=== PATIENT | female | born 1970 | race Hispanic/Latino ===

== ENCOUNTER 2017-06-24 11:08 | Day surgery (SDC) | payer OTHER ==
[2017-06-23 08:01] VITALS: BMI 25.7
[2017-06-24 11:56] LABS: BASO # 0.02 K/mm3 (0.0-2.0); BASO % 0.5 % (0.0-3.0); EOS # 0.1 (0.0-0.7); EOS % 1.8 % (1.5-5.0); GRAN # 1.72 (1.4-6.5); GRAN % 43.1 % (50.0-68.0); HEMATOCRIT 39.7 % (36.0-48.0); LYMPH # 1.9 (1.2-3.4); LYMPH % 47.6 % (22.0-35.0); MEAN CELL VOLUME 86.7 fl (80.0-105.0); MEAN CORPUSCULAR HEMOGLOBIN 29.3 pg (25.0-35.0); MEAN CORPUSCULAR HGB CONC 33.8 g/dl (31.0-37.0); MONO # 0.3 (0.1-0.6); RED CELL DISTRIBUTION WIDTH 12.9 % (11.5-14.5)
[2017-06-24 11:58] LABS: BLOOD UREA NITROGEN 18 mg/dL (7-21); CALCIUM 9.6 mg/dL (8.4-10.5); CARBON DIOXIDE 30 mmol/L (21-33); CHLORIDE 102 mmol/L (98-107); GFR AFRICAN-AMERICAN > 60; GLUCOSE,RANDOM 87 mg/dL (70-110); POTASSIUM 3.9 mmol/L (3.6-5.0); SODIUM 142 mmol/L (132-148)
[2017-06-24 12:02] LABS: INR 1.12 (0.93-1.08); PARTIAL THROMBOPLASTIN TIME 32.8 Seconds (25.1-36.5)
[2017-06-24] MEDS ORDERED: Midazolam 2 MG/2 ML VIAL ONE (12:55)
[2017-06-24] MEDS ORDERED: Lidocaine 1% Inj (20ml) ONE (12:56)
[2017-06-24] MEDS ORDERED: Oxycodone/Acetaminophen 5/325 mg Tab PO PRN (13:42)
[2017-06-24] MEDS ORDERED: Sodium Chloride 0.45% 1,000 ML IV SCH (13:45)
[2017-06-24] MEDS ORDERED: Oxycodone/Acetaminophen 5/325 mg Tab ONE (14:36)
[2017-06-24 14:49] VITALS: TEMP 97.4; O2SAT 100
[2017-06-24 17:08] VITALS: BP 118/760; PULSE 56; RESP 18
--- NOTE | 2017-06-24 19:32 | US ---
PROCEDURE: Ultrasound-guided right thyroid fine needle aspiration biopsy. CLINICAL HISTORY: Solitary 3 cm right thyroid nodule. Evaluate for malignancy. PHYSICIAN(S): Ian Hooker M.D. TECHNIQUE: The relative risks and indications for the procedure were explained to the patient and consent obtained. The patient was placed supine on the stretcher with the neck extended and preliminary sonography of the thyroid performed. This reveal a well-defined 3 cm hypoechoic nodule with cystic areas. The remainder of the thyroid parenchyma is homogeneous in echotexture. The neck was prepped and draped in the usual sterile fashion. Conscious sedation and monitoring were provided throughout the procedure by a nurse. 1% Xylocaine was used to anesthetize the skin and soft tissues at the access site. Three passes with a 22-gauge needle were performed under ultrasound guidance for fine needle aspiration of the 3 cm hypoechoic nodule in the right thyroid. The slides were reviewed by pathology and deemed adequate. The patient tolerated the procedure well. IMPRESSION: 1. Ultrasound guided fine needle aspiration of a 3 cm hypoechoicnodule in the right thyroid.
== END 2017-06-24 17:30 | disposition home or self-care (01) ==
LOC: SDS 11:08
PROVIDERS: ATTEND Radiology Vascular & Interventional Radiology
DX: E04.1 Nontoxic single thyroid nodule (principal)
CPT/HCPCS: 10022; 36415; 80048; 85025; 85610; 85730; 88173; 88305; J2250; J2405; J3010; J7030

== ENCOUNTER 2018-01-20 13:59 | Emergency (ER) | payer OTHER ==
--- NOTE | 2018-01-20 14:38 | ED PDOC ---
Arrival/HPI - General Time Seen by Provider: 01/20/18 14:36 Historian: Patient, Family - History of Present Illness Narrative History of Present Illness (Text): 01/20/18 14:38 47 y/o female, pmh including varicose vein, post menopausal, c/o lt. leg rash without pain or swelling x 2 days. Pt. stated that she was scratching the varicose vein/rash couple days ago as it was itching her, resulted in tiny dot rashes, not on any blood thinner or anticoagulant, no pain or fever, no numbness or tingling, no palpitation, no other medical or psychological complaints. Past Medical History - Provider Review Nursing Documentation Reviewed: Yes - Cardiac Hx Pacemaker: No - Neurological Hx Paralysis: No - Hematological/Oncological Hx Blood Transfusions: No - Musculoskeletal/Rheumatological Hx Musculoskeletal Disorders: No - Psychiatric Hx Emotional Abuse: No Hx Physical Abuse: No Hx Substance Use: No - Anesthesia Hx Anesthesia Reactions: No Hx Malignant Hyperthermia: No - Suicidal Assessment Feels Threatened In Home Enviroment: No Family/Social History - Physician Review Nursing Documentation Reviewed: Yes Family/Social History: Unknown Family HX Hx Alcohol Use: No Hx Substance Use: No Allergies/Home Meds Allergies/Adverse Reactions: Allergies No Known Allergies Allergy (Verified 06/23/17 08:00) Review of Systems - Review of Systems Constitutional: absent: Fatigue, Fevers Eyes: absent: Vision Changes ENT: absent: Hearing Changes Respiratory: absent: SOB, Cough Cardiovascular: absent: Chest Pain Gastrointestinal: absent: Abdominal Pain, Nausea, Vomiting Musculoskeletal: absent: Arthralgias, Back Pain Skin: Rash, Pruritis. absent: Skin Lesions, Laceration, Abscess, Ulcer, Cellulitis Neurological: absent: Headache, Dizziness Psychiatric: absent: Anxiety, Depression, Suicidal Ideation Physical Exam Vital Signs Reviewed: Yes Vital Signs Temp Pulse Resp BP Pulse Ox 01/20/18 14:34 97.8 F 61 16 121/72 99 Temperature: Afebrile Blood Pressure: Normal Pulse: Regular Respiratory Rate: Normal Appearance: Positive for: Well-Appearing, Non-Toxic, Comfortable Pain Distress: None Mental Status: Positive for: Alert and Oriented X 3 - Systems Exam Head: Present: Atraumatic, Normocephalic Pupils: Present: PERRL Extroacular Muscles: Present: EOMI Conjunctiva: Present: Normal Mouth: Present: Moist Mucous Membranes Neck: Present: Normal Range of Motion Respiratory/Chest: Present: Clear to Auscultation, Good Air Exchange. No: Respiratory Distress, Accessory Muscle Use Cardiovascular: Present: Regular Rate and Rhythm, Normal S1, S2. No: Murmurs Abdomen: No: Tenderness, Distention, Peritoneal Signs Back: Present: Normal Inspection Upper Extremity: Present: Normal Inspection. No: Cyanosis, Edema Lower Extremity: Present: Normal Inspection. No: Edema Neurological: Present: GCS=15, CN II-XII Intact, Speech Normal Skin: Present: Warm, Dry, Rashes (lt. distal tibia/fibula regon noted to have patchy approx. [id number] petechiae rash with mild pauple rash noted, no streaking or cellulitis, no ulcers. ), Normal Color Psychiatric: Present: Alert, Oriented x 3, Normal Insight, Normal Concentration Medical Decision Making ED Course and Treatment: 01/20/18 15:17 Differential: dermatitis vs. thrombocytopenia vs. rash -cbc to check platete -observe and reassess 01/20/18 15:34 -Labs are non-significant. -Discharge home with hydrocortisone, avoid rubbing or scratching the skin or varicose vein, follow up with your own pmd and cook apprentice within 2 days, return to the ER for any new or worsening signs or symptoms. - Lab Interpretations Lab Results: 01/20/18 15:10 Lab Results 01/20/18 15:10: WBC 5.0 D, RBC 4.35, Hgb 12.3, Hct 36.1, MCV 83.0 D, MCH 28.3 , MCHC 34.1, RDW 12.9, Plt Count 226, MPV 9.8, Gran % 45.8 L, Lymph % (Auto) 45.0 H, [place] % (Auto) 6.2 H, Eos % (Auto) 2.6, Baso % (Auto) 0.4, Gran # 2.28, Lymph # (Auto) 2.2, [place] # (Auto) 0.3, Eos # (Auto) 0.1, Baso # (Auto) 0.02 I have reviewed the lab results: Yes - PA / COUPLER / Resident Statement MD/DO has reviewed & agrees with the documentation as recorded. Disposition/Present on Arrival - Present on Arrival Any Indicators Present on Arrival: No History of DVT/PE: No History of Uncontrolled Diabetes: No Urinary Catheter: No History of Decub. Ulcer: No - Disposition Have Diagnosis and Disposition been Completed?: Yes Diagnosis: Petechiae or ecchymoses, Dermatitis Disposition: HOME/ ROUTINE Disposition Time: 15:18 Patient Plan: Discharge Patient Problems: Current Active Problems Problem Status Onset Dermatitis Acute Petechiae or ecchymoses Acute Condition: GOOD Additional Instructions: -Discharge home with hydrocortisone, avoid rubbing or scratching the skin or varicose vein, follow up with your own pmd and cook apprentice within 2 days, return to the ER for any new or worsening signs or symptoms. Prescriptions: Hydrocortisone 1% Cream [Cortizone 1% Cream] 1 appl TP BID #30 g Referrals: PCP,NO [Primary Care Provider] - Follow up with primary Mady Solis MD [Staff Provider] - Follow up with primary [facility] [place] [facility] [place] - Follow up with primary Forms: WORK NOTE
[2018-01-20 14:39] VITALS: BP 121/72; PULSE 61; RESP 16; TEMP 97.8; O2SAT 99; BMI 23.1
[2018-01-20 15:26] LABS: BASO # 0.02 K/mm3 (0.0-2.0); BASO % 0.4 % (0.0-3.0); EOS # 0.1 (0.0-0.7); EOS % 2.6 % (1.5-5.0); GRAN # 2.28 (1.4-6.5); GRAN % 45.8 % (50.0-68.0); HEMOGLOBIN 12.3 g/dL (12.0-16.0); LYMPH # 2.2 (1.2-3.4); MEAN CORPUSCULAR HEMOGLOBIN 28.3 pg (25.0-35.0); MEAN CORPUSCULAR HGB CONC 34.1 g/dl (31.0-37.0); MEAN PLATELET VOLUME 9.8 fl (7.0-11.0); MONO # 0.3 (0.1-0.6); MONO % 6.2 % (1.0-6.0); RBC 4.35 10^6/uL (3.5-6.1); RED CELL DISTRIBUTION WIDTH 12.9 % (11.5-14.5)
== END 2018-01-20 15:38 | disposition home or self-care (01) ==
LOC: ED 13:59
DX: R23.3 Spontaneous ecchymoses (principal); L30.9 Dermatitis, unspecified

== ENCOUNTER 2018-02-12 09:49 | Emergency (ER) | payer OTHER ==
[2018-02-12 09:50] VITALS: BMI 23.1
--- NOTE | 2018-02-12 10:50 | ED PDOC ---
Arrival/HPI - General Chief Complaint: Abdominal Pain Time Seen by Provider: 02/12/18 10:36 Historian: Patient - History of Present Illness Narrative History of Present Illness (Text): 02/12/18 10:37 47 y/o female, pmh including varicose vein, nkda, post menopausal, c/o generalized abdominal pain x 3 days with no fall or trauma. Pt. stated that she has upper and lower abdominal pain, non-radiating, associated with distension, feels nausea but no vomiting, no diarrhea, no recent traveling, no urinary symptoms, no night sweat, no palpitation or chest pain, no vaginal discharge or bleeding, no numbness or tingling, no vaginal bleeding or discharge , no other medical or psychological complaints. Past Medical History - Provider Review Nursing Documentation Reviewed: Yes - Infectious Disease Hx of Infectious Diseases: None - Cardiac Hx Cardiac Disorders: No - Pulmonary Hx Respiratory Disorders: No - Neurological Hx Neurological Disorder: No - HEENT Hx HEENT Disorder: No - Renal Hx Renal Disorder: No - Endocrine/Metabolic Hx Endocrine Disorders: Yes Other/Comment: THYROID MASS - Hematological/Oncological Hx Blood Disorders: No - Integumentary Hx Dermatological Disorder: No - Musculoskeletal/Rheumatological Hx Musculoskeletal Disorders: No - Gastrointestinal Hx Gastrointestinal Disorders: No - Genitourinary/Gynecological Hx Genitourinary Disorders: No - Psychiatric Hx Psychophysiologic Disorder: No Hx Substance Use: No - Anesthesia Hx Anesthesia Reactions: No Hx Malignant Hyperthermia: No - Suicidal Assessment Feels Threatened In Home Enviroment: No Family/Social History - Physician Review Nursing Documentation Reviewed: Yes Family/Social History: Unknown Family HX Smoking Status: Never Smoked Hx Alcohol Use: Yes Frequency of alcohol use: Socially Hx Substance Use: No Allergies/Home Meds Allergies/Adverse Reactions: Allergies No Known Allergies Allergy (Verified 02/12/18 10:25) Review of Systems - Review of Systems Constitutional: absent: Fatigue, Fevers Eyes: absent: Vision Changes ENT: absent: Hearing Changes Respiratory: absent: SOB, Cough Cardiovascular: absent: Chest Pain Gastrointestinal: Abdominal Pain, Nausea. absent: Diarrhea, Vomiting Musculoskeletal: absent: Arthralgias, Back Pain Skin: absent: Rash, Pruritis, Skin Lesions Neurological: absent: Headache, Dizziness Psychiatric: absent: Anxiety, Depression, Suicidal Ideation Physical Exam Vital Signs Reviewed: Yes Vital Signs Temp Pulse Resp BP Pulse Ox 02/12/18 11:32 85 19 132/56 L 98 02/12/18 10:26 98.4 F 62 16 102/62 99 Temperature: Afebrile Blood Pressure: Normal Pulse: Regular Respiratory Rate: Normal Appearance: Positive for: Well-Appearing, Non-Toxic, Comfortable Pain Distress: Moderate Mental Status: Positive for: Alert and Oriented X 3 - Systems Exam Head: Present: Atraumatic, Normocephalic Pupils: Present: PERRL Extroacular Muscles: Present: EOMI Conjunctiva: Present: Normal Mouth: Present: Moist Mucous Membranes Neck: Present: Normal Range of Motion Respiratory/Chest: Present: Clear to Auscultation, Good Air Exchange. No: Respiratory Distress, Accessory Muscle Use Cardiovascular: Present: Regular Rate and Rhythm, Normal S1, S2. No: Murmurs Abdomen: Present: Tenderness (+ttp on the epigastric and periumbilical region, negative russell signs. ). No: Distention, Peritoneal Signs, Rebound, Guarding Back: Present: Normal Inspection. No: CVA Tenderness, Midline Tenderness Upper Extremity: Present: Normal Inspection. No: Cyanosis, Edema Lower Extremity: Present: Normal Inspection. No: Edema Neurological: Present: GCS=15, CN II-XII Intact, Speech Normal, Motor Func Grossly Intact, Gait Normal, Memory Normal Skin: Present: Warm, Dry, Normal Color. No: Rashes Psychiatric: Present: Alert, Oriented x 3, Normal Insight, Normal Concentration Medical Decision Making ED Course and Treatment: 02/12/18 10:56 Differential: Gastritis vs. Pancreatitis vs. Appendicitis vs. UTI -Labs/UA -CT abdomen and pelvis -IVF/pepcid/zofran -Observe and reassess 02/12/18 13:57 -Urine hcg is negative -UA show no UTI -Labs show no acute findings -Lipase is negative -CT abdomen and pelvis: No acute intra-abdominal findings except incidental disc bulging finding noted but the patient has no lower back pain or radiating extremity pain. -Pt.'s pain is decreased and resolved, gave juice and food, passed the po challange, no pain, vitally stable, stable for outpatient GI follow up. -Discharge home with pepcid, BRAT diet, follow up with your own pmd and GI within 2 days, return to the ER for any new or worsening signs or symptoms. - Lab Interpretations Lab Results: 02/12/18 11:30 02/12/18 11:30 Lab Results 02/12/18 11:30: WBC 4.9, RBC 4.38, Hgb 12.5, Hct 36.9, MCV 84.2, MCH 28.5, MCHC 33.9, RDW 13.0, Plt Count 210, MPV 9.7, Gran % 46.1 L, Lymph % (Auto) 42.2 H, [place] % (Auto) 8.1 H, Eos % (Auto) 3.0, Baso % (Auto) 0.6, Gran # 2.27, Lymph # ( Auto) 2.1, [place] # (Auto) 0.4, Eos # (Auto) 0.2, Baso # (Auto) 0.03 02/12/18 11:30: Sodium 143, Potassium 4.1, Chloride 105, Carbon Dioxide 29, Anion Gap 13, BUN 16, Creatinine 0.8, Est GFR ( Amer) > 60, Est GFR (Non- Af Amer) > 60, Random Glucose 93, Calcium 9.2, Magnesium 2.2, Total Bilirubin 0.5, AST 27, ALT 17, Alkaline Phosphatase 64, Total Protein 7.6, Albumin 4.2, Globulin 3.4, Albumin/Globulin Ratio 1.3, Lipase 55 02/12/18 11:29: Urine Color Yellow, Urine Appearance Clear, Urine pH 7.0, Ur Specific [place] 1.015, Urine Protein Negative, Urine Glucose (UA) Negative, Urine Ketones Negative, Urine Blood Negative, Urine Nitrate Negative, Urine Bilirubin Negative, Urine Urobilinogen 0.2, Ur Leukocyte Esterase Negative I have reviewed the lab results: Yes - RAD Interpretation Radiology Orders: 02/12/18 10:52 ABDOMEN & PELVIS [ABD & PELVIS IV CONTRAST ONLY] [CT] Stat PROCEDURE: CT Abdomen and Pelvis with contrast HISTORY: upper and lower abdominal pain x 3 days COMPARISON: None. TECHNIQUE: Contrast dose: 100 cc of Omni 300 Radiation dose: Total exam DLP = 418 mGy-cm. This CT exam was performed using one or more of the following dose reduction techniques: Automated exposure control, adjustment of the mA and/or kV according to patient size, and/or use of iterative reconstruction technique. FINDINGS: LOWER THORAX: Unremarkable. LIVER: Unremarkable. No gross lesion or ductal dilatation. GALLBLADDER AND BILE DUCTS: Unremarkable. PANCREAS: Unremarkable. No gross lesion or ductal dilatation. SPLEEN: Unremarkable. ADRENALS: Unremarkable. No mass. KIDNEYS AND URETERS: Unremarkable. No hydronephrosis. No solid mass. VASCULATURE: Unremarkable. No aortic aneurysm. BOWEL: Unremarkable. No obstruction. No gross mural thickening. APPENDIX: Normal appendix. PERITONEUM: Unremarkable. No free fluid. No free air. LYMPH NODES: Unremarkable. No enlarged lymph nodes. BLADDER: Unremarkable. REPRODUCTIVE: Unremarkable. BONES: Mild disc bulge at L1-2 and L2-3 OTHER FINDINGS: None. IMPRESSION: No acute intra-abdominal findings Geodetic Surveyor Technologist: Radiologist - Medication Orders Current Medication Orders: Sodium Chloride (Sodium Chloride 0.9%) 1,000 mls @ 100 mls/hr IV .Q10H ZEFERINO Last Admin: 02/12/18 11:36 Dose: 100 mls/hr eMAR Start Stop Document 02/12/18 11:36 GMI (Rec: 02/12/18 11:37 GMI [id number]) Intravenous Solution Start Date 02/12/18 Start Time 11:37 End Date 02/12/18 Discontinued Medications Famotidine (Pepcid) 20 mg IVP STAT STA Stop: 02/12/18 10:53 Last Admin: 02/12/18 11:38 Dose: 20 mg IVP Administration Document 02/12/18 11:38 GMI (Rec: 02/12/18 11:38 GMI [id number]) Charges for Administration # of IVP Administrations 1 Ondansetron HCl (Zofran Inj) 4 mg IVP STAT STA Stop: 02/12/18 10:53 Last Admin: 02/12/18 11:37 Dose: 4 mg IVP Administration Document 02/12/18 11:37 GMI (Rec: 02/12/18 11:38 GMI [id number]) Charges for Administration # of IVP Administrations 1 - PA / ANTISQUEAK FILLER / Resident Statement /DO has reviewed & agrees with the documentation as recorded. Disposition/Present on Arrival - Present on Arrival Any Indicators Present on Arrival: No History of DVT/PE: No History of Uncontrolled Diabetes: No Urinary Catheter: No History of Decub. Ulcer: No History Surgical Site Infection Following: None - Disposition Have Diagnosis and Disposition been Completed?: Yes Diagnosis: Abdominal pain Disposition: HOME/ ROUTINE Disposition Time: 12:47 Patient Plan: Discharge Patient Problems: Current Active Problems Problem Status Onset Abdominal pain Acute Condition: IMPROVED Additional Instructions: -Discharge home with pepcid, tylenol, BRAT diet, follow up with your own pmd and GI within 2 days, return to the ER for any new or worsening signs or symptoms. Prescriptions: Acetaminophen 2 tab PO QID PRN #30 tab PRN Reason: Other Famotidine [Pepcid] 20 mg PO BID #20 tab Referrals: Jake Pardo MD [Medical Doctor] - Follow up with primary [facility] [place]Outside] - Follow up with primary Forms: [employer] ([place]), WORK NOTE
[2018-02-12] MEDS ORDERED: Sodium Chloride 0.9% 1,000 ML IV SCH (11:00)
[2018-02-12 11:46] LABS: URINE BILIRUBIN NEGATIVE (NEGATIVE); URINE BLOOD NEGATIVE (NEGATIVE); URINE GLUCOSE (UA) NEGATIVE (NEGATIVE); URINE LEUKOCYTE ESTERASE NEGATIVE Leu/uL (NEGATIVE); URINE PROTEIN NEGATIVE mg/dL (<30 mg/dL); URINE UROBILINOGEN 0.2 E.U./dL (<1 E.U./dL)
[2018-02-12 11:46] LABS: BASO # 0.03 K/mm3 (0.0-2.0); BASO % 0.6 % (0.0-3.0); EOS # 0.2 (0.0-0.7); GRAN # 2.27 (1.4-6.5); GRAN % 46.1 % (50.0-68.0); HEMOGLOBIN 12.5 g/dL (12.0-16.0); LYMPH # 2.1 (1.2-3.4); LYMPH % 42.2 % (22.0-35.0); MEAN CELL VOLUME 84.2 fl (80.0-105.0); MEAN CORPUSCULAR HEMOGLOBIN 28.5 pg (25.0-35.0); MEAN CORPUSCULAR HGB CONC 33.9 g/dl (31.0-37.0); MEAN PLATELET VOLUME 9.7 fl (7.0-11.0); MONO # 0.4 (0.1-0.6); MONO % 8.1 % (1.0-6.0); RBC 4.38 10^6/uL (3.5-6.1); WHITE BLOOD COUNT 4.9 10^3/ul (4.5-11.0)
[2018-02-12 11:47] LABS: URINE APPEARANCE CLEAR (CLEAR); URINE COLOR YELLOW (YELLOW)
[2018-02-12 11:55] LABS: ALB/GLOB RATIO 1.3 (1.1-1.8); ALBUMIN 4.2 g/dL (3.0-4.8); ALT/SGPT 17 U/L (7-56); AST/SGOT 27 U/L (14-36); BLOOD UREA NITROGEN 16 mg/dL (7-21); CALCIUM 9.2 mg/dL (8.4-10.5); GFR AFRICAN-AMERICAN > 60; GFR NON-AFRICAN AMERICAN > 60; LIPASE 55 U/L (23-300)
[2018-02-12] MEDS ORDERED: Iohexol 350 MG/100 ML VIAL ONE (12:03)
--- NOTE | 2018-02-12 12:53 | CT ---
Date of service: 02/12/2018 PROCEDURE: CT Abdomen and Pelvis with contrast HISTORY: upper and lower abdominal pain x 3 days COMPARISON: None. TECHNIQUE: Contrast dose: 100 cc of Omni 300 Radiation dose: Total exam DLP = 418 mGy-cm. This CT exam was performed using one or more of the following dose reduction techniques: Automated exposure control, adjustment of the mA and/or kV according to patient size, and/or use of iterative reconstruction technique. FINDINGS: LOWER THORAX: Unremarkable. LIVER: Unremarkable. No gross lesion or ductal dilatation. GALLBLADDER AND BILE DUCTS: Unremarkable. PANCREAS: Unremarkable. No gross lesion or ductal dilatation. SPLEEN: Unremarkable. ADRENALS: Unremarkable. No mass. KIDNEYS AND URETERS: Unremarkable. No hydronephrosis. No solid mass. VASCULATURE: Unremarkable. No aortic aneurysm. BOWEL: Unremarkable. No obstruction. No gross mural thickening. APPENDIX: Normal appendix. PERITONEUM: Unremarkable. No free fluid. No free air. LYMPH NODES: Unremarkable. No enlarged lymph nodes. BLADDER: Unremarkable. REPRODUCTIVE: Unremarkable. BONES: Mild disc bulge at L1-2 and L2-3 OTHER FINDINGS: None. IMPRESSION: No acute intra-abdominal findings
[2018-02-12 14:39] VITALS: BP 128/63; PULSE 73; RESP 18; TEMP 98.3; O2SAT 99
== END 2018-02-12 14:40 | disposition home or self-care (01) ==
LOC: ED 09:49
DX: R10.30 Lower abdominal pain, unspecified (principal)
CPT/HCPCS: 74177; 80053; 81003; 83690; 83735; 85025; 96361; 96374; 96375; 99284; J2405; J7030; Q9967

== ENCOUNTER 2018-09-19 21:35 | Emergency (ER) | payer SELFPAY ==
[2018-09-19 21:35] VITALS: BMI 23.1
[2018-09-19 21:55] VITALS: RESP 18; TEMP 98
--- NOTE | 2018-09-20 00:16 | ED PDOC ---
Arrival/HPI - General Chief Complaint: Lower Extremity Problem/Injury Time Seen by Provider: 09/19/18 21:56 Historian: Patient, Family, Electrical Automation Engineer (Conference Hound audio experience expert ID: [id number]) - History of Present Illness Narrative History of Present Illness (Text): 09/20/18 00:13 48-year-old female presents today with right foot pain since 2 PM today. Patient states she is having a sharp pain in the right foot and ankle. Patient states the pain started suddenly at 2 PM when she went to get up from her desk. Patient is complaining of pain that extends from the foot and ankle up to the right knee. Patient states she took unknown medication at home which seem to have helped with the pain in the leg but she still has pain along the dorsal aspect of the foot worse with movement. She denies numbness weakness or tingling in the extremity no trauma or injury. No other complaints Past Medical History - Provider Review Nursing Documentation Reviewed: Yes - Travel History Have you recently traveled outside [place] w/in the past 3 mons?: No - Infectious Disease Hx of Infectious Diseases: None - Tetanus Immunization Tetanus Immunization: Unknown - Reproductive Menopause: Yes - Cardiac Hx Cardiac Disorders: No - Pulmonary Hx Respiratory Disorders: No - Neurological Hx Neurological Disorder: No - HEENT Hx HEENT Disorder: No - Renal Hx Renal Disorder: No - Endocrine/Metabolic Hx Endocrine Disorders: Yes Other/Comment: THYROID MASS - Hematological/Oncological Hx Blood Disorders: No - Integumentary Hx Dermatological Disorder: No - Musculoskeletal/Rheumatological Hx Musculoskeletal Disorders: No - Gastrointestinal Hx Gastrointestinal Disorders: No - Genitourinary/Gynecological Hx Genitourinary Disorders: No - Psychiatric Hx Psychophysiologic Disorder: No Hx Substance Use: No - Anesthesia Hx Anesthesia Reactions: No Hx Malignant Hyperthermia: No - Suicidal Assessment Feels Threatened In Home Enviroment: No Family/Social History - Physician Review Nursing Documentation Reviewed: Yes Family/Social History: Unknown Family HX Smoking Status: Never Smoked Hx Alcohol Use: Yes Hx Substance Use: No Allergies/Home Meds Allergies/Adverse Reactions: Allergies No Known Allergies Allergy (Verified 09/19/18 21:52) Review of Systems - Review of Systems Constitutional: absent: Fatigue, Fevers Respiratory: absent: SOB, Cough Cardiovascular: absent: Chest Pain, Palpitations Gastrointestinal: absent: Abdominal Pain, Nausea, Vomiting Genitourinary Female: absent: Dysuria Musculoskeletal: Arthralgias. absent: Back Pain, Neck Pain Skin: absent: Rash, Pruritis Neurological: absent: Headache, Dizziness Psychiatric: absent: Anxiety, Depression Physical Exam Vital Signs Reviewed: Yes Vital Signs Temp Pulse Resp BP Pulse Ox 09/19/18 21:54 98.0 F 57 L 18 112/73 98 Temperature: Afebrile Blood Pressure: Normal Pulse: Regular Respiratory Rate: Normal Appearance: Positive for: Well-Appearing, Non-Toxic, Comfortable Pain Distress: None Mental Status: Positive for: Alert and Oriented X 3 - Systems Exam Head: Present: Atraumatic Mouth: Present: Moist Mucous Membranes Neck: Present: Normal Range of Motion Respiratory/Chest: Present: Clear to Auscultation, Good Air Exchange. No: Respiratory Distress, Accessory Muscle Use Cardiovascular: Present: Regular Rate and Rhythm, Normal S1, S2. No: Murmurs Upper Extremity: Present: Normal Inspection Lower Extremity: Present: Normal Inspection, NORMAL PULSES, Normal ROM, Tenderness (right foot; + ttp over dorsal lateral aspect of foot; no ttp over lateral malleolus; no calf tenderness. no edema, no erythema; no ecchymosis; sensation and distal pulses intact. cap refill <2. ), Neurovascularly Intact, Capillary Refill < 2 s. No: Edema, CALF TENDERNESS, Swelling, Erythema, Deformity Neurological: Present: GCS=15, Speech Normal Skin: Present: Warm, Dry, Normal Color Psychiatric: Present: Alert, Oriented x 3 Medical Decision Making ED Course and Treatment: 09/20/18 00:16 Patient is nontoxic well-appearing in no distress with stable vital signs lungs are clear to auscultation bilaterally. xray right foot; no fracture xray right ankle; no fracture Venous duplex of the right lower extremity; no dvt verbal report by crown and bridge dental lab technician toradol given for pain. Patient reassessment; patient is nontoxic well-appearing in no distress with stable vital signs. pt states pain has fully resolved. vicky wrap and crutches given for ambulation. All results discussed with the patient in depth and all discharge instructions discussed with patient using costume design teacher Conference Hound audio costume design teacher multiple knife edge trimmer operator ID; [id number] I discussed the results with patient about followup with a primary care physician within the next 2 days as well as the orthopedist. I've advised return if symptoms worsen persist or if there's concerning symptoms develop. Patient verbalizes understanding of discharge instructions and need for immediate followup. All aspects of this case were discussed the attending of record. Impression: Leg pain, foot pain Motrin every 6 hours as needed for pain Followup primary care physician within the next 2 days Follow up with the orthopedist within the next 2 days rest, ice, compression, elevation Use crutches for ambulation Return if symptoms worsen persist or if new symptoms develop Reassessment Condition: Re-examined, Improved - RAD Interpretation Radiology Orders: 09/19/18 22:44 ANKLE RIGHT 3 VIEWS ROUTINE [RAD] Stat FOOT RIGHT 3 VIEWS ROUTINE [RAD] Stat 09/19/18 23:47 DUPLEX LOWER EXTRM VEIN RIGHT [US] Stat - Medication Orders Current Medication Orders: Discontinued Medications Ketorolac Tromethamine (Toradol) 60 mg IM STAT STA Stop: 09/19/18 23:48 Disposition/Present on Arrival - Present on Arrival Any Indicators Present on Arrival: No History of DVT/PE: No History of Uncontrolled Diabetes: No Urinary Catheter: No History of Decub. Ulcer: No History Surgical Site Infection Following: None - Disposition Have Diagnosis and Disposition been Completed?: Yes Diagnosis: Leg pain, Foot pain Disposition Time: 00:18 Patient Plan: Discharge Patient Problems: Current Active Problems Problem Status Onset Leg pain Acute Condition: GOOD Discharge Instructions (ExitCare): Muscle and Bone Pain (DC) Additional Instructions: Motrin every 6 hours as needed for pain Followup primary care physician within the next 2 days Follow up with the orthopedist within the next 2 days rest, ice, compression, elevation Use crutches for ambulation Return if symptoms worsen persist or if new symptoms develop Prescriptions: Ibuprofen [Motrin] 600 mg PO Q6H PRN #20 tab PRN Reason: pain/fever reduction Referrals: PCP,NO [Primary Care Provider] - Follow up with primary Brandon Tobin MD [Staff Provider] - Follow up with primary Jolie Oropeza MD [Medical Doctor] - Follow up with primary [facility] [Outside] - Follow up with primary [facility] [Outside] - Follow up with primary Forms: [employer] ([place]), WORK NOTE
[2018-09-20 03:10] VITALS: BP 117/82; PULSE 61; O2SAT 100
--- NOTE | 2018-09-20 10:59 | RAD ---
Date of service: 09/19/2018 PROCEDURE: Right Ankle Radiographs. HISTORY: Lower extremity/ankle pain COMPARISON: September 19, 2018. Right foot reported separately FINDINGS: BONES: Normal. No fracture. JOINTS: Normal. No osteoarthritis. Ankle mortise maintained. Talar dome intact SOFT TISSUES: Normal. OTHER FINDINGS: None. IMPRESSION: Normal right ankle radiographs.
--- NOTE | 2018-09-20 10:59 | RAD ---
Date of service: 09/19/2018 PROCEDURE: Right Foot Radiographs. HISTORY: foot pain, lateral aspect COMPARISON: None. FINDINGS: BONES: Hallux valgus deformity. Moderate JOINTS: Normal. SOFT TISSUES: Normal. OTHER FINDINGS: None. IMPRESSION: No significant or acute findings to account for/ related to the clinical presentation. Additional benign and/or incidental findings described above.
--- NOTE | 2018-09-20 18:57 | US ---
PROCEDURE: Right lower extremity venous US HISTORY: Leg pain and swelling. Evaluate for DVT. PHYSICIAN(S): Ian Hooker M.D. TECHNIQUE: Duplex sonography and color-flow Doppler with graded compression were used to evaluate the deep venous system of the right lower extremity. FINDINGS: The visualized deep venous system of the right lower extremity is sonographically normal and compressible. Normal waveforms and augmentation are seen. There is no sonographic evidence for deep venous thrombosis in the visualized segments of the right lower extremity. IMPRESSION: 1. No sonographic evidence for deep venous thrombosis in the visualized segments of the right lower extremity.
== END 2018-09-20 02:20 | disposition home or self-care (01) ==
LOC: ED 21:35
DX: M79.604 Pain in right leg (principal); M79.671 Pain in right foot
CPT/HCPCS: 73610; 73630; 81025; 93971; 96372; 99284; J1885

== ENCOUNTER 2018-11-21 17:47 | Emergency (ER) | payer OTHER ==
[2018-11-21 17:56] VITALS: BMI 22.8
[2018-11-21 17:57] VITALS: TEMP 97.9; O2SAT 100
--- NOTE | 2018-11-21 18:45 | ED PDOC ---
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 pt states she woke up 2 days ago with pain to the right side of the neck. pt denies any trauma or injury. no fever/chill. pt took 1 tablet of motrin for pain and applied icyhot patch without relief. pt denies headache. pt states pain is worse with attempted rom of neck to the left so she holds her head to the right. Past Medical History - Provider Review Nursing Documentation Reviewed: Yes - Travel History Have you recently traveled outside [place] w/in the past 3 mons?: No - Infectious Disease Hx of Infectious Diseases: None - Tetanus Immunization Tetanus Immunization: Unknown - Cardiac Hx Cardiac Disorders: No - Pulmonary Hx Respiratory Disorders: No - Neurological Hx Neurological Disorder: No - HEENT Hx HEENT Disorder: No - Renal Hx Renal Disorder: No - Endocrine/Metabolic Hx Endocrine Disorders: Yes Other/Comment: THYROID MASS - Hematological/Oncological Hx Blood Disorders: No - Integumentary Hx Dermatological Disorder: No - Musculoskeletal/Rheumatological Hx Musculoskeletal Disorders: No - Gastrointestinal Hx Gastrointestinal Disorders: No - Genitourinary/Gynecological Hx Genitourinary Disorders: No - Psychiatric Hx Psychophysiologic Disorder: No Hx Substance Use: No - Anesthesia Hx Anesthesia Reactions: No Hx Malignant Hyperthermia: No - Suicidal Assessment Feels Threatened In Home Enviroment: No Family/Social History - Physician Review Nursing Documentation Reviewed: Yes Family/Social History: Unknown Family HX Smoking Status: Never Smoked Hx Alcohol Use: Yes Hx Substance Use: No Allergies/Home Meds Allergies/Adverse Reactions: Allergies No Known Allergies Allergy (Verified 11/21/18 17:56) Review of Systems - Review of Systems Constitutional: absent: Fatigue, Fevers Respiratory: absent: SOB, Cough Cardiovascular: absent: Chest Pain, Palpitations Gastrointestinal: absent: Abdominal Pain, Nausea, Vomiting Genitourinary Female: absent: Dysuria, Frequency, Hematuria Musculoskeletal: Neck Pain Skin: absent: Rash, Pruritis Neurological: absent: Headache, Dizziness Psychiatric: absent: Anxiety, Depression Physical Exam Vital Signs Reviewed: Yes Vital Signs Temp Pulse Resp BP Pulse Ox 11/21/18 17:57 97.9 F 85 18 115/76 100 Temperature: Afebrile Blood Pressure: Normal Pulse: Regular Respiratory Rate: Normal Appearance: Positive for: Well-Appearing, Non-Toxic, Comfortable Pain Distress: None Mental Status: Positive for: Alert and Oriented X 3 - Systems Exam Head: Present: Atraumatic Mouth: Present: Moist Mucous Membranes Neck: Present: Normal Range of Motion, MIDLINE TENDERNESS, Paraspinal Tenderness (+ right sided trapezius tenderness), Trachea Midline Respiratory/Chest: Present: Clear to Auscultation, Good Air Exchange. No: Respiratory Distress, Accessory Muscle Use Cardiovascular: Present: Regular Rate and Rhythm, Normal S1, S2. No: Murmurs Upper Extremity: Present: Normal ROM Lower Extremity: Present: Normal ROM Neurological: Present: GCS=15, Speech Normal Skin: Present: Warm, Dry, Normal Color. No: Rashes Psychiatric: Present: Alert, Oriented x 3 Medical Decision Making ED Course and Treatment: 11/21/18 18:43 Patient nontoxic well-appearing in no distress with stable vital signs. pt with right sided neck pain. woke up in the morning 2 days ago with pain. no trauma or injury. holding head to the right. Toradol, valium Patient reassessment: Feeling better with medications, Muscle strength 5 out of 5 bilaterally. I advised to followup with the orthopedist within the next 2 days. Return if symptoms worsen persist or new symptoms develop all information was translated to the patient using Lao Grocery Clerk Selling ID #: [id number] (Dr Berna Herman) Patient verbalizes understanding of discharge instructions and need for immediate followup. All aspects of this case were discussed the attending of record. Impression: Neck pain Motrin every 6 hours as needed for pain Flexeril one tablet every 8 hours as needed for muscle spasms: May cause drowsiness Followup with the orthopedist within the next 2 days Followup with primary care physician within the next 2 days Return if symptoms worsen persist or if new symptoms develop Reassessment Condition: Re-examined, Improved Disposition/Present on Arrival - Present on Arrival Any Indicators Present on Arrival: No History of DVT/PE: No History of Uncontrolled Diabetes: No Urinary Catheter: No History of Decub. Ulcer: No History Surgical Site Infection Following: None - Disposition Have Diagnosis and Disposition been Completed?: Yes Diagnosis: Neck pain Disposition: HOME/ ROUTINE Disposition Time: 18:45 Patient Plan: Discharge Patient Problems: Current Active Problems Problem Status Onset Neck pain Acute Condition: GOOD Discharge Instructions (ExitCare): Neck Pain Additional Instructions: Motrin every 6 hours as needed for pain Flexeril one tablet every 8 hours as needed for muscle spasms: May cause drowsiness Followup with the orthopedist within the next 2 days Followup with primary care physician within the next 2 days Return if symptoms worsen persist or if new symptoms develop Prescriptions: Cyclobenzaprine [Cyclobenzaprine HCl] 10 mg PO Q8 #10 tab Ibuprofen [Motrin] 600 mg PO Q6H PRN #20 tab PRN Reason: pain/fever reduction Referrals: Jolie Oropeza MD [Medical Doctor] - Follow up with primary Mariangel Rasheed MD [Staff Provider] - Follow up with primary [employer] [Outside] - Follow up with primary Forms: [employer] (Belgian), WORK NOTE
[2018-11-21 20:10] VITALS: BP 112/82; PULSE 74; RESP 17
== END 2018-11-21 20:29 | disposition home or self-care (01) ==
LOC: ED 17:47
DX: M54.2 Cervicalgia (principal); E07.9 Disorder of thyroid, unspecified
CPT/HCPCS: 81025; 96372; 99283; J1885

== ENCOUNTER 2018-11-30 23:52 | Inpatient (IN) | payer MEDICAID, OTHER ==
[2018-12-01] MEDS ORDERED: Famotidine 20mg/50ml 20 MG in Premixed IV 50 EA IVPB STA (00:14)
[2018-12-01] MEDS ORDERED: Sodium Chloride 0.9% 1,000 ML IV SCH (00:15)
--- NOTE | 2018-12-01 00:22 | ED PDOC ---
Arrival/HPI - General Chief Complaint: Abdominal Pain Time Seen by Provider: 11/30/18 23:53 Historian: Patient - History of Present Illness Narrative History of Present Illness (Text): 12/01/18 00:18 48 year old female, whose past medical history includes thyroid mass, presents to the emergency department with abdominal pain, for 1 day. Patient informs pain started early in the morning. Patient informs pain became progressively worse until arrival today. Patient states pain comes in intense waves and then subsides. Patient informs she had some constipation yesterday. Patient states she does not feel much pain currently. Patient denies any fevers, chills, headache, dizziness, chest pain, shortness of breath, dyspnea on exertion, cough, diaphoresis, nausea, vomiting, diarrhea, back pain, neck pain, or any other complaint. Time/Duration: 24 hours Symptom Onset: Gradual Symptom Course: Unchanged, Intermittent Activities at Onset: Light Context: Home Past Medical History - Provider Review Nursing Documentation Reviewed: Yes - Infectious Disease Hx of Infectious Diseases: None - Tetanus Immunization Tetanus Immunization: Unknown - Reproductive Menopause: Yes - Cardiac Hx Cardiac Disorders: No - Pulmonary Hx Respiratory Disorders: No - Neurological Hx Neurological Disorder: No - HEENT Hx HEENT Disorder: No - Renal Hx Renal Disorder: No - Endocrine/Metabolic Hx Endocrine Disorders: Yes Other/Comment: THYROID MASS - Hematological/Oncological Hx Blood Disorders: No - Integumentary Hx Dermatological Disorder: No - Musculoskeletal/Rheumatological Hx Musculoskeletal Disorders: No - Gastrointestinal Hx Gastrointestinal Disorders: No - Genitourinary/Gynecological Hx Genitourinary Disorders: No - Psychiatric Hx Psychophysiologic Disorder: No Hx Substance Use: No - Anesthesia Hx Anesthesia Reactions: No Hx Malignant Hyperthermia: No - Suicidal Assessment Feels Threatened In Home Enviroment: No Family/Social History - Physician Review Nursing Documentation Reviewed: Yes Family/Social History: No Known Family HX Smoking Status: Never Smoked Hx Alcohol Use: Yes Hx Substance Use: No Allergies/Home Meds Allergies/Adverse Reactions: Allergies No Known Allergies Allergy (Verified 12/01/18 00:02) Home Medications: Home Meds Medication Instructions Recorded Confirmed No Known Home Med 12/01/18 12/01/18 Review of Systems - Physician Review All systems were reviewed & negative as marked: Yes - Review of Systems Constitutional: absent: Fevers, Night Sweats Respiratory: absent: SOB, Cough Cardiovascular: absent: Chest Pain, LOPEZ Gastrointestinal: Abdominal Pain, Constipation. absent: Diarrhea, Nausea, Vomiting Musculoskeletal: absent: Back Pain, Neck Pain Neurological: absent: Headache, Dizziness Endocrine: absent: Diaphoresis Physical Exam - Physical Exam Narrative Physical Exam (Text): 12/01/18 00:22 Gen: VS reviewed, alert, well developed, well nourished, nontoxic, mild distress Eye: EOMI, PERRL ENT: normal pharynx. Neck: no JVD, supple, no adenopathy CV: regular rate, regular rhythm, no rubs,no murmur, S1, S2 Pulm: no distress, clear to auscultation, no wheeze, no rhonchi, breath sounds equal, no rales Abd: questionable mid abdominal tenderness, no guarding, no rebound, no rigidity Ext: no edema Skin: good color, no rash, no cyanosis Psych: responds appropriately to questions, normal affect Neuro: oriented x3, CN2-12 intact grossly, motor intact, sensation intact Vital Signs Reviewed: Yes Vital Signs Temp Pulse Resp BP Pulse Ox 12/01/18 00:05 97.8 F 52 L 18 127/77 98 Temperature: Afebrile Blood Pressure: Normal Pulse: Bradycardic Respiratory Rate: Normal Appearance: Positive for: Well-Appearing, Non-Toxic, Comfortable Pain Distress: None Mental Status: Positive for: Alert and Oriented X 3 Medical Decision Making ED Course and Treatment: 12/01/18 00:25 Impression: 48 year old female presents with lower abdominal pain. Plan: -- CT ABD & Pelvis -- CMP, Lipase -- CBC -- Famotidine -- POC -- Urinalysis -- Reassess and disposition Prior Visits: Notes and results from previous visits were reviewed. 12/01/18 04:22 patient with continued severe abdominal pain after fleet enema. patient only to pass minimal amount of stool. patient was able to urinate/empty bladder on own without catheterization. admit accepted by dr. mcmillan to the hospitalist service. - RAD Interpretation Narrative RAD Interpretations (Text): 12/01/18 04:16 CT SCAN OF THE ABDOMEN AND PELVIS WITH CONTRAST. CLINICAL HISTORY: Mid abdominal pain. TECHNIQUE: Multiple axial and coronal CT images were obtained through the abdomen and pelvis after administration of intravenous and oral contrast material. COMPARISON: 02/12/2018. COMMENTS: Mild diffuse thickening of the sigmoid and descending colon. Probably uncomplicated infectious/inflammatory pathology. Followup exam is recommended to exclude underlying neoplastic pathology. Moderate gaseous distention of the cecum and ascending colon with moderate amount of retained fecal material. 1.1 cm simple cyst in the right hepatic lobe. 1.3 cm simple splenic cyst. The liver is of uniform attenuation without mass or defect. There is no intra or extrahepatic biliary ductal dilatation. The spleen is normal. The gallbladder is within normal limits. The pancreas is of normal contour and attenuation characteristics. There is no evidence of adrenal mass. Both kidneys demonstrate prompt and equal nephrograms. The kidneys are normal in size, shape and configuration. There is no evidence of renal or ureteral mass. N o renal or ureteral calculi are identified. There is no hydroureter or hydronephrosis. No evidence for appendicitis. No evidence for small or large bowel obstruction. There is no evidence of abdominal ascites or lymphadenopathy. There is no evidence of intrinsic or extrinsic bladder mass. There is no pelvic ascites or lymphadenopathy. Images of the lung bases show no evidence of pleural or parenchymal mass. There are no pleural effusions. The bony structures are free of lytic or blastic lesions. Mild spondylosis. IMPRESSION: Mild diffuse thickening of the sigmoid and descending colon. Probably uncomplicated infectious/inflammatory pathology. Followup exam is recommended to exclude underlying neoplastic pathology. NO associated perforation or pneumatosis coli. Moderate gaseous distention of the cecum and ascending colon with moderate amount of retained fecal material. Radiology Orders: 12/01/18 00:14 ABDOMEN & PELVIS [ABD PELVIS PO & IV CONTRAST] [CT] Stat Rework Machine Operator: Radiologist - Medication Orders Current Medication Orders: Famotidine 20 mg/ (Miscellaneous) 50 mls @ 100 mls/hr IVPB STAT STA Stop: 12/01/18 00:43 Sodium Chloride (Sodium Chloride 0.9%) 1,000 mls @ 150 mls/hr IV .[id number] ZEFERINO - Scribe Statement The provider has reviewed the documentation as recorded by the Scribyissel Kim All medical record entries made by the Pepitoibyissel were at my direction and personally dictated by me. I have reviewed the chart and agree that the record accurately reflects my personal performance of the history, physical exam, medical decision making, and the department course for this patient. I have also personally directed, reviewed, and agree with the discharge instructions and disposition. Disposition/Present on Arrival - Present on Arrival Any Indicators Present on Arrival: No History of DVT/PE: No History of Uncontrolled Diabetes: No Urinary Catheter: No History of Decub. Ulcer: No History Surgical Site Infection Following: None - Disposition Have Diagnosis and Disposition been Completed?: Yes Diagnosis: Abdominal pain, Constipation Disposition: HOSPITALIZED Disposition Time: 02:21 Patient Plan: Observation Patient Problems: Current Active Problems Problem Status Onset Abdominal pain Acute Constipation Acute Condition: STABLE Forms: [employer] ([place]ir[place])
[2018-12-01] MEDS ORDERED: Iohexol 240 (50 ml) ONE (00:25)
[2018-12-01 00:44] LABS: BASO # 0.01 K/mm3 (0.0-2.0); BASO % 0.2 % (0.0-3.0); EOS # 0.2 (0.0-0.7); EOS % 3.9 % (1.5-5.0); LYMPH # 2.3 (1.2-3.4); LYMPH % 49.6 % (22.0-35.0); MEAN CELL VOLUME 81.9 fl (80.0-105.0); MEAN CORPUSCULAR HEMOGLOBIN 27.1 pg (25.0-35.0); MEAN CORPUSCULAR HGB CONC 33.1 g/dl (31.0-37.0); MEAN PLATELET VOLUME 9.2 fl (7.0-11.0); MONO # 0.3 (0.1-0.6); MONO % 7.2 % (1.0-6.0); RBC 4.42 10^6/uL (3.5-6.1); RED CELL DISTRIBUTION WIDTH 12.9 % (11.5-14.5); WHITE BLOOD COUNT 4.6 10^3/uL (4.5-11.0)
[2018-12-01 00:46] LABS: BLOOD UREA NITROGEN 14 mg/dL (7-21); GFR NON-AFRICAN AMERICAN > 60
[2018-12-01 00:48] LABS: ALB/GLOB RATIO 1.2 (1.1-1.8); ALBUMIN 4.4 g/dL (3.0-4.8); ALT/SGPT 18 U/L (7-56); AST/SGOT 22 U/L (14-36); CALCIUM 9.5 mg/dL (8.4-10.5); LIPASE 70 U/L (23-300)
[2018-12-01 00:51] LABS: PH,URINE 7.5 (4.7-8.0); URINE APPEARANCE CLEAR (CLEAR); URINE BILIRUBIN NEGATIVE (NEGATIVE); URINE BLOOD NEGATIVE (NEGATIVE); URINE COLOR STRAW (YELLOW); URINE GLUCOSE (UA) NEGATIVE (NEGATIVE); URINE LEUKOCYTE ESTERASE TRACE Leu/uL (NEGATIVE); URINE PROTEIN NEGATIVE mg/dL (<30 mg/dL); URINE UROBILINOGEN 0.2 E.U./dL (<1 E.U./dL)
[2018-12-01] MEDS ORDERED: Iohexol 350 MG/100 ML VIAL ONE (00:57)
[2018-12-01 01:14] LABS: URINE EPITHELIAL CELLS 0 - 2 /hpf (0-5); URINE RBC 0 - 2 /hpf (0-2)
[2018-12-01] MEDS ORDERED: Potassium Chloride 20 mEq ER Tab PO STA (04:36)
[2018-12-01] MEDS ORDERED: POLYETHYLENE GLYCOL 3350 17 GM/Dose PACKET PO STA (05:10)
[2018-12-01 05:22] VITALS: BMI 23.3
--- NOTE | 2018-12-01 05:25 | CP.PCM.HP ---
<TresSylvester - Last Filed: 12/01/18 05:29> History of Present Illness - History of Present Illness History of Present Illness: Sylvester Joshua, PGY1 H&P for Dr. Boyce cc: "abdominal pain x2 days" Patient is a 48 year old Grenadian Speaking female with PMHx thyroid mass who presents to the emergency department complaining of abdominal pain for 2 day duration. She says pain has been worsening for the past 2 days which prompted her arrival to the ED. Abdominal pain is dull and diffuse. She says she last had a bowel movement 2 days ago and her stool has been hard. Upon arrival to ED, she had a fleet enema and had some relief. She denies headache, fever, chills, shortness of breath, cp, unintentional weight loss, night sweats, nausea, vomiting, diarrhea. No urinary frequency/urgency/dysuria. She regularly has a bowel movement every day. No sick contacts or recent travel. She denies cancer history in the family. She does not follow up with a PMD and has never had a colonoscopy before. In regards to thryoid mass, she is aware and claims to be worked up 1 year ago. Patient's was present at bedside for translation. In regards to past visits to hospital, she regularly comes to ED but never gets admitted; she was previously here for andrade to wrist, foot pain, and neck pain. A full 12 point ROS was conducted and unremarkable except as stated above. PMD: None PMHx: thyroid mass PSHx: denies Meds: none Allergies: NKDA SocialHx: denies EtOH, smoking, illicit drug use. Lives with . FamHx: mother has diabetes. Otherwise, non-contributory. Present on Admission - Present on Admission Any Indicators Present on Admission: No Review of Systems - Review of Systems All systems: reviewed and no additional remarkable complaints except (as per HPI) Past Patient History - Infectious Disease Hx of Infectious Diseases: None - Tetanus Immunizations Tetanus Immunization: Unknown - Past Social History Smoking Status: Never Smoked - CARDIAC Hx Cardiac Disorders: No - PULMONARY Hx Respiratory Disorders: No - NEUROLOGICAL Hx Neurological Disorder: No - HEENT Hx HEENT Problems: No - RENAL Hx Chronic Kidney Disease: No - ENDOCRINE/METABOLIC Hx Endocrine Disorders: Yes Other/Comment: THYROID MASS - HEMATOLOGICAL/ONCOLOGICAL Hx Blood Disorders: No - INTEGUMENTARY Hx Dermatological Problems: No - MUSCULOSKELETAL/RHEUMATOLOGICAL Hx Musculoskeletal Disorders: No - GASTROINTESTINAL Hx Gastrointestinal Disorders: No - GENITOURINARY/GYNECOLOGICAL Hx Genitourinary Disorders: No - PSYCHIATRIC Hx Psychophysiologic Disorder: No - SURGICAL HISTORY Hx Surgeries: No - ANESTHESIA Hx Anesthesia Reactions: No Hx Malignant Hyperthermia: No Meds Allergies/Adverse Reactions: Allergies Allergy/AdvReac Type Severity Reaction Status Date / Time No Known Allergies Allergy Verified 12/01/18 00:02 Physical Exam - Constitutional Appears: No Acute Distress - Head Exam Head Exam: ATRAUMATIC, NORMAL INSPECTION, NORMOCEPHALIC - Eye Exam Eye Exam: EOMI, Normal appearance - ENT Exam ENT Exam: Mucous Membranes Moist - Neck Exam Additional comments: R-sided thyroid mass. Not painful to palpation. - Respiratory Exam Respiratory Exam: Clear to Auscultation Bilateral, NORMAL BREATHING PATTERN. absent: Accessory Muscle Use, Chest Wall Tenderness, Rales, Rhonchi, Wheezes - Cardiovascular Exam Cardiovascular Exam: RRR, +S1, +S2 - GI/Abdominal Exam GI & Abdominal Exam: Hypoactive Bowel Sounds, Soft, Tenderness (Diffuse mild abdominal tenderness. ). absent: Guarding, Rebound, Rigid - Extremities Exam Extremities exam: Positive for: normal capillary refill, normal inspection, pedal pulses present - Back Exam Back exam: NORMAL INSPECTION - Neurological Exam Neurological exam: Alert, CN II-XII Intact, Oriented x3 - Psychiatric Exam Psychiatric exam: Normal Affect, Normal Mood - Skin Skin Exam: Dry, Intact, Normal Color, Warm Results - Vital Signs Recent Vital Signs: Last Vital Signs Temp 97.3 F L 12/01/18 04:24 Pulse 60 12/01/18 04:24 Resp 18 12/01/18 04:24 BP 137/92 H 12/01/18 04:24 Pulse Ox 100 12/01/18 04:24 - Labs Result Diagrams: 12/01/18 00:24 12/01/18 00:24 Labs: Laboratory Results - last 24 hr 12/01/18 12/01/18 12/01/18 00:24 00:24 00:34 WBC 4.6 RBC 4.42 Hgb 12.0 Hct 36.2 MCV 81.9 MCH 27.1 MCHC 33.1 RDW 12.9 Plt Count 265 MPV 9.2 Neut % (Auto) 39.1 L Lymph % (Auto) 49.6 H Nicholas % (Auto) 7.2 H Eos % (Auto) 3.9 Baso % (Auto) 0.2 Lymph # (Auto) 2.3 Nicholas # (Auto) 0.3 Eos # (Auto) 0.2 Baso # (Auto) 0.01 Absolute Neuts (auto) 1.79 Sodium 142 Potassium 3.5 L Chloride 108 H Carbon Dioxide 23 Anion Gap 15 BUN 14 Creatinine 0.7 Est GFR ( Amer) > 60 Est GFR (Non-Af Amer) > 60 Random Glucose 96 Calcium 9.5 Total Bilirubin 0.4 AST 22 ALT 18 Alkaline Phosphatase 75 Total Protein 7.9 Albumin 4.4 Globulin 3.6 Albumin/Globulin Ratio 1.2 Lipase 70 Urine Color Straw Urine Appearance Clear Urine pH 7.5 Ur Specific [place] 1.015 Urine Protein Negative Urine Glucose (UA) Negative Urine Ketones Negative Urine Blood Negative Urine Nitrate Negative Urine Bilirubin Negative Urine Urobilinogen 0.2 Ur Leukocyte Esterase Trace H Urine RBC 0 - 2 Urine WBC 1 - 3 Ur Epithelial Cells 0 - 2 Urine Bacteria None Assessment & Plan - Assessment and Plan (Free Text) Assessment: Patient is a 48 year old Gren[place] Speaking female with PMHx thyroid mass who presents to the emergency department complaining of abdominal pain for 2 day duration. Plan: Diffuse Abdominal Pain 2/2 Severe Constipation - Toradol 15mg IVP q6 prn for pain control - Liquid diet; advance as tolerated - Fleet enema x2 - Colace - Miralax - Consider manual disimpaction if the above do not resolve symptoms - Encourage high fiber diet and increased water intake - UA negative for UTI - CT A/P w/ IV and PO Contrast: (Unofficial) Mild diffuse thickening of the sigmoid and descending colon. Probably uncomplicated infectious/inflammatory pathology. Followup exam is recommended to exclude underlying neoplastic pathology. NO associated perforation or pneumatosis coli. Moderate gaseous distention of the cecum and ascending colon with moderate amount of retained fecal material. - No previous colonoscopy, patient may benefit as outpatient procedure/screening Hypokalemia - K-dur 40meq ordered - K 3.5 in ED R-Sided Thyroid Mass - TSH ordered - Patient explained she would benefit from outpatient workup with PMD/Level Vial Marker for mass ppx: - scd Diet: clear liquid Dispo: Admit patient for observation. Anticipate discharge in the morning once constipation resolves. She will need outpatient workup with PMD. Case was discussed and reviewed with Attending Physician, Dr. Byoce <[email or web address] - Last Filed: 12/01/18 06:47> Results - Vital Signs Recent Vital Signs: Last Vital Signs Temp 98.5 F 12/01/18 05:11 Pulse 52 L 12/01/18 05:11 Resp 20 12/01/18 05:11 BP 154/88 H 12/01/18 05:11 Pulse Ox 100 12/01/18 05:11 - Labs Result Diagrams: 12/01/18 00:24 12/01/18 00:24 Labs: Laboratory Results - last 24 hr 12/01/18 12/01/18 12/01/18 00:24 00:24 00:34 WBC 4.6 RBC 4.42 Hgb 12.0 Hct 36.2 MCV 81.9 MCH 27.1 MCHC 33.1 RDW 12.9 Plt Count 265 MPV 9.2 Neut % (Auto) 39.1 L Lymph % (Auto) 49.6 H Nicholas % (Auto) 7.2 H Eos % (Auto) 3.9 Baso % (Auto) 0.2 Lymph # (Auto) 2.3 Nicholas # (Auto) 0.3 Eos # (Auto) 0.2 Baso # (Auto) 0.01 Absolute Neuts (auto) 1.79 Sodium 142 Potassium 3.5 L Chloride 108 H Carbon Dioxide 23 Anion Gap 15 BUN 14 Creatinine 0.7 Est GFR ( Amer) > 60 Est GFR (Non-Af Amer) > 60 Random Glucose 96 Calcium 9.5 Total Bilirubin 0.4 AST 22 ALT 18 Alkaline Phosphatase 75 Total Protein 7.9 Albumin 4.4 Globulin 3.6 Albumin/Globulin Ratio 1.2 Lipase 70 Urine Color Straw Urine Appearance Clear Urine pH 7.5 Ur Specific [place] 1.015 Urine Protein Negative Urine Glucose (UA) Negative Urine Ketones Negative Urine Blood Negative Urine Nitrate Negative Urine Bilirubin Negative Urine Urobilinogen 0.2 Ur Leukocyte Esterase Trace H Urine RBC 0 - 2 Urine WBC 1 - 3 Ur Epithelial Cells 0 - 2 Urine Bacteria None Attending/Attestation - Attestation I have personally seen and examined this patient.: Yes I have fully participated in the care of the patient.: Yes I have reviewed all pertinent clinical information: Yes
[2018-12-01] MEDS ORDERED: POLYETHYLENE GLYCOL 3350 17 GM/Dose PACKET PO SCH (10:00)
--- NOTE | 2018-12-01 10:35 | CT ---
Date of service: 12/01/2018 PROCEDURE: CT Abdomen and Pelvis with contrast HISTORY: mid abdominal pain COMPARISON: 02/12/2018 CT TECHNIQUE: Contrast dose: 100 cc of Omni 350 Radiation dose: Total exam DLP = 410.63 mGy-cm. This CT exam was performed using one or more of the following dose reduction techniques: Automated exposure control, adjustment of the mA and/or kV according to patient size, and/or use of iterative reconstruction technique. FINDINGS: LOWER THORAX: Unremarkable. LIVER: There is an 11 mm hypodense lesion in the right lobe of the liver which measures 50 Hounsfield units in density. This was not present on the previous study. This could represent a metastatic lesion. Clinical correlation is suggested. GALLBLADDER AND BILE DUCTS: Unremarkable. PANCREAS: Unremarkable. No gross lesion or ductal dilatation. SPLEEN: There is a 17 mm simple cyst in the spleen. This is unchanged ADRENALS: Unremarkable. No mass. KIDNEYS AND URETERS: Unremarkable. No hydronephrosis. No solid mass. VASCULATURE: Unremarkable. No aortic aneurysm. No aortic atherosclerotic calcification or mural plaque present. BOWEL: There is moderate to severe constipation especially in the right side of the colon. There is a focal area of mural thickening at the junction of the descending and sigmoid colon. This could represent colitis. A neoplastic lesion cannot be excluded. APPENDIX: Normal appendix. PERITONEUM: Unremarkable. No free fluid. No free air. LYMPH NODES: Unremarkable. No enlarged lymph nodes. BLADDER: Unremarkable. REPRODUCTIVE: Unremarkable. BONES: No acute fracture. OTHER FINDINGS: The report concurs with the preliminary [facility] report IMPRESSION: There is an 11 mm hypodense lesion in the right lobe of the liver which measures 50 Hounsfield units in density. This was not present on the previous study. This could represent a metastatic lesion. Clinical correlation is suggested. There is moderate to severe constipation especially in the right side of the colon. There is a focal area of mural thickening at the junction of the descending and sigmoid colon. This could represent colitis. A neoplastic lesion cannot be excluded.
[2018-12-01] MEDS: POLYETHYLENE GLYCOL 3350 17 GM/Dose PACKET PO SCH ×2 (10:50→18:24)
--- NOTE | 2018-12-01 12:33 | ED PDOC ---
ED Additional Note - Physician Additional Note Physician Additional Note: CT abd/pelvis placed into PA review folder; FINDINGS: LOWER THORAX: Unremarkable. LIVER: There is an 11 mm hypodense lesion in the right lobe of the liver which measures 50 Hounsfield units in density. This was not present on the previous study. This could represent a metastatic lesion. Clinical correlation is suggested. GALLBLADDER AND BILE DUCTS: Unremarkable. PANCREAS: Unremarkable. No gross lesion or ductal dilatation. SPLEEN: There is a 17 mm simple cyst in the spleen. This is unchanged ADRENALS: Unremarkable. No mass. KIDNEYS AND URETERS: Unremarkable. No hydronephrosis. No solid mass. VASCULATURE: Unremarkable. No aortic aneurysm. No aortic atherosclerotic calcification or mural plaque present. BOWEL: There is moderate to severe constipation especially in the right side of the colon. There is a focal area of mural thickening at the junction of the descending and sigmoid colon. This could represent colitis. A neoplastic lesion cannot be excluded. APPENDIX: Normal appendix. PERITONEUM: Unremarkable. No free fluid. No free air. LYMPH NODES: Unremarkable. No enlarged lymph nodes. BLADDER: Unremarkable. REPRODUCTIVE: Unremarkable. BONES: No acute fracture. OTHER FINDINGS: The report concurs with the preliminary [facility] report IMPRESSION: There is an 11 mm hypodense lesion in the right lobe of the liver which measures 50 Hounsfield units in density. This was not present on the previous study. This could represent a metastatic lesion. Clinical correlation is suggested. There is moderate to severe constipation especially in the right side of the colon. There is a focal area of mural thickening at the junction of the descending and sigmoid colon. This could represent colitis. A neoplastic lesion cannot be excluded. spoke with dr. Dorita ambrose; she is aware of the CT results of liver lesions can not exclude malignancy with constipation/ neoplastic lesion not excluded. she has GI on consult.
[2018-12-01] MEDS ORDERED: Mineral Oil Enema 135 ml RC ONE ×2 (16:16→17:00)
[2018-12-01] MEDS: Lactated Ringer's 1,000 ML IV SCH (20:45)
[2018-12-02] MEDS: Lactated Ringer's 1,000 ML IV SCH ×2 (04:33→12:16)
[2018-12-02 08:02] LABS: ALB/GLOB RATIO 1.2 (1.1-1.8); ALBUMIN 4.4 g/dL (3.0-4.8); ALT/SGPT 18 U/L (7-56); AST/SGOT 24 U/L (14-36); BLOOD UREA NITROGEN 9 mg/dL (7-21); CALCIUM 9.4 mg/dL (8.4-10.5); GFR NON-AFRICAN AMERICAN > 60
[2018-12-02 08:03] LABS: HEMOGLOBIN 13.9 g/dL (12.0-16.0); MEAN CELL VOLUME 81.9 fl (80.0-105.0); MEAN PLATELET VOLUME 9.5 fl (7.0-11.0); RBC 5.14 10^6/uL (3.5-6.1); RED CELL DISTRIBUTION WIDTH 13.1 % (11.5-14.5); WHITE BLOOD COUNT 7.3 10^3/uL (4.5-11.0)
--- NOTE | 2018-12-02 09:28 | RAD ---
Date of service: 12/01/2018 HISTORY: r/o obstruction/ perf; worsening abd pain COMPARISON: CT scan of the abdomen pelvis performed earlier the same day TECHNIQUE: 1 view obtained. FINDINGS: BOWEL: Enteric contrast in the ascending colon. Distension of colon presumably up to the level of the previously described focal area of mural thickening at the junction of the descending and sigmoid colon. BONES: Normal. OTHER FINDINGS: None. IMPRESSION: No evidence of free air. Distension of colon presumably up to the level of the previously described focal area of mural thickening at the junction of the descending and sigmoid colon.
[2018-12-02] MEDS ORDERED: NuLYTELY (NACL/NAHCO3/KCL/PEG) 4L PO ONE (10:18)
[2018-12-02] MEDS: POLYETHYLENE GLYCOL 3350 17 GM/Dose PACKET PO SCH (10:26)
[2018-12-02] MEDS: Mineral Oil Enema 135 ml RC SCH (11:05)
--- NOTE | 2018-12-02 11:29 | CP.PCM.CON ---
<CornelioarlinCarlosdilan - Last Filed: 12/02/18 11:35> History of Present Illness - History of Present Illness History of Present Illness: PGY-4 GI Fellow Consult 48-year-old Citizen Of [place] speaking female with a past medical history of thyroid mass (status post biopsy and 2017 with benign results) presenting with abdominal pain. She states over the last few days she has worsening, constant, diffuse abd pain. No clear precipitating or alleviating factors associated with the pain. Of note she states her last bowel movement was at least two days ago and that she has been struggling with constipation of the last few months which is new for her. She also reports about a 5 pound unintentional weight loss over that time. She denied any dysphagia, melena, nor hematochezia. No family history of colon rectal cancer. No prior endoscopic evaluations. 12 point ROS negative other than stated above Medical history: see above Surgical history: thyroid biopsy Medications: reviewed and chart Family history: denied G.I. problems Social history: denied x3 Allergies: no known drug allergies Past Patient History - Infectious Disease Hx of Infectious Diseases: None - Tetanus Immunizations Tetanus Immunization: Unknown - Past Social History Smoking Status: Never Smoked - CARDIAC Hx Cardiac Disorders: No - PULMONARY Hx Respiratory Disorders: No - NEUROLOGICAL Hx Neurological Disorder: No - HEENT Hx HEENT Problems: No - RENAL Hx Chronic Kidney Disease: No - ENDOCRINE/METABOLIC Hx Endocrine Disorders: Yes Other/Comment: THYROID MASS - HEMATOLOGICAL/ONCOLOGICAL Hx Blood Disorders: No - INTEGUMENTARY Hx Dermatological Problems: No - MUSCULOSKELETAL/RHEUMATOLOGICAL Hx Musculoskeletal Disorders: No - GASTROINTESTINAL Hx Gastrointestinal Disorders: No - GENITOURINARY/GYNECOLOGICAL Hx Genitourinary Disorders: No - PSYCHIATRIC Hx Psychophysiologic Disorder: No - SURGICAL HISTORY Hx Surgeries: No - ANESTHESIA Hx Anesthesia Reactions: No Hx Malignant Hyperthermia: No Meds Allergies/Adverse Reactions: Allergies Allergy/AdvReac Type Severity Reaction Status Date / Time No Known Allergies Allergy Verified 12/01/18 00:02 - Medications Medications: Current Medications Lactated Ringer's (Lactated Ringer's) 1,000 mls @ 125 mls/hr IV .Q8H [facility] Last Admin: 12/02/18 04:33 Dose: 125 mls/hr Ketorolac Tromethamine (Toradol) 15 mg IVP Q6 PRN PRN Reason: Pain, moderate (4-7) Last Admin: 12/02/18 06:46 Dose: 15 mg Mineral Oil (Fleet Mineral Oil Enema) 135 ml RC DAILY [facility] Last Admin: 12/02/18 11:05 Dose: 135 ml Ondansetron HCl (Zofran Inj) 4 mg IVP Q6H PRN PRN Reason: Nausea/Vomiting Last Admin: 12/02/18 06:47 Dose: 4 mg Physical Exam - Constitutional Appears: No Acute Distress, Other (uncomfortable) - Head Exam Head Exam: ATRAUMATIC, NORMAL INSPECTION - Eye Exam Eye Exam: EOMI. absent: Scleral icterus - ENT Exam ENT Exam: Mucous Membranes Moist. absent: Mucous Membranes Dry - Respiratory Exam Respiratory Exam: NORMAL BREATHING PATTERN. absent: Accessory Muscle Use - Cardiovascular Exam Cardiovascular Exam: REGULAR RHYTHM, RRR - GI/Abdominal Exam GI & Abdominal Exam: Diminished Bowel Sounds, Distended, Soft, Tenderness (w/o guarding). absent: Bruit, Firm, Guarding, Hernia, Organomegaly, Pulsatile Mass, Rebound - Extremities Exam Extremities exam: Positive for: normal inspection. Negative for: pedal edema - Neurological Exam Neurological exam: Alert, CN II-XII Intact - Psychiatric Exam Psychiatric exam: Normal Affect, Normal Mood - Skin Skin Exam: Normal Color, Warm Results - Vital Signs Recent Vital Signs: Last Vital Signs Temp 98.6 F 12/02/18 07:00 Pulse 87 12/02/18 07:00 Resp 18 12/02/18 07:00 BP 127/80 12/02/18 07:00 Pulse Ox 98 12/02/18 07:00 - Labs Result Diagrams: 12/02/18 07:00 12/02/18 07:00 Labs: Laboratory Results - last 24 hr 12/02/18 12/02/18 07:00 07:00 WBC 7.3 D RBC 5.14 Hgb 13.9 Hct 42.1 MCV 81.9 MCH 27.0 MCHC 33.0 RDW 13.1 Plt Count 330 MPV 9.5 Sodium 141 Potassium 3.8 Chloride 105 Carbon Dioxide 24 Anion Gap 15 BUN 9 Creatinine 0.7 Est GFR ( Amer) > 60 Est GFR (Non-Af Amer) > 60 Random Glucose 114 H Calcium 9.4 Total Bilirubin 0.6 AST 24 ALT 18 Alkaline Phosphatase 87 Total Protein 8.1 Albumin 4.4 Globulin 3.7 Albumin/Globulin Ratio 1.2 Assessment & Plan - Assessment and Plan (Free Text) Assessment: 48 yo Citizen Of [place] female presenting with abd pain found to have severe constipation, p ossible colitis vs underlying mass and liver lesion (possible met) # Abd Pain: Due to severe constipation with large stool burden on CT. Passing gas, but no significant BM post enemas and miralax. # Possible neoplastic lesion: Seen on CT in descending colon/sigmoid junction. No prior CSPY. # Liver lesion: Met vs other Plan: - Nulytely prep, can slowly ingested over next 24-48 hrs - Alternating Mineral Oil and Tap Water Enemas - Supportive care - Will likely need Colonoscopic evaluation pending course Pt seen and examined with Dr. Prado. Please see attestation for further recs/changes. <Susi Prado - Last Filed: 12/02/18 14:00> Meds - Medications Medications: Current Medications Lactated Ringer's (Lactated Ringer's) 1,000 mls @ 125 mls/hr IV .Q8H [facility] Last Admin: 12/02/18 12:16 Dose: 125 mls/hr Ketorolac Tromethamine (Toradol) 15 mg IVP Q6 PRN PRN Reason: Pain, moderate (4-7) Last Admin: 12/02/18 06:46 Dose: 15 mg Mineral Oil (Fleet Mineral Oil Enema) 135 ml RC DAILY [facility] Last Admin: 12/02/18 11:05 Dose: 135 ml Ondansetron HCl (Zofran Inj) 4 mg IVP Q6H PRN PRN Reason: Nausea/Vomiting Last Admin: 12/02/18 06:47 Dose: 4 mg Results - Vital Signs Recent Vital Signs: Last Vital Signs Temp 98.6 F 12/02/18 07:00 Pulse 87 12/02/18 07:00 Resp 18 12/02/18 07:00 BP 127/80 12/02/18 07:00 Pulse Ox 98 12/02/18 07:00 - Labs Result Diagrams: 12/02/18 07:00 12/02/18 07:00 Labs: Laboratory Results - last 24 hr 12/02/18 12/02/18 07:00 07:00 WBC 7.3 D RBC 5.14 Hgb 13.9 Hct 42.1 MCV 81.9 MCH 27.0 MCHC 33.0 RDW 13.1 Plt Count 330 MPV 9.5 Sodium 141 Potassium 3.8 Chloride 105 Carbon Dioxide 24 Anion Gap 15 BUN 9 Creatinine 0.7 Est GFR ( Amer) > 60 Est GFR (Non-Af Amer) > 60 Random Glucose 114 H Calcium 9.4 Total Bilirubin 0.6 AST 24 ALT 18 Alkaline Phosphatase 87 Total Protein 8.1 Albumin 4.4 Globulin 3.7 Albumin/Globulin Ratio 1.2 Attending/Attestation - Attestation I have personally seen and examined this patient.: Yes I have fully participated in the care of the patient.: Yes I have reviewed all pertinent clinical information: Yes Notes (Text): 12/02/18 13:49 I have seen and examined the pt with thet GI fellow. 48 yo Citizen Of [place] speaking F with h/o benign thyroid mass and intermittent constipation who p/w generalized abdominal pain x 1 wk found to have significant amount of stool throughout the e ntire colon, with an area of mural thickening at the sigmoid/descending colon (r/o underlying neoplasm) and 11 mm hypodense liver lesion, suspicious for mets. Pt has received Miralax and multiple enemas thus far with very minimal stool. Had some in the ER, but none over the past 24 hrs. Denies any flatulence or belching. No family h/o CRC or colon polyps. Has never had endoscopy. Hypoactive bowel sounds. Mildly distended and tender. Ideally, pt should have colonoscopy during this hospitalization to assess the area of question. Will have her take Golytely prep as tolerated as she has a significant amount of stool throughout the R colon (goal is to relieve constipation rather than a true colonoscopy prep). Alternating tap water and Fleet's enema bid. Can decrease to once daily if no significant output (not much stool present distally). This may also stimulate GI motility. Encourage ambu lation. If with no continued output or worsening abdominal distention, would consider surgical consult as she may have a large bowel obstruction 2/2 underlying neoplasm. Ok for clear liquid diet.
--- NOTE | 2018-12-02 15:10 | CP.PCM.PN ---
<Nicholas Rubio - Last Filed: 12/02/18 15:11> Subjective - Date & Time of Evaluation Date of Evaluation: 12/02/18 Time of Evaluation: 09:00 - Subjective Subjective: Nicholas Rubio DO PGY1 - Medicine Progress Note Pt. seen and examined at bedside this AM; Spanish video spanish interpreter used. Overnight patient continued to have constipation and worsening abdominal pain. Patient also had episodes of N/V last night as well; all of these symptoms were post dinner yesterday. Upon evaluation today she continues to admit to constipation and abd pain. No complaints of chest pain, sob, urinary discomfort endorsed. Findings of CTAP and plan moving forward discussed at length w/ patient. Of note patient denies any family history of malignancy. Objective - Vital Signs/Intake and Output Vital Signs (last 24 hours): Temp Pulse Resp BP Pulse Ox 98.6 F 87 18 127/80 98 12/02/18 07:00 12/02/18 07:00 12/02/18 07:00 12/02/18 07:00 12/02/18 07:00 Intake and Output: 12/02/18 12/02/18 06:59 18:59 Intake Total 800 0 Balance 800 0 - Medications Medications: Current Medications Lactated Ringer's (Lactated Ringer's) 1,000 mls @ 125 mls/hr IV .Q8H [facility] Last Admin: 12/02/18 12:16 Dose: 125 mls/hr Mineral Oil (Fleet Mineral Oil Enema) 135 ml RC DAILY [facility] Last Admin: 12/02/18 11:05 Dose: 135 ml Ondansetron HCl (Zofran Inj) 4 mg IVP Q6H PRN PRN Reason: Nausea/Vomiting Last Admin: 12/02/18 15:00 Dose: 4 mg Tramadol HCl (Ultram) 50 mg PO TID PRN PRN Reason: Pain, severe (8-10) - Labs Labs: 12/02/18 07:00 12/02/18 07:00 - Constitutional Appears: No Acute Distress, Other (In moderate discomfort however in less discomfort than day prior. ) - Head Exam Head Exam: ATRAUMATIC, NORMOCEPHALIC - Eye Exam Eye Exam: EOMI, Normal appearance, PERRL - Respiratory Exam Respiratory Exam: Clear to Ausculation Bilateral, NORMAL BREATHING PATTERN - Cardiovascular Exam Cardiovascular Exam: RRR - GI/Abdominal Exam GI & Abdominal Exam: Soft, Tenderness Additional comments: Distended, tympanic, normoactive bowel sounds - Extremities Exam Extremities Exam: Normal Capillary Refill. absent: Pedal Edema - Neurological Exam Neurological Exam: Alert, Oriented x3 - Psychiatric Exam Psychiatric exam: Normal Affect, Normal Mood - Skin Skin Exam: Dry, Intact, Warm Assessment and Plan - Assessment and Plan (Free Text) Assessment: 48F w/ PMH thyroid mass presented to [facility] ED on 12/01 w/ CC of diffuse abdominal pain and constipation x2 days. Plan: Severe Constipation - Etiolgoies include Chronic constipation vs Colitis vs Neoplastic Lesion 12/01 0016 - CTAP w/ IV/PO Contrast - 11mm liver hypodensity not seen in 2018 study; Moderate constipation in the right side of the colon, focal area of mural thickening in descending and sigmoid colon- colitis vs neoplastic lesion Patient has been tried on miralax, colace, lactulose, tap water enema, mineral oil enema, and fleet enemas She has not had a significant bowel movement to date Pain not well controlled w/ toradol 12/01 1621 - Abd XR - No evidence of free air. Distension of colon presumably up to the level of the previously described focal area of mural thickening at the junction of the descending and sigmoid colon. Overnight Patient had worsening of abd pain after meals ; Patient was made NPO and Started on LR 125cc/hr As per GI will allow patient to have golytely (to relieve constipation) over next 24/48 hours; Alternating Fleet + Tap Water enemas Can start on CLD if patient is able tolerate PI DC Toradol; Start Tramadol 50mg TID PRN Severe pain Zofran Q6H PRN Nausea As per GI she will likely need a colonoscopy GI Following, Appreciate reccs Liver Lesion Will need further workup once stable from a GI standpoint GI Following, Appreciate reccs Patient was seen, examined, discussed w/ attending Dr. Comfort Rubio DO PGy1 - Internal Medicine Superintendent General <Comfort Rubio R - Last Filed: 12/02/18 17:22> Objective - Vital Signs/Intake and Output Vital Signs (last 24 hours): Temp Pulse Resp BP Pulse Ox 98.6 F 87 18 127/80 98 12/02/18 07:00 12/02/18 07:00 12/02/18 07:00 12/02/18 07:00 12/02/18 07:00 Intake and Output: 12/02/18 12/02/18 06:59 18:59 Intake Total 800 0 Balance 800 0 - Medications Medications: Current Medications Lactated Ringer's (Lactated Ringer's) 1,000 mls @ 125 mls/hr IV .Q8H [facility] Last Admin: 12/02/18 12:16 Dose: 125 mls/hr Mineral Oil (Fleet Mineral Oil Enema) 135 ml RC DAILY [facility] Last Admin: 12/02/18 11:05 Dose: 135 ml Ondansetron HCl (Zofran Inj) 4 mg IVP Q6H PRN PRN Reason: Nausea/Vomiting Last Admin: 12/02/18 15:00 Dose: 4 mg Tramadol HCl (Ultram) 50 mg PO TID PRN PRN Reason: Pain, severe (8-10) - Labs Labs: 12/02/18 07:00 12/02/18 07:00 Attending/Attestation - Attestation I have personally seen and examined this patient.: Yes I have fully participated in the care of the patient.: Yes I have reviewed all pertinent clinical information, including history, physical exam and plan: Yes Notes (Text): Patient seen and examined by me with resident at approximately 10AM on 12/02/18. Case including HPI, physical exam, and assessment and plan discussed with resident. Agree with above with following additions/corrections. Patient is a 48 year old Spanish Speaking female with past medical history sign ificant for benign thyroid mass s/p biopsy that presented to the emergency room with abdominal pain and constipation. Spanish sports team marketing intern Emanuel ID #[email or web address] used for translation. Patient states she feels a little better with pain medication but has abdominal pain when pain medication wears off. Abdominal pain is bandlike across abdomen. Patient has associated nausea. No chest pain or shortness of breath. No dysuria. No fevers or chills. No headaches or dizziness. Physical exam: General: Awake and alert sitting up in chair in no acute distress HEENT: Normocephalic, atraumatic. Extraocular muscles intact. Pupils equal and reactive, no scleral icterus. Oropharynx is pink and moist. No pharyngeal er ythema or exudate appreciated. Neck is supple. Cardiovascular: Normal rhythm. Normal S1 and S2. No murmurs, rubs, or gallops appreciated Pulmonary: Normal respiratory effort. No rhonchi, rales, or wheezing appreciated. Gastrointestinal: Soft. Mild distention. Generalized tenderness. Hypoactive kraig l sounds all 4 quadrants. No guarding. Musculoskeletal: Moves all extremities. No calf tenderness. No edema appreciated Central nervous system: AAO X 3. CN 2-12 grossly intact. Dermatologic: Skin warm and dry. Assessment and plan: Patient is a 48 year old Spanish Speaking female with past medical history significant for benign thyroid mass s/p biopsy that presented to the emergency room with abdominal pain and constipation. 1. Abdominal pain secondary to constipation. CT abd/pelvis per radiologist showed 11mm hypodense lesion in the right lobe of the liver which measures 50 Hounsfield units in density; this was not present on the previous study; this could represent a metastatic lesion; there is moderate to severe constipation especially in the right side of the colon; there is a focal area of mural thickening at the junction of the descending colon and sigmoid colon. Rule out neoplastic lesion. Abdominal xray per radiologist showed no evidence of free air, distention of colon presumably up to the level of the previously described focal area of mural thickening at the junction of the descending and sigmoid colon. GI recommendations appreciated. Still with constipation after enemas and miralax. Patient getting go-lytely. Can give alternating tap and fleet enemas. Surgery consult tomorrow if constipation does not resolve. Patient will likely need colonscopy this hospital stay. 2. Nausea. Zofran prn 3. Hypokalemia. Resolved. Continue to monitor 4. History of thyroid mass. S/p biopsy previously which was benign. Case was discussed in detail with the patient regarding current diagnosis, study results, and treatment plan. All questions answered.
[2018-12-03] MEDS: Lactated Ringer's 1,000 ML IV SCH ×3 (03:08→21:01)
[2018-12-03 08:09] LABS: HEMOGLOBIN 13.4 g/dL (12.0-16.0); MEAN CELL VOLUME 81.7 fl (80.0-105.0); MEAN CORPUSCULAR HEMOGLOBIN 26.6 pg (25.0-35.0); MEAN CORPUSCULAR HGB CONC 32.5 g/dl (31.0-37.0); MEAN PLATELET VOLUME 9.5 fl (7.0-11.0); RBC 5.04 10^6/uL (3.5-6.1); RED CELL DISTRIBUTION WIDTH 13.1 % (11.5-14.5); WHITE BLOOD COUNT 7.2 10^3/uL (4.5-11.0)
[2018-12-03 08:24] LABS: ALB/GLOB RATIO 1.2 (1.1-1.8); ALT/SGPT 16 U/L (7-56); AST/SGOT 24 U/L (14-36); BLOOD UREA NITROGEN 12 mg/dL (7-21); GFR NON-AFRICAN AMERICAN > 60
[2018-12-03] MEDS ORDERED: Potassium Chloride 40 mEq/30 ml LIQ UD PO ONE (08:58)
[2018-12-03] MEDS ORDERED: Multivitamin (MVI) 10 ML in Dextrose 5% In Water 1,000 ML IV ONE (09:12)
--- NOTE | 2018-12-03 10:26 | CP.PCM.CON ---
<Jony Vallejo - Last Filed: 12/03/18 10:22> History of Present Illness - History of Present Illness History of Present Illness: General Surgery Re: Constipation vs obstruction 48F presented to ED with progressive abdominal pain x 2 days. Pt has worsening, diffuse abd pain. No precipitating or alleviating factors associated with the pain. Her last bowel movement was small yesterday after the enemas, otherwise her last normal BM was Tuesday. States she has had issues with constipation the last few months and has had ~5 lbs unintentional weight loss over that time. Denies fever, chills, chest pain, SOB, dysphagia, melena, hematochezia, dysuria, hematuria. Reports she had nausea and small clear emesis yesterday after drinking golytely. No prior colonoscopy. PMH: Denies PSH: thyroid biopsy (benign) FH: No family history of cancer SH: No tobacco, EtOH, or drug use All: NKDA Medications: See MAR Review of Systems - Review of Systems All systems: reviewed and no additional remarkable complaints except (as per HPI) Past Patient History - Infectious Disease Hx of Infectious Diseases: None - Tetanus Immunizations Tetanus Immunization: Unknown - Past Social History Smoking Status: Never Smoked - CARDIAC Hx Cardiac Disorders: No - PULMONARY Hx Respiratory Disorders: No - NEUROLOGICAL Hx Neurological Disorder: No - HEENT Hx HEENT Problems: No - RENAL Hx Chronic Kidney Disease: No - ENDOCRINE/METABOLIC Hx Endocrine Disorders: Yes Other/Comment: THYROID MASS - HEMATOLOGICAL/ONCOLOGICAL Hx Blood Disorders: No - INTEGUMENTARY Hx Dermatological Problems: No - MUSCULOSKELETAL/RHEUMATOLOGICAL Hx Musculoskeletal Disorders: No - GASTROINTESTINAL Hx Gastrointestinal Disorders: No - GENITOURINARY/GYNECOLOGICAL Hx Genitourinary Disorders: No - PSYCHIATRIC Hx Psychophysiologic Disorder: No - SURGICAL HISTORY Hx Surgeries: No - ANESTHESIA Hx Anesthesia Reactions: No Hx Malignant Hyperthermia: No Meds Allergies/Adverse Reactions: Allergies Allergy/AdvReac Type Severity Reaction Status Date / Time No Known Allergies Allergy Verified 12/01/18 00:02 - Medications Medications: Current Medications Lactated Ringer's (Lactated Ringer's) 1,000 mls @ 125 mls/hr IV .Q8H [facility] Last Admin: 12/03/18 03:08 Dose: 125 mls/hr Potassium Chloride (Potassium Chloride 10 Meq/100 Ml) 10 meq in 100 mls @ 100 mls/hr IVPB Q2H [facility] Stop: 12/03/18 14:14 Last Admin: 12/03/18 10:10 Dose: 100 mls/hr Multivitamins/Vitamin C 10 ml/ (Dextrose) 1,010 mls @ 100 mls/hr IV ONCE ONE Stop: 12/03/18 19:17 Last Admin: 12/03/18 10:11 Dose: 100 mls/hr Ketorolac Tromethamine (Toradol) 15 mg IVP Q6H PRN PRN Reason: Pain, moderate (4-7) Stop: 12/06/18 22:16 Mineral Oil (Fleet Mineral Oil Enema) 135 ml RC DAILY [facility] Last Admin: 12/02/18 11:05 Dose: 135 ml Ondansetron HCl (Zofran Inj) 4 mg IVP Q6H PRN PRN Reason: Nausea/Vomiting Last Admin: 12/03/18 08:50 Dose: 4 mg Tramadol HCl (Ultram) 50 mg PO TID PRN PRN Reason: Pain, severe (8-10) Physical Exam - Constitutional Appears: Non-toxic, No Acute Distress - Head Exam Head Exam: ATRAUMATIC, NORMOCEPHALIC - Eye Exam Eye Exam: EOMI. absent: Scleral icterus - ENT Exam ENT Exam: Mucous Membranes Dry Additional comments: trachea midline - Neck Exam Neck exam: Positive for: Full Rom. Negative for: Lymphadenopathy - Respiratory Exam Respiratory Exam: NORMAL BREATHING PATTERN. absent: Respiratory Distress - Cardiovascular Exam Cardiovascular Exam: RRR. absent: Bradycardia, Tachycardia - GI/Abdominal Exam GI & Abdominal Exam: Distended (mild), Hernia (umbilical), Soft, Tenderness (mostly in periumbilical/suprapubic region). absent: Firm, Guarding, Rebound, Rigid - Rectal Exam Rectal Exam: Deferred (pt declined) - Extremities Exam Extremities exam: Positive for: normal capillary refill, pedal pulses present. Negative for: calf tenderness - Back Exam Back exam: absent: CVA tenderness (L), CVA tenderness (R) - Neurological Exam Neurological exam: Alert, Oriented x3 - Skin Skin Exam: Dry, Warm Results - Vital Signs Recent Vital Signs: Last Vital Signs Temp 98.6 F 12/03/18 04:00 Pulse 87 12/03/18 04:00 Resp 20 12/03/18 04:00 BP 148/90 12/03/18 04:00 Pulse Ox 98 12/03/18 04:00 - Labs Result Diagrams: 12/03/18 07:00 12/03/18 07:00 Labs: Laboratory Results - last 24 hr 12/03/18 12/03/18 07:00 07:00 WBC 7.2 RBC 5.04 Hgb 13.4 Hct 41.2 MCV 81.7 MCH 26.6 MCHC 32.5 RDW 13.1 Plt Count 307 MPV 9.5 Sodium 137 Potassium 3.3 L Chloride 102 Carbon Dioxide 25 Anion Gap 13 BUN 12 Creatinine 0.7 Est GFR ( Amer) > 60 Est GFR (Non-Af Amer) > 60 Random Glucose 97 Calcium 9.0 Total Bilirubin 0.6 AST 24 ALT 16 Alkaline Phosphatase 73 Total Protein 7.3 Albumin 4.0 Globulin 3.3 Albumin/Globulin Ratio 1.2 - Imaging and Cardiology CT scan - abdomen Status: Image reviewed by me, Report reviewed by me Abdominal x-ray Status: Image reviewed by me (x2) Assessment & Plan - Assessment and Plan (Free Text) Assessment: 48F with constipation vs descending/sigmoid mass Plan: Most recent Abd XR shows stool in descending colon near area of thickening. NPO except meds IVF Pain control PRN Monitor for BM/flatus Can continue enemas per GI F/U GI plan, possible colonoscopy. Ambulate as able AM labs and Abd XR Will D/W Dr. Adam Vallejo PGY4 <Kiran Medina - Last Filed: 12/06/18 19:08> Meds - Medications Medications: Current Medications Benzocaine/Menthol (Cepacol Sore Throat) 1 amy MT Q2H PRN PRN Reason: Sore Throat Last Admin: 12/05/18 15:21 Dose: 1 amy Heparin Sodium (Porcine) (Heparin) 5,000 units SC Q8 [facility]; Protocol Last Admin: 12/06/18 15:05 Dose: 5,000 units Ketorolac Tromethamine (Toradol) 15 mg IVP Q6H [facility] Last Admin: 12/06/18 16:20 Dose: 15 mg Morphine Sulfate (Morphine) 4 mg IVP Q4H PRN PRN Reason: Pain, moderate (4-7) Last Admin: 12/06/18 04:53 Dose: 4 mg Ondansetron HCl (Zofran Inj) 4 mg IVP Q6H PRN PRN Reason: Nausea/Vomiting Last Admin: 12/04/18 13:34 Dose: 4 mg Pantoprazole Sodium (Protonix Ec Tab) 40 mg PO 0600 [facility] Last Admin: 12/06/18 04:59 Dose: 40 mg Results - Vital Signs Recent Vital Signs: Last Vital Signs Temp 99.9 F H 12/06/18 08:08 Pulse 82 12/06/18 16:08 Resp 18 12/06/18 16:08 BP 103/67 12/06/18 16:08 Pulse Ox 96 12/06/18 16:08 - Labs Result Diagrams: 12/06/18 06:00 12/06/18 06:00 Labs: Laboratory Results - last 24 hr 12/06/18 12/06/18 12/06/18 06:00 06:00 08:34 WBC 6.1 D RBC 3.56 Hgb 9.4 L D Hct 29.6 L MCV 83.1 MCH 26.4 MCHC 31.8 RDW 13.2 Plt Count 202 MPV 9.5 Neut % (Auto) 67.5 Lymph % (Auto) 24.0 [place] % (Auto) 6.9 H Eos % (Auto) 1.3 L Baso % (Auto) 0.3 Lymph # (Auto) 1.5 [place] # (Auto) 0.4 Eos # (Auto) 0.1 Baso # (Auto) 0.02 Absolute Neuts (auto) 4.14 Sodium 136 Potassium 3.1 L Chloride 107 Carbon Dioxide 27 Anion Gap 6 L BUN 18 Creatinine 0.7 Est GFR ( Amer) > 60 Est GFR (Non-Af Amer) > 60 Random Glucose 102 Calcium 7.8 L Total Bilirubin 0.2 AST 30 ALT 20 Alkaline Phosphatase 44 Total Protein 4.9 L Albumin 2.5 L Globulin 2.4 Albumin/Globulin Ratio 1.0 L Carcinoembryonic Ag 2.7 Assessment & Plan - Assessment and Plan (Free Text) Plan: Patient was seen, evaluated and examined by me at the bedside. I agree with assessment and plan as stated in the resident's note.
[2018-12-03] MEDS: Mineral Oil Enema 135 ml RC SCH (11:16)
--- NOTE | 2018-12-03 11:29 | RAD ---
Date of service: 12/03/2018 HISTORY: abdominal pain COMPARISON: No prior. TECHNIQUE: 1 view obtained. FINDINGS: LUNGS: No active pulmonary disease. PLEURA: No significant pleural effusion identified, no pneumothorax apparent. CARDIOVASCULAR: No aortic atherosclerotic calcification present. Normal cardiac size. No pulmonary vascular congestion. OSSEOUS STRUCTURES: No significant abnormalities. VISUALIZED UPPER ABDOMEN: Normal. OTHER FINDINGS: None. IMPRESSION: No active disease.
--- NOTE | 2018-12-03 11:30 | RAD ---
Date of service: 12/03/2018 HISTORY: R/o obstruction COMPARISON: Abdominal radiographs dated 12/01/2018. TECHNIQUE: 1 view obtained. FINDINGS: BOWEL: Enteric contrast in the colon. Distension of colon presumably up to the level of the previously described focal area of mural thickening at the junction of the descending and sigmoid colon. BONES: Normal. OTHER FINDINGS: None. IMPRESSION: No evidence of free air. Distension of colon presumably up to the level of the previously described focal area of mural thickening at the junction of the descending and sigmoid colon.
--- NOTE | 2018-12-03 12:24 | CP.PCM.PN ---
<Karen Adams - Last Filed: 12/03/18 12:19> Subjective - Date & Time of Evaluation Date of Evaluation: 12/03/18 Time of Evaluation: 09:15 - Subjective Subjective: Karen Adams Y1 Hospital Progress Note Patient seen and examined at bedside this morning. No acute events reported overnight. 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 Patient denies flatus and BM today. She admits to fatigua, nausea and constipation and denies CP, SOB, vomiting, fevers, headaches, urinary complaints and chills. Patient encouraged to drink golytely and uses enemas. Plan for inpatient colonoscopy this week. Surgery consult ordered today. Objective - Vital Signs/Intake and Output Vital Signs (last 24 hours): Temp Pulse Resp BP Pulse Ox 98.6 F 87 20 148/90 98 12/03/18 04:00 12/03/18 04:00 12/03/18 04:00 12/03/18 04:00 12/03/18 04:00 Intake and Output: 12/03/18 12/03/18 06:59 18:59 Intake Total 2620 Balance 2620 - Medications Medications: Current Medications Lactated Ringer's (Lactated Ringer's) 1,000 mls @ 125 mls/hr IV .Q8H [facility] Last Admin: 12/03/18 03:08 Dose: 125 mls/hr Potassium Chloride (Potassium Chloride 10 Meq/100 Ml) 10 meq in 100 mls @ 100 mls/hr IVPB Q2H [facility] Stop: 12/03/18 14:14 Last Admin: 12/03/18 12:17 Dose: 100 mls/hr Multivitamins/Vitamin C 10 ml/ (Dextrose) 1,010 mls @ 100 mls/hr IV ONCE ONE Stop: 12/03/18 19:17 Last Admin: 12/03/18 10:11 Dose: 100 mls/hr Ketorolac Tromethamine (Toradol) 15 mg IVP Q6H PRN PRN Reason: Pain, moderate (4-7) Stop: 12/06/18 22:16 Mineral Oil (Fleet Mineral Oil Enema) 135 ml RC DAILY [facility] Last Admin: 12/03/18 11:16 Dose: 135 ml Ondansetron HCl (Zofran Inj) 4 mg IVP Q6H PRN PRN Reason: Nausea/Vomiting Last Admin: 12/03/18 08:50 Dose: 4 mg Tramadol HCl (Ultram) 50 mg PO TID PRN PRN Reason: Pain, severe (8-10) - Labs Labs: 12/03/18 07:00 12/03/18 07:00 - Constitutional Appears: No Acute Distress - Head Exam Head Exam: ATRAUMATIC, NORMOCEPHALIC - Eye Exam Eye Exam: EOMI, Normal appearance, PERRL - Respiratory Exam Respiratory Exam: Clear to Ausculation Bilateral, NORMAL BREATHING PATTERN - Cardiovascular Exam Cardiovascular Exam: RRR absent: tachycardia - GI/Abdominal Exam GI & Abdominal Exam: Soft, Tenderness present absent: rigidity, rebound Additional comments: distended abdomen, bowel sounds appreciated in all 4 quadrants - Extremities Exam Extremities Exam: Normal Capillary Refill. DP +2 B/L absent: Pedal Edema, calf tenderness - Neurological Exam Neurological Exam: Alert, Oriented x3 - Psychiatric Exam Psychiatric exam: Normal Affect, Normal Mood - Skin Skin Exam: Dry, Intact, Warm Assessment and Plan - Assessment and Plan (Free Text) Assessment: 48F w/ PMH thyroid mass presented to [facility] ED on 12/01 with complaints of diffuse abdominal pain and constipation x2 days. Plan for inpatient colonoscopy this week due to lack of insurance. Patient encouraged to use golyely and enemas. Surgery on consult. Plan: Abdominal pain 2/2 consitpation in the setting of colon mass -12/01 CTAP revealed moderate constipation in the right side of the colon, focal area of mural thickening in descending and sigmoid colon- colitis vs neoplastic lesion. -12/01 abd xray revealed no evidence of free air. Distension of colon presumably up to the level of the previously described focal area of mural thickening at the junction of the descending and sigmoid colon. -patient encouraged to try golytely, enemas -zofran prn ordered for nausea -toradol prn, tramadol for pain - patient currently refusing pain medications -continue IVF -Surgery on consult, NPO for now -GI on consult Liver Hypodensity -12/01 CTAP revealed 11mm liver hypodensity not seen in 2018 study -patient to follow up outpatient once medically clear -GI on consult Hypokalemia -repleted, monitor PPX -SCD -NPO for now as per surgery recommendations Patient seen and case discussed with attending, Dr. De Los Santos <Crys De Los Santos - Last Filed: 12/03/18 15:25> Objective - Vital Signs/Intake and Output Vital Signs (last 24 hours): Temp Pulse Resp BP Pulse Ox 98.6 F 87 20 148/90 98 12/03/18 04:00 12/03/18 04:00 12/03/18 04:00 12/03/18 04:00 12/03/18 04:00 Intake and Output: 12/03/18 12/03/18 06:59 18:59 Intake Total 2620 Balance 2620 - Medications Medications: Current Medications Lactated Ringer's (Lactated Ringer's) 1,000 mls @ 125 mls/hr IV .Q8H [facility] Last Admin: 12/03/18 13:08 Dose: Not Given Multivitamins/Vitamin C 10 ml/ (Dextrose) 1,010 mls @ 100 mls/hr IV ONCE ONE Stop: 12/03/18 19:17 Last Admin: 12/03/18 10:11 Dose: 100 mls/hr Ketorolac Tromethamine (Toradol) 15 mg IVP Q6H PRN PRN Reason: Pain, moderate (4-7) Stop: 12/06/18 22:16 Mineral Oil (Fleet Mineral Oil Enema) 135 ml RC DAILY [facility] Last Admin: 12/03/18 11:16 Dose: 135 ml Ondansetron HCl (Zofran Inj) 4 mg IVP Q6H PRN PRN Reason: Nausea/Vomiting Last Admin: 12/03/18 14:50 Dose: 4 mg Tramadol HCl (Ultram) 50 mg PO TID PRN PRN Reason: Pain, severe (8-10) - Labs Labs: 12/03/18 07:00 12/03/18 07:00 Attending/Attestation - Attestation I have personally seen and examined this patient.: Yes I have fully participated in the care of the patient.: Yes I have reviewed all pertinent clinical information, including history, physical exam and plan: Yes Notes (Text): 12/03/18 15:21 Attending note; Patient seen and examined with resident. Translation used. Patient has been by the bedside. Patient is complaining of nausea with p.o. GoLYTELY ingestion. Patient had enema yesterday. No significant bowel movement. Patient passed gas. Patient is a 48 year old Mauritian Speaking female with past medical history significant for benign thyroid mass s/p biopsy that presented to the emergency room with abdominal pain and constipation. 1. Abdominal pain secondary to constipation. CT abd/pelvis showed 11mm hypodense lesion in the right lobe of the liver which measures 50 Hounsfield units in density could represent a metastatic lesion; there is moderate to severe constipation especially in the right side of the colon; there is a focal area of mural thickening at the junction of the descending colon and sigmoid colon. Patient had enema yesterday with no significant bowel movement. Currently advised to drink GoLYTELY. Ambulating in the hallway. Advised to take Zofran before taking GoLYTELY. Repeat abdominal xray showed no evidence of free air, distention of colon presumably up to the level of the previously described focal area of mural thickening at the junction of the descending and sigmoid colon. Patient was evaluated by GI today. Continue mineral water edema and GoLYTELY. Possible colonoscopy in few days. 2. Abdominal pain; currently no bowel obstruction noted due to significant constipation. No free air. surgery evaluation appreciated. Monitor closely. 3. Nausea; continue Zofran prn 4. History of thyroid mass. S/p biopsy previously which was benign. Monitor closely for bowel movement. 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
[2018-12-03] MEDS ORDERED: Potassium Chloride 20 mEq/15 ml LIQ UD PO ONE (13:00)
--- NOTE | 2018-12-03 13:01 | CP.PCM.PN ---
<Germán De Jesus - Last Filed: 12/03/18 12:58> Subjective - Date & Time of Evaluation Date of Evaluation: 12/03/18 Time of Evaluation: 12:15 - Subjective Subjective: PGY-4 GI Fellow Prog Note Pt lying in bed when seen. Abd pain and distension slightly less. States small bowel movement. Some nausea with nulytely. 5 point ROS negative other than states above Objective - Vital Signs/Intake and Output Vital Signs (last 24 hours): Temp Pulse Resp BP Pulse Ox 98.6 F 87 20 148/90 98 12/03/18 04:00 12/03/18 04:00 12/03/18 04:00 12/03/18 04:00 12/03/18 04:00 Intake and Output: 12/03/18 12/03/18 06:59 18:59 Intake Total 2620 Balance 2620 - Medications Medications: Current Medications Lactated Ringer's (Lactated Ringer's) 1,000 mls @ 125 mls/hr IV .Q8H [facility] Last Admin: 12/03/18 03:08 Dose: 125 mls/hr Potassium Chloride (Potassium Chloride 10 Meq/100 Ml) 10 meq in 100 mls @ 100 mls/hr IVPB Q2H [facility] Stop: 12/03/18 14:14 Last Admin: 12/03/18 12:17 Dose: 100 mls/hr Multivitamins/Vitamin C 10 ml/ (Dextrose) 1,010 mls @ 100 mls/hr IV ONCE ONE Stop: 12/03/18 19:17 Last Admin: 12/03/18 10:11 Dose: 100 mls/hr Ketorolac Tromethamine (Toradol) 15 mg IVP Q6H PRN PRN Reason: Pain, moderate (4-7) Stop: 12/06/18 22:16 Mineral Oil (Fleet Mineral Oil Enema) 135 ml RC DAILY [facility] Last Admin: 12/03/18 11:16 Dose: 135 ml Ondansetron HCl (Zofran Inj) 4 mg IVP Q6H PRN PRN Reason: Nausea/Vomiting Last Admin: 12/03/18 08:50 Dose: 4 mg Tramadol HCl (Ultram) 50 mg PO TID PRN PRN Reason: Pain, severe (8-10) - Labs Labs: 12/03/18 07:00 12/03/18 07:00 - Constitutional Appears: Well, No Acute Distress - Head Exam Head Exam: ATRAUMATIC, NORMAL INSPECTION - Eye Exam Eye Exam: EOMI. absent: Scleral icterus - ENT Exam ENT Exam: Mucous Membranes Moist. absent: Mucous Membranes Dry - Respiratory Exam Respiratory Exam: NORMAL BREATHING PATTERN. absent: Accessory Muscle Use - GI/Abdominal Exam GI & Abdominal Exam: Distended (mildly, but less than prior), Soft, Tenderness (mildly diffusely ttp w/o guarding), Normal Bowel Sounds (some high pitch). absent: Bruit, Firm, Guarding, Rigid Assessment and Plan - Assessment and Plan (Free Text) Assessment: 48 yo Turkish female presenting with abd pain found to have severe constipation, possible colitis vs underlying mass and liver lesion (possible met) # Abd Pain: Due to severe constipation with large stool burden on CT. Passing gas, but no significant BM post enemas and miralax. # Possible neoplastic lesion: Seen on CT in descending colon/sigmoid junction. No prior CSPY. # Liver lesion: Met vs other Plan: - Nulytely prep, counseled pt to complete today - Mineral oil enema daily - DC tap water enema - Supportive care - Will likely plan for CSPY if able to clean out - Gen surg on consult Pt seen and examined with Dr. Prado. Please see attestation for further recs/changes. <Susi Prado - Last Filed: 12/03/18 15:19> Objective - Vital Signs/Intake and Output Vital Signs (last 24 hours): Temp Pulse Resp BP Pulse Ox 98.6 F 87 20 148/90 98 12/03/18 04:00 12/03/18 04:00 12/03/18 04:00 12/03/18 04:00 12/03/18 04:00 Intake and Output: 12/03/18 12/03/18 06:59 18:59 Intake Total 2620 Balance 2620 - Medications Medications: Current Medications Lactated Ringer's (Lactated Ringer's) 1,000 mls @ 125 mls/hr IV .Q8H [facility] Last Admin: 12/03/18 13:08 Dose: Not Given Multivitamins/Vitamin C 10 ml/ (Dextrose) 1,010 mls @ 100 mls/hr IV ONCE ONE Stop: 12/03/18 19:17 Last Admin: 12/03/18 10:11 Dose: 100 mls/hr Ketorolac Tromethamine (Toradol) 15 mg IVP Q6H PRN PRN Reason: Pain, moderate (4-7) Stop: 12/06/18 22:16 Mineral Oil (Fleet Mineral Oil Enema) 135 ml RC DAILY [facility] Last Admin: 12/03/18 11:16 Dose: 135 ml Ondansetron HCl (Zofran Inj) 4 mg IVP Q6H PRN PRN Reason: Nausea/Vomiting Last Admin: 12/03/18 14:50 Dose: 4 mg Tramadol HCl (Ultram) 50 mg PO TID PRN PRN Reason: Pain, severe (8-10) - Labs Labs: 12/03/18 07:00 12/03/18 07:00 Attending/Attestation - Attestation I have personally seen and examined this patient.: Yes I have fully participated in the care of the patient.: Yes I have reviewed all pertinent clinical information, including history, physical exam and plan: Yes Notes (Text): 12/03/18 15:14 Pt seen and examined with the GI fellow. Drank 1/3 of Golytely with some BMs. Significant language barrier as nurse states pt has been passing gas without BMs and pt denies this, but states she did have some stool (used gear grinder). Abdomen seems softer today. Will have her continue Golytely to try to finish the bottle to see if she can empty out some more and have her record her stool output. Decrease to one tap water enema daily. Ok with clear liquids for now. Hopefully, will be able to do colonoscopy sometime next wk.
[2018-12-04] MEDS: Lactated Ringer's 1,000 ML IV SCH (05:26)
[2018-12-04 06:50] LABS: INR 1.13; PARTIAL THROMBOPLASTIN TIME 31.8 Seconds (26.9-38.3); PROTHROMBIN TIME 12.8 SECONDS (9.4-12.5)
[2018-12-04 07:48] LABS: ALB/GLOB RATIO 1.2 (1.1-1.8); ALT/SGPT 14 U/L (7-56); AST/SGOT 30 U/L (14-36); BLOOD UREA NITROGEN 15 mg/dL (7-21); CALCIUM 8.9 mg/dL (8.4-10.5); GFR NON-AFRICAN AMERICAN > 60
--- NOTE | 2018-12-04 07:49 | CP.PCM.PN ---
<Lm Nolan - Last Filed: 12/04/18 07:50> Subjective - Date & Time of Evaluation Date of Evaluation: 12/04/18 Time of Evaluation: 07:46 - Subjective Subjective: SURGERY NOTE FOR DR. MEDINA 48F seen and examined at bedside. Patient states pain is the same, states she had small amount of BMs earlier yesterday but stopped. Abdomen still distended. She has drank 3/4 of Go-lytely. Objective - Vital Signs/Intake and Output Vital Signs (last 24 hours): Temp Pulse Resp BP Pulse Ox 98.6 F 86 20 152/94 H 98 12/04/18 06:00 12/04/18 06:00 12/04/18 06:00 12/04/18 06:00 12/04/18 06:00 Intake and Output: 12/04/18 12/04/18 06:59 18:59 Intake Total 300 Balance 300 - Medications Medications: Current Medications Lactated Ringer's (Lactated Ringer's) 1,000 mls @ 125 mls/hr IV .Q8H [facility] Last Admin: 12/04/18 05:26 Dose: 125 mls/hr Ketorolac Tromethamine (Toradol) 15 mg IVP Q6H PRN PRN Reason: Pain, moderate (4-7) Stop: 12/06/18 22:16 Last Admin: 12/04/18 05:28 Dose: 15 mg Mineral Oil (Fleet Mineral Oil Enema) 135 ml RC DAILY [facility] Last Admin: 12/03/18 11:16 Dose: 135 ml Ondansetron HCl (Zofran Inj) 4 mg IVP Q6H PRN PRN Reason: Nausea/Vomiting Last Admin: 12/04/18 05:26 Dose: 4 mg Tramadol HCl (Ultram) 50 mg PO TID PRN PRN Reason: Pain, severe (8-10) - Labs Labs: 12/03/18 07:00 12/03/18 07:00 PT 12.8 SECONDS (9.4-12.5) H 12/04/18 06:00 INR 1.13 12/04/18 06:00 APTT 31.8 Seconds (26.9-38.3) 12/04/18 06:00 - Constitutional Appears: Non-toxic, No Acute Distress - Respiratory Exam Respiratory Exam: Clear to Ausculation Bilateral, NORMAL BREATHING PATTERN - Cardiovascular Exam Cardiovascular Exam: REGULAR RHYTHM, +S1, +S2 - GI/Abdominal Exam GI & Abdominal Exam: Distended, Soft, Tenderness. absent: Firm, Guarding, Rigid, Rebound - Extremities Exam Extremities Exam: absent: Pedal Edema, Tenderness - Neurological Exam Neurological Exam: Alert, Awake - Skin Skin Exam: Dry, Intact, Normal Color, Warm Assessment and Plan - Assessment and Plan (Free Text) Assessment: 48F presents with constipation and thickening of descending colon, colitis, vs mass Plan: - continue pain control - anti emetics - enemas/ go-lytely - recommend GI intervention, possible colonoscopy - serial abdominal exams Further recs discuss with Dr. Adam Nolan, PGY3 <Kiran Medina - Last Filed: 12/06/18 19:06> Objective - Vital Signs/Intake and Output Vital Signs (last 24 hours): Temp Pulse Resp BP Pulse Ox 99.9 F H 82 18 103/67 96 12/06/18 08:08 12/06/18 16:08 12/06/18 16:08 12/06/18 16:08 12/06/18 16:08 - Medications Medications: Current Medications Benzocaine/Menthol (Cepacol Sore Throat) 1 amy MT Q2H PRN PRN Reason: Sore Throat Last Admin: 12/05/18 15:21 Dose: 1 amy Heparin Sodium (Porcine) (Heparin) 5,000 units SC Q8 [facility]; Protocol Last Admin: 12/06/18 15:05 Dose: 5,000 units Ketorolac Tromethamine (Toradol) 15 mg IVP Q6H [facility] Last Admin: 12/06/18 16:20 Dose: 15 mg Morphine Sulfate (Morphine) 4 mg IVP Q4H PRN PRN Reason: Pain, moderate (4-7) Last Admin: 12/06/18 04:53 Dose: 4 mg Ondansetron HCl (Zofran Inj) 4 mg IVP Q6H PRN PRN Reason: Nausea/Vomiting Last Admin: 12/04/18 13:34 Dose: 4 mg Pantoprazole Sodium (Protonix Ec Tab) 40 mg PO 0600 [facility] Last Admin: 12/06/18 04:59 Dose: 40 mg - Labs Labs: 12/06/18 06:00 12/06/18 06:00 PT 12.8 SECONDS (9.4-12.5) H 12/04/18 06:00 INR 1.13 12/04/18 06:00 APTT 31.8 Seconds (26.9-38.3) 12/04/18 06:00 Assessment and Plan - Assessment and Plan (Free Text) Plan: Patient was seen, evaluated and examined by me at the bedside. I agree with assessment and plan as stated in the resident's note.We will proceed to the operating room if there is no bowel movement later on today.
--- NOTE | 2018-12-04 07:53 | CP.PCM.PN ---
<Nicholas Rubio - Last Filed: 12/04/18 14:22> Subjective - Date & Time of Evaluation Date of Evaluation: 12/04/18 Time of Evaluation: 07:52 - Subjective Subjective: Nicholas Rubio DO PGY1 - Internal Medicine Transportation Attendant - Medicine Progress Note Seen and examined this am; no acute events reported overnight tolerated golytely without N/V however still has complaints of diffuse abd pain. No BM reported Patient was advanced to CLD this AM however shortly after she complained of significant abdominal pain. Patient was evaluated by medicine team and GI this morning using Polish Lute Packer Or Applier service ([id number]) Patient's condition and plan moving forward were relayed to patient; Please note patient also expressed that she wished to only be spoken to via animation artist service. This was documented and communicated to all members of care team. Objective - Vital Signs/Intake and Output Vital Signs (last 24 hours): Temp Pulse Resp BP Pulse Ox 98.6 F 86 20 152/94 H 98 12/04/18 06:00 12/04/18 06:00 12/04/18 06:00 12/04/18 06:00 12/04/18 06:00 Intake and Output: 12/04/18 12/04/18 06:59 18:59 Intake Total 300 Balance 300 - Medications Medications: Current Medications Lactated Ringer's (Lactated Ringer's) 1,000 mls @ 125 mls/hr IV .Q8H [facility] Last Admin: 12/04/18 05:26 Dose: 125 mls/hr Ketorolac Tromethamine (Toradol) 15 mg IVP Q6H PRN PRN Reason: Pain, moderate (4-7) Stop: 12/06/18 22:16 Last Admin: 12/04/18 05:28 Dose: 15 mg Mineral Oil (Fleet Mineral Oil Enema) 135 ml RC DAILY [facility] Last Admin: 12/03/18 11:16 Dose: 135 ml Ondansetron HCl (Zofran Inj) 4 mg IVP Q6H PRN PRN Reason: Nausea/Vomiting Last Admin: 12/04/18 05:26 Dose: 4 mg Tramadol HCl (Ultram) 50 mg PO TID PRN PRN Reason: Pain, severe (8-10) - Labs Labs: 12/03/18 07:00 12/04/18 06:00 PT 12.8 SECONDS (9.4-12.5) H 12/04/18 06:00 INR 1.13 12/04/18 06:00 APTT 31.8 Seconds (26.9-38.3) 12/04/18 06:00 - Constitutional Appears: No Acute Distress - Head Exam Head Exam: ATRAUMATIC, NORMOCEPHALIC - Eye Exam Eye Exam: EOMI, PERRL. absent: Scleral icterus - Respiratory Exam Respiratory Exam: Clear to Ausculation Bilateral, NORMAL BREATHING PATTERN - Cardiovascular Exam Cardiovascular Exam: RRR. absent: Murmur - GI/Abdominal Exam GI & Abdominal Exam: Distended, Soft, Tenderness, Hyperactive Bowel Sounds. absent: Rigid - Neurological Exam Neurological Exam: Alert, Awake, Oriented x3 - Psychiatric Exam Psychiatric exam: Normal Affect, Normal Mood - Skin Skin Exam: Dry, Intact, Warm Assessment and Plan - Assessment and Plan (Free Text) Assessment: 48F w/ PMH thyroid mass presented to [facility] ED on 12/01 w/ CC of diffuse abdominal pain and constipation x2 days prior to arrival Plan: Severe Constipation - Mechanical Obstruction 2/2 Neoplastic Lesion however will need to confirm w/ colonoscopy - WORSENING 12/01 0016 - CTAP w/ IV/PO Contrast - 11mm liver hypodensity not seen in 2018 study; Moderate constipation in the right side of the colon, focal area of mural thickening in descending and sigmoid colon- colitis vs neoplastic lesion 12/01 1621 - Abd XR - No evidence of free air. Distension of colon presumably up to the level of the previously described focal area of mural thickening at the junction of the descending and sigmoid colon. 12/04 - CTAP w/o PO CON - Large bowel obstruction secondary to abrupt transition at the descending/sigmoid colon junction where there is an area of irregular thickening, neoplasm suspected. There is increasing concern for perforation at this time given that her symptoms are not improving on PO bowel regimen and enemas. We will continue to provide analgesic control w/ Zofran, Toradol, and Morphine Discontinue tramadol Patient will now be strict NPO Surgery is following, appreciate reccs - does not appear to be a OR candidate at this time ; Patient does not exhibit peritoneal findings GI Following, Appreciate reccs- she will need a colonoscopy to further evaluate questionable neoplasm; Hypokalemia - 2.9 Will continue to aggresively replete Recheck once K-Rideres are completed Mag wnl Liver Lesion Will need further workup once stable from a GI standpoint; GI Following, Appreciate reccs Patient was seen, examined, and discussed w/ attending Dr. Magali Rubio DO PGY1 - Internal Medicine Transportation Attendant - Medicine Progress Note <Crys De Los Santos - Last Filed: 12/05/18 14:01> Objective - Vital Signs/Intake and Output Vital Signs (last 24 hours): Temp Pulse Resp BP Pulse Ox 97.1 F L 74 18 93/58 L 97 12/05/18 08:12 12/05/18 08:12 12/05/18 08:12 12/05/18 08:12 12/05/18 08:12 Intake and Output: 12/05/18 12/05/18 06:59 18:59 Intake Total 900 Output Total 345 Balance 555 - Medications Medications: Current Medications Benzocaine/Menthol (Cepacol Sore Throat) 1 amy MT Q2H PRN PRN Reason: Sore Throat Heparin Sodium (Porcine) (Heparin) 5,000 units SC Q8 [facility]; Protocol Last Admin: 12/05/18 13:50 Dose: 5,000 units Lactated Ringer's (Lactated Ringer's) 1,000 mls @ 125 mls/hr IV .Q8H [facility] Last Admin: 12/05/18 08:07 Dose: 125 mls/hr Ketorolac Tromethamine (Toradol) 15 mg IVP Q6H [facility] Last Admin: 12/05/18 09:33 Dose: 15 mg Morphine Sulfate (Morphine) 4 mg IVP Q4H PRN PRN Reason: Pain, moderate (4-7) Last Admin: 12/05/18 04:03 Dose: 4 mg Ondansetron HCl (Zofran Inj) 4 mg IVP Q6H PRN PRN Reason: Nausea/Vomiting Last Admin: 12/04/18 13:34 Dose: 4 mg Pantoprazole Sodium (Protonix Ec Tab) 40 mg PO 0600 [facility] - Labs Labs: 12/05/18 05:30 12/05/18 05:30 PT 12.8 SECONDS (9.4-12.5) H 12/04/18 06:00 INR 1.13 12/04/18 06:00 APTT 31.8 Seconds (26.9-38.3) 05/27/19 06:00 Attending/Attestation - Attestation I have personally seen and examined this patient.: Yes I have fully participated in the care of the patient.: Yes I have reviewed all pertinent clinical information, including history, physical exam and plan: Yes Notes (Text): 12/05/18 13:57 Attending note; Patient seen and examined with resident. Translation used. Patient's by the bedside. Patient is complaining of increasing abdominal pain. Able to complete three fourth of GoLYTELY. Currently not able to tolerate any liquids. Patient was also examined with GI. Patient is a 48 year old Polish Speaking female with past medical history significant for benign thyroid mass s/p biopsy that presented to the emergency room with abdominal pain and constipation. 1. Abdominal pain secondary to constipation. CT abd/pelvis showed 11mm hypodense lesion in the right lobe of the liver which measures 50 Hounsfield units in density could represent a metastatic lesion; there is moderate to se masood constipation especially in the right side of the colon; there is a focal area of mural thickening at the junction of the descending colon and sigmoid colon. Currently with increasing abdominal pain. Not tolerating p.o. liquids. N.p.o.. Continue IV fluids. Stat CT abdomen and pelvis ordered. CT abdomen and pelvis showed large bowel obstruction and a transition point at the descending and sigmoid colon with sigmoid neoplasm suspected, also hepatic metastasis suspected. Case discussed with patient and patient's in detail. Case discussed with surgery in detail. Plan for OR today. 2. Abdominal pain; currently no bowel obstruction. Started on IV morphine. 3. Nausea; continue Zofran prn Diagnosis, treatment plan discussed with patient in detail via animation artist.
[2018-12-04] MEDS ORDERED: Potassium Chloride 40 mEq/30 ml LIQ UD PO ONE (08:02)
--- NOTE | 2018-12-04 09:11 | CP.PCM.PN ---
<Germán De Jesus - Last Filed: 12/04/18 10:01> Subjective - Date & Time of Evaluation Date of Evaluation: 12/04/18 Time of Evaluation: 08:00 - Subjective Subjective: PGY-4 GI Fellow Prog Note Pt lying in bed when seen this AM. Reports no BMs nor flatus ovenight. Drank about 80% of prep. Abd pain worse today. Balance Wheel Screw Hole Driller service and family friend at bedside helped communicate. 5 point ROS negative other than stated above Objective - Vital Signs/Intake and Output Vital Signs (last 24 hours): Temp Pulse Resp BP Pulse Ox 98.6 F 86 20 152/94 H 98 12/04/18 06:00 12/04/18 06:00 12/04/18 06:00 12/04/18 06:00 12/04/18 06:00 Intake and Output: 12/04/18 12/04/18 06:59 18:59 Intake Total 300 Balance 300 - Medications Medications: Current Medications Lactated Ringer's (Lactated Ringer's) 1,000 mls @ 125 mls/hr IV .Q8H [facility] Last Admin: 12/04/18 05:26 Dose: 125 mls/hr Potassium Chloride (Potassium Chloride 10 Meq/100 Ml) 10 meq in 100 mls @ 100 mls/hr IVPB Q2H [facility] Stop: 12/04/18 15:14 Ketorolac Tromethamine (Toradol) 15 mg IVP Q6H PRN PRN Reason: Pain, moderate (4-7) Stop: 12/06/18 22:16 Last Admin: 12/04/18 05:28 Dose: 15 mg Mineral Oil (Fleet Mineral Oil Enema) 135 ml RC DAILY [facility] Last Admin: 12/03/18 11:16 Dose: 135 ml Ondansetron HCl (Zofran Inj) 4 mg IVP Q6H PRN PRN Reason: Nausea/Vomiting Last Admin: 12/04/18 05:26 Dose: 4 mg Tramadol HCl (Ultram) 50 mg PO TID PRN PRN Reason: Pain, severe (8-10) - Labs Labs: 12/03/18 07:00 12/04/18 06:00 PT 12.8 SECONDS (9.4-12.5) H 12/04/18 06:00 INR 1.13 12/04/18 06:00 APTT 31.8 Seconds (26.9-38.3) 12/04/18 06:00 - Constitutional Appears: In Acute Distress, Other (uncomfortable) - Head Exam Head Exam: ATRAUMATIC, NORMAL INSPECTION - Eye Exam Eye Exam: EOMI. absent: Scleral icterus - ENT Exam ENT Exam: Mucous Membranes Dry. absent: Mucous Membranes Moist - Respiratory Exam Respiratory Exam: NORMAL BREATHING PATTERN. absent: Accessory Muscle Use - GI/Abdominal Exam GI & Abdominal Exam: Distended, Soft, Tenderness (mildly ttp diffusely w/o guarding), Normal Bowel Sounds. absent: Firm, Guarding, Rigid Assessment and Plan - Assessment and Plan (Free Text) Assessment: 48 yo Israeli female presenting with abd pain found to have severe constipation, possible colitis vs underlying mass and liver lesion (possible met) # Abd Pain: Due to severe constipation with large stool burden on CT. Passing gas, but no significant BM post enemas and miralax. # Possible neoplastic lesion: Seen on CT in descending colon/sigmoid junction. No prior CSPY. # Liver lesion: Met vs other Plan: - STAT CT Abd Pelvis - NPO - Supportive care - May ultimately need surgical intervention - Gen surg on consult Pt seen and examined with Dr. Prado. Please see attestation for further recs/changes. <Susi Prado - Last Filed: 12/04/18 10:19> Objective - Vital Signs/Intake and Output Vital Signs (last 24 hours): Temp Pulse Resp BP Pulse Ox 98.6 F 86 20 152/94 H 98 12/04/18 06:00 12/04/18 06:00 12/04/18 06:00 12/04/18 06:00 12/04/18 06:00 Intake and Output: 12/04/18 12/04/18 06:59 18:59 Intake Total 300 Balance 300 - Medications Medications: Current Medications Potassium Chloride (Potassium Chloride 10 Meq/100 Ml) 10 meq in 100 mls @ 100 mls/hr IVPB Q2H [facility] Stop: 12/04/18 15:14 Last Admin: 12/04/18 09:41 Dose: 100 mls/hr Potassium Chloride 40 meq/ (Lactated Ringer's) 1,020 mls @ 75 mls/hr IV .Q 13H36M [facility] Ketorolac Tromethamine (Toradol) 15 mg IVP Q6H PRN PRN Reason: Pain, moderate (4-7) Stop: 12/06/18 22:16 Last Admin: 12/04/18 05:28 Dose: 15 mg Morphine Sulfate (Morphine) 2 mg IVP Q4H PRN PRN Reason: Pain, moderate (4-7) Ondansetron HCl (Zofran Inj) 4 mg IVP Q6H PRN PRN Reason: Nausea/Vomiting Last Admin: 12/04/18 05:26 Dose: 4 mg - Labs Labs: 12/03/18 07:00 12/04/18 06:00 PT 12.8 SECONDS (9.4-12.5) H 12/04/18 06:00 INR 1.13 12/04/18 06:00 APTT 31.8 Seconds (26.9-38.3) 12/04/18 06:00 Attending/Attestation - Attestation I have personally seen and examined this patient.: Yes I have fully participated in the care of the patient.: Yes I have reviewed all pertinent clinical information, including history, physical exam and plan: Yes Notes (Text): 12/04/18 10:16 I have seen and examined the pt with the GI fellow. Finished 3/4 of Golytely, but notes she is not passing any gas or having any BMs. This am, had some liquids for breakfast and developed worsening abdominal pain. Denies vomiting. Very uncomfortable and crying in pain. very frustrated. NPO for now. Will get repeat CT abd/pelvis w/o contrast. Suspect with underlying neoplasm causing blockage. Discussed case with primary team and rn surgical. 12/04/18 10:19
[2018-12-04] MEDS ORDERED: Lactated Ringer's 1,000 ML IV SCH ×3 (09:29→23:49)
[2018-12-04] MEDS: Mineral Oil Enema 135 ml RC SCH (09:42)
[2018-12-04] MEDS ORDERED: Morphine 2 mg/ml ISec IVP STA (09:44)
[2018-12-04] MEDS ORDERED: Morphine 2 mg/ml ISec IVP PRN (09:45)
[2018-12-04] MEDS ORDERED: Potassium Chloride 40 MEQ in Lactated Ringer's 1,000 ML IV SCH (09:51)
[2018-12-04 10:28] LABS: BASO # 0.01 K/mm3 (0.0-2.0); BASO % 0.1 % (0.0-3.0); EOS % 0.3 % (1.5-5.0); LYMPH # 2.1 (1.2-3.4); LYMPH % 28.6 % (22.0-35.0); MEAN CELL VOLUME 81.3 fl (80.0-105.0); MEAN CORPUSCULAR HEMOGLOBIN 27.1 pg (25.0-35.0); MEAN CORPUSCULAR HGB CONC 33.3 g/dl (31.0-37.0); MEAN PLATELET VOLUME 9.6 fl (7.0-11.0); MONO # 0.5 (0.1-0.6); MONO % 7.5 % (1.0-6.0); RBC 4.8 10^6/uL (3.5-6.1); RED CELL DISTRIBUTION WIDTH 13.1 % (11.5-14.5); WHITE BLOOD COUNT 7.2 10^3/uL (4.5-11.0)
--- NOTE | 2018-12-04 10:45 | CT ---
Date of service: 12/04/2018 PROCEDURE: CT Abdomen and Pelvis without intravenous contrast HISTORY: abd pain, r/o perf/obstruction COMPARISON: CT scan of the abdomen pelvis dated 12/01/2018. TECHNIQUE: Contiguous images were obtained from the domes of the diaphragms to the upper thighs without the administration of intravenous contrast. Oral contrast was not administered. Radiation dose: Total exam DLP = 447.36 mGy-cm. This CT exam was performed using one or more of the following dose reduction techniques: Automated exposure control, adjustment of the mA and/or kV according to patient size, and/or use of iterative reconstruction technique. FINDINGS: LOWER THORAX: Heart size normal. Trace pericardial effusion. No focal consolidation or pleural effusion. LIVER: Stable appearance of nonspecific posterior right hepatic lobe 1.1 cm low-density lesion. No ductal dilatation. GALLBLADDER AND BILE DUCTS: Distended with vicariously excreted intravenous contrast from recent CT scan. PANCREAS: Unremarkable. No gross lesion or ductal dilatation. SPLEEN: 1.5 cm splenic cyst. ADRENALS: Unremarkable. No mass. KIDNEYS AND URETERS: Unremarkable. No hydronephrosis. No solid mass. VASCULATURE: Unremarkable. No aortic aneurysm. No aortic atherosclerotic calcification or mural plaque present. BOWEL: Markedly distended colon with cecum measuring 6.5 cm with abrupt transition at the descending/sigmoid colon junction where there is an area of irregular thickening. APPENDIX: Unremarkable. Normal appendix. PERITONEUM: Unremarkable. No free fluid. No free air. LYMPH NODES: Unremarkable. No enlarged lymph nodes. BLADDER: Unremarkable. REPRODUCTIVE: Unremarkable. BONES: No acute fracture. OTHER FINDINGS: None. IMPRESSION: Large bowel obstruction secondary to abrupt transition at the descending/sigmoid colon junction where there is an area of irregular thickening, neoplasm suspected. Given colonic findings, lesion in the posterior hepatic lobe may represent metastasis.
--- NOTE | 2018-12-04 11:28 | CARD ---
APPROVED REPORT Date of service: 12/03/2018 EKG Measurement Heart [id number] <Conclusion> Normal sinus rhythm Normal ECG
[2018-12-04 14:20] LABS: BLOOD UREA NITROGEN 15 mg/dL (7-21); CALCIUM 8.9 mg/dL (8.4-10.5); GFR NON-AFRICAN AMERICAN > 60
[2018-12-04] MEDS ORDERED: Morphine 4 mg/ml ISec IVP ONE (18:52)
[2018-12-04] MEDS ORDERED: Propofol 10 mg/ml Inj (20 ML) ONE (20:17)
[2018-12-04] MEDS ORDERED: Rocuronium 10 mg/ml (5 ml) ONE ×2 (20:18→21:37)
[2018-12-04] MEDS ORDERED: Midazolam 2 MG/2 ML VIAL ONE (20:18)
[2018-12-04] MEDS ORDERED: metroNIDAZOLE IV 500 mg/100 ml 500 MG/100 ML BAG ONE (20:34)
[2018-12-04] MEDS ORDERED: cefTRIAXone (Rocephin) 1 gm Inj ONE (20:34)
[2018-12-04] MEDS ORDERED: Glycopyrrolate 0.2 mg/ml (2ml vial) ONE (22:53)
[2018-12-04] MEDS ORDERED: HYDROmorphone 0.5 mg/0.5 ml ISec IVP PRN (23:41)
[2018-12-04] MEDS ORDERED: HYDROmorphone 0.5 mg/0.5 ml ISec IVP ONE ×2 (23:43→23:58)
--- NOTE | 2018-12-04 23:45 | PCM.SURG1 ---
Surgeon's Initial Post Op Note - Surgeon's Notes Surgeon: MD Adam Measurement Superintendent: nA PGY3 Pre-Operative Diagnosis: Large bowel obstruction, descending colonic stricture Operative Findings: descending colon mass/stricture with severe proximal colonic dilation Post-Operative Diagnosis: Large bowel obstruction, descending colon mass Operation Performed: Hartmanns procedure Specimen/Specimens Removed: left colon Estimated Blood Loss: EBL {In ML}: 50 Date of Surgery/Procedure: 12/04/18 Time of Surgery/Procedure: 20:00
[2018-12-05] MEDS ORDERED: HYDROmorphone 0.5 mg/0.5 ml ISec ONE (00:01)
[2018-12-05] MEDS: Morphine 4 mg/ml ISec IVP PRN ×2 (04:03→18:48)
[2018-12-05] MEDS ORDERED: Piperacillin/Tazobact 3.375 gm 100 ML IVPB ONE (06:00)
[2018-12-05 06:09] LABS: HEMOGLOBIN 11.8 g/dL (12.0-16.0); LYMPH # 0.4 (1.2-3.4); LYMPH % 4.2 % (22.0-35.0); MEAN CELL VOLUME 82.3 fl (80.0-105.0); MEAN CORPUSCULAR HEMOGLOBIN 26.8 pg (25.0-35.0); MEAN CORPUSCULAR HGB CONC 32.5 g/dl (31.0-37.0); MEAN PLATELET VOLUME 9.1 fl (7.0-11.0); MONO # 0.7 (0.1-0.6); MONO % 7.2 % (1.0-6.0); PLATELET COUNT 242 10^3/uL (120.0-450.0); RBC 4.41 10^6/uL (3.5-6.1); RED CELL DISTRIBUTION WIDTH 13.1 % (11.5-14.5); WHITE BLOOD COUNT 10.2 10^3/uL (4.5-11.0)
[2018-12-05 07:14] LABS: ALB/GLOB RATIO 1.1 (1.1-1.8); ALBUMIN 2.8 g/dL (3.0-4.8); ALT/SGPT 16 U/L (7-56); AST/SGOT 26 U/L (14-36); BLOOD UREA NITROGEN 17 mg/dL (7-21); CALCIUM 7.9 mg/dL (8.4-10.5); GFR NON-AFRICAN AMERICAN > 60
[2018-12-05] MEDS ORDERED: Lactated Ringer's 1,000 ML IV SCH (07:30)
[2018-12-05] MEDS: Lactated Ringer's 1,000 ML IV SCH ×3 (08:07→23:15)
--- NOTE | 2018-12-05 08:09 | CP.PCM.PN ---
<YuliyaMary - Last Filed: 12/05/18 08:04> Subjective - Date & Time of Evaluation Date of Evaluation: 12/05/18 Time of Evaluation: 07:15 - Subjective Subjective: General Surgery Dr. Medina Pt seen and examined @bedside. Pt went to OR last night for left hemicolectomy 2/2 LBO 2/2 colonic stricture. Pt tolerated procedure well w/ no complications. No acute events overnight. Pt c/o abd pain, moderately controlled w/ meds. Pt denies F/C, N/V. (-)flatus/BM. Terry 145mL serosanguinous Crenshaw 250mL cloudy, yellow Objective - Vital Signs/Intake and Output Vital Signs (last 24 hours): Temp Pulse Resp BP Pulse Ox 98.0 F 85 16 117/67 97 12/05/18 00:24 12/05/18 00:24 12/05/18 00:24 12/05/18 00:24 12/05/18 00:24 Intake and Output: 12/05/18 12/05/18 06:59 18:59 Intake Total 900 Output Total 345 Balance 555 - Medications Medications: Current Medications Heparin Sodium (Porcine) (Heparin) 5,000 units SC Q8 [facility]; Protocol Last Admin: 12/05/18 06:08 Dose: 5,000 units Lactated Ringer's (Lactated Ringer's) 1,000 mls @ 125 mls/hr IV .Q8H [facility] Morphine Sulfate (Morphine) 4 mg IVP Q4H PRN PRN Reason: Pain, moderate (4-7) Last Admin: 12/05/18 04:03 Dose: 4 mg Ondansetron HCl (Zofran Inj) 4 mg IVP Q6H PRN PRN Reason: Nausea/Vomiting Last Admin: 12/04/18 13:34 Dose: 4 mg - Labs Labs: 12/05/18 05:30 12/05/18 05:30 PT 12.8 SECONDS (9.4-12.5) H 12/04/18 06:00 INR 1.13 12/04/18 06:00 APTT 31.8 Seconds (26.9-38.3) 12/04/18 06:00 - Constitutional Appears: Non-toxic, No Acute Distress - Head Exam Head Exam: NORMAL INSPECTION - Eye Exam Eye Exam: Normal appearance - ENT Exam ENT Exam: Mucous Membranes Moist - Respiratory Exam Respiratory Exam: NORMAL BREATHING PATTERN. absent: Accessory Muscle Use, Respiratory Distress - Cardiovascular Exam Cardiovascular Exam: REGULAR RHYTHM. absent: Bradycardia, Tachycardia - GI/Abdominal Exam GI & Abdominal Exam: Soft, Tenderness (appropriate TTP). 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 Adam Dwyer PGY3 <Kiran Medina - Last Filed: 12/06/18 19:04> Objective - Vital Signs/Intake and Output Vital Signs (last 24 hours): Temp Pulse Resp BP Pulse Ox 99.9 F H 82 18 103/67 96 12/06/18 08:08 12/06/18 16:08 12/06/18 16:08 12/06/18 16:08 12/06/18 16:08 - Medications Medications: Current Medications Benzocaine/Menthol (Cepacol Sore Throat) 1 amy MT Q2H PRN PRN Reason: Sore Throat Last Admin: 12/05/18 15:21 Dose: 1 amy Heparin Sodium (Porcine) (Heparin) 5,000 units SC Q8 [facility]; Protocol Last Admin: 12/06/18 15:05 Dose: 5,000 units Ketorolac Tromethamine (Toradol) 15 mg IVP Q6H [facility] Last Admin: 12/06/18 16:20 Dose: 15 mg Morphine Sulfate (Morphine) 4 mg IVP Q4H PRN PRN Reason: Pain, moderate (4-7) Last Admin: 12/06/18 04:53 Dose: 4 mg Ondansetron HCl (Zofran Inj) 4 mg IVP Q6H PRN PRN Reason: Nausea/Vomiting Last Admin: 12/04/18 13:34 Dose: 4 mg Pantoprazole Sodium (Protonix Ec Tab) 40 mg PO 0600 [facility] Last Admin: 12/06/18 04:59 Dose: 40 mg - Labs Labs: 12/06/18 06:00 12/06/18 06:00 PT 12.8 SECONDS (9.4-12.5) H 12/04/18 06:00 INR 1.13 12/04/18 06:00 APTT 31.8 Seconds (26.9-38.3) 12/04/18 06:00 Assessment and Plan - Assessment and Plan (Free Text) Plan: Patient was seen, evaluated and examined by me at the bedside. I agree with assessment and plan as stated in the resident's note.
[2018-12-05 08:21] LABS: LYMPHOCYTE 3 % (22.0-35.0); MONOCYTE 7 % (1.0-6.0); NEUTROPHIL 90 % (50.0-70.0); PLATELET ESTIMATE NORMAL (NORMAL)
--- NOTE | 2018-12-05 08:40 | OP ---
PROCEDURE DATE: 12/04/2018 PREOPERATIVE DIAGNOSIS: Large bowel obstruction, descending colonic stricture. POSTOPERATIVE DIAGNOSIS: Large bowel obstruction, descending colonic mass. PROCEDURE PERFORMED: Jeramie's procedure. SURGEON: Kiran Medina MD LITHOGRAPHIC PHOTOGRAPHER: Lm Nolan DO, PGY-3. ANESTHESIOLOGIST: Dr. Albrecht. ANESTHESIA: General. ESTIMATED BLOOD LOSS: 50 mL. HISTORY OF PATIENT: This is a 48-year-old female that presented to the hospital 3 days prior with 2 days worth of abdominal pain and distention and also complains of constipation. The patient was monitored in the hospital and continued to develop increase in abdominal distention and increase in abdominal pain despite aggressive medical management. The patient has not been able to pass flatus for the last [address] scan was done which showed increase in the large bowel dilatation proximal to a stricture in the descending colon. DESCRIPTION OF OPERATION: The patient was sedated and intubated in the usual fashion. Abdomen was prepped and draped in the usual sterile fashion. Time-out was called indicating correct patient and correct operation. A paramidline abdominal incision was made all the way to the level of the fascia. The fascia was then incised at the level of the umbilicus and abdomen was entered. The fascial incision was extended all the way up to the level of the skin incision and all the way down also. Upon entering the intra-abdominal cavity, it was noted that the colon from the left side all the way to the cecum was very dilated. The descending colonic mass was palpable and was brought out to the level of the skin. Proximal to this, a pursestring suture was placed followed by incision into the colon itself with electrocautery. Upon incision into the colon, suction tube was placed inside the colon to suck up all the air and liquid stool that had been backed up for days. Pool suction was changed multiple times due to the amount of thick stool that was in the colon. Approximately 1 liter of stool was suctioned out of the colon. Upon suctioning the colon, the rest of the colon was examined. The leonard of the colon was noted to be very viable. The cecum was noted to be injected, but viable. Upon suctioning of the colon, the distention improved. On the left side, distal to the colonic mass on the lateral aspect, the line of Toldt's was taken down with a harmonic, all the way up to the level of the splenic flexure. Care was noted to identify and avoid the ureters on the left side which was done. Attention was then taken distal to the colonic mass. Mesenteric incision was made at the level of the colonic transection in the sigmoid region. CHET was used to transect the colon approximately 10 cm distal to the colonic mass. CHET was also used to transect the colon approximately 20 cm proximal through the colonic mass. Harmonic was used to separate the resected colon from its mesentery. Upon resection of the colon, abdomen was irrigated thoroughly with warm fluid. After left hemicolectomy, the distal stump on the sigmoid was sutured to the left lower lateral abdominal wall for easy identification on repeat operations. The proximal stump was used for stoma creation. At the level of the umbilicus and at the line of the semilunaris, circular incision was made on the skin for planned placement of stoma. Further dissection was done all the way to the level of the fascia, 2 fingers were able to fit within the defect. Juanjo was used to pull the proximal colonic stump through the fascial defect all the way to the level of the skin. This was able to be done without any resistance and any tension. Drain was also placed coming out of the right lower abdomen and placed within the pelvis. Midline incision at the level of the fascia was closed with PDS sutures, started from the top of the incision, and at the bottom and meeting in the middle and tied down in the middle. Care was noted to make sure there were no spaces between the sutures at the level of the fascia. The dermal layers were approximated using the Vicryl stitches followed by sherly to close the skin. Midline incision was dressed with silver dressing. Upon placement of drain, closure of midline incision, the proximal colonic stump was sutured to the fascia and also to the skin in hoyos fashion. The stoma was patent and pink. Wafer and colostomy bag was placed on the patient. Abdomen was cleaned and dried, and the patient was awakened from anesthesia. The patient came to the post-anesthesia care unit without any complications. The patient tolerated the procedure well. Estimated blood loss was 50 mL. Lm Nolan DO Kiran Medina MD [facility] # [id number] [facility]
--- NOTE | 2018-12-05 08:48 | CP.PCM.PN ---
<LiliyaradhaJb herbert - Last Filed: 12/05/18 08:50> Subjective - Date & Time of Evaluation Date of Evaluation: 12/05/18 Time of Evaluation: 07:05 - Subjective Subjective: PGY6 GI Fellow Progress Note Patient seen and examined bedside this morning. The patient states that she is having pain diffusely over the abdomen. Denies any nausea, vomiting. No events overnight. 12 system ROS performed and negative except where stated Objective - Vital Signs/Intake and Output Vital Signs (last 24 hours): Temp Pulse Resp BP Pulse Ox 97.1 F L 74 18 93/58 L 97 12/05/18 08:12 12/05/18 08:12 12/05/18 08:12 12/05/18 08:12 12/05/18 08:12 Intake and Output: 12/05/18 12/05/18 06:59 18:59 Intake Total 900 Output Total 345 Balance 555 - Medications Medications: Current Medications Heparin Sodium (Porcine) (Heparin) 5,000 units SC Q8 ZEFERINO; Protocol Last Admin: 12/05/18 06:08 Dose: 5,000 units Lactated Ringer's (Lactated Ringer's) 1,000 mls @ 125 mls/hr IV .Q8H ZEFERINO Last Admin: 12/05/18 08:07 Dose: 125 mls/hr Morphine Sulfate (Morphine) 4 mg IVP Q4H PRN PRN Reason: Pain, moderate (4-7) Last Admin: 12/05/18 04:03 Dose: 4 mg Ondansetron HCl (Zofran Inj) 4 mg IVP Q6H PRN PRN Reason: Nausea/Vomiting Last Admin: 12/04/18 13:34 Dose: 4 mg - Labs Labs: 12/05/18 05:30 12/05/18 05:30 PT 12.8 SECONDS (9.4-12.5) H 12/04/18 06:00 INR 1.13 12/04/18 06:00 APTT 31.8 Seconds (26.9-38.3) 12/04/18 06:00 - Constitutional Appears: Non-toxic, No Acute Distress - Eye Exam Eye Exam: EOMI, PERRL - ENT Exam ENT Exam: Mucous Membranes Moist - Respiratory Exam Respiratory Exam: Clear to Ausculation Bilateral. absent: Rales, Rhonchi, Wheezes - Cardiovascular Exam Cardiovascular Exam: RRR, +S1, +S2 - GI/Abdominal Exam GI & Abdominal Exam: Guarding, Soft, Tenderness (diffusely), Normal Bowel Sounds. absent: Distended, Firm, Rigid, Organomegaly Additional comments: midline surgical scar; LLQ ostomy; RLQ ELDON drain with serosanguinous output - Extremities Exam Extremities Exam: Normal Inspection. absent: Pedal Edema - Neurological Exam Neurological Exam: Alert, Awake, Oriented x3 - Psychiatric Exam Psychiatric exam: Normal Affect, Normal Mood - Skin Skin Exam: Dry, Warm Assessment and Plan - Assessment and Plan (Free Text) Assessment: Patient is a 48yo [place] female who presented with abdominal pain -Descending colon mass s/p left hemicolectomy -Liver lesion, concern for metastatic disease Plan: -Patient s/p left hemicolectomy with discovery of colonic mass lesion causing obstructive symptoms -LLQ ostomy patent with output noted in collection bag -Surgical team following - diet advancement per their team -Awaiting surgical pathology -Will likely need oncology evaluation given findings -No further GI recommendations at this time <August Davey - Last Filed: 12/05/18 09:08> Objective - Vital Signs/Intake and Output Vital Signs (last 24 hours): Temp Pulse Resp BP Pulse Ox 97.1 F L 74 18 93/58 L 97 12/05/18 08:12 12/05/18 08:12 12/05/18 08:12 12/05/18 08:12 12/05/18 08:12 Intake and Output: 12/05/18 12/05/18 06:59 18:59 Intake Total 900 Output Total 345 Balance 555 - Medications Medications: Current Medications Heparin Sodium (Porcine) (Heparin) 5,000 units SC Q8 ZEFERINO; Protocol Last Admin: 12/05/18 06:08 Dose: 5,000 units Lactated Ringer's (Lactated Ringer's) 1,000 mls @ 125 mls/hr IV .Q8H ZEFERINO Last Admin: 12/05/18 08:07 Dose: 125 mls/hr Ketorolac Tromethamine (Toradol) 15 mg IVP Q6H ZEFERINO Morphine Sulfate (Morphine) 4 mg IVP Q4H PRN PRN Reason: Pain, moderate (4-7) Last Admin: 12/05/18 04:03 Dose: 4 mg Ondansetron HCl (Zofran Inj) 4 mg IVP Q6H PRN PRN Reason: Nausea/Vomiting Last Admin: 12/04/18 13:34 Dose: 4 mg - Labs Labs: 12/05/18 05:30 12/05/18 05:30 PT 12.8 SECONDS (9.4-12.5) H 12/04/18 06:00 INR 1.13 12/04/18 06:00 APTT 31.8 Seconds (26.9-38.3) 12/04/18 06:00 Attending/Attestation - Attestation I have personally seen and examined this patient.: Yes I have fully participated in the care of the patient.: Yes I have reviewed all pertinent clinical information, including history, physical exam and plan: Yes Notes (Text): 12/05/18 09:06 I have seen and examined patient with GI fellow. No acute events overnight, she reports pain at surgical site but otherwise denies nausea, vomiting, fever/chills. s/p L hemicolectomy with end ostomy yesterday for large bowel obstruction. Abdominal pain Colonic mass, large bowel obstruction s/p surgical intervention - NPO - Awaiting pathology results from colon mass - Follow up surgical recommendations - Follow up oncology recommendations - No further planned GI intervention at this time, will sign off case. Please reconsult as necessary, thank you.
--- NOTE | 2018-12-05 09:50 | CP.PCM.PN ---
<Nicholas Rubio - Last Filed: 12/05/18 11:42> Subjective - Date & Time of Evaluation Date of Evaluation: 12/05/18 Time of Evaluation: 09:47 - Subjective Subjective: Nicholas Rubio DO PGY1 - Medicine Progress Note Seen examined at bedside this morning w/ and [employer] air conditioning unit tester. OR last night for hemicolectomy + colostomy Passing stool into ostomy; c/o chest tightness/ sob upon OOB to chair earlier this morning, No complaints voiced during time of evaluation. Abd pain is well controlled at this itme; significantly improved from day prior. tolerating diet well w/o complaint/ pain encouraged to ambulate; and use incentive spirometer. Patient was explained that a mass was removed from her intestine and mass has been sent out for pathology. Notified that path results will be communicated as soon as they are made available. Objective - Vital Signs/Intake and Output Vital Signs (last 24 hours): Temp Pulse Resp BP Pulse Ox 97.1 F L 74 18 93/58 L 97 12/05/18 08:12 12/05/18 08:12 12/05/18 08:12 12/05/18 08:12 12/05/18 08:12 Intake and Output: 12/05/18 12/05/18 06:59 18:59 Intake Total 900 Output Total 345 Balance 555 - Medications Medications: Current Medications Heparin Sodium (Porcine) (Heparin) 5,000 units SC Q8 ZEFERINO; Protocol Last Admin: 12/05/18 06:08 Dose: 5,000 units Lactated Ringer's (Lactated Ringer's) 1,000 mls @ 125 mls/hr IV .Q8H ZEFERINO Last Admin: 12/05/18 08:07 Dose: 125 mls/hr Ketorolac Tromethamine (Toradol) 15 mg IVP Q6H ZEFERINO Last Admin: 12/05/18 09:33 Dose: 15 mg Morphine Sulfate (Morphine) 4 mg IVP Q4H PRN PRN Reason: Pain, moderate (4-7) Last Admin: 12/05/18 04:03 Dose: 4 mg Ondansetron HCl (Zofran Inj) 4 mg IVP Q6H PRN PRN Reason: Nausea/Vomiting Last Admin: 12/04/18 13:34 Dose: 4 mg - Labs Labs: 12/05/18 05:30 12/05/18 05:30 PT 12.8 SECONDS (9.4-12.5) H 12/04/18 06:00 INR 1.13 12/04/18 06:00 APTT 31.8 Seconds (26.9-38.3) 12/04/18 06:00 - Constitutional Appears: Well, Non-toxic, No Acute Distress - Head Exam Head Exam: ATRAUMATIC, NORMOCEPHALIC - Eye Exam Eye Exam: EOMI, Normal appearance, PERRL. absent: Scleral icterus - Respiratory Exam Respiratory Exam: Clear to Ausculation Bilateral, NORMAL BREATHING PATTERN - Cardiovascular Exam Cardiovascular Exam: RRR. absent: Murmur - GI/Abdominal Exam GI & Abdominal Exam: Hypoactive Bowel Sounds Additional comments: Abdomen w/ midline dressing in place ; dressing CDI Left sided ostomy w/ stool output R sided ELDON drain w/ 145cc serosanguinous drainage Mildly tender to palpation - Extremities Exam Extremities Exam: Normal Capillary Refill. absent: Pedal Edema - Neurological Exam Neurological Exam: Alert, Awake, Oriented x3 Assessment and Plan - Assessment and Plan (Free Text) Assessment: 48F w/ PMH thyroid mass presented to [facility] ED on 12/01 w/ CC of diffuse abdominal pain and constipation x2 days prior to arrival s/p L hemicolectomy w/ ostomy on 12/04 Plan: Large Bowel Obstruction 2/2 Colonic Mass s/p L hemicolectomy w/ ostomy on 12/04 - POD#0 12/01 0016 - CTAP w/ IV/PO Contrast - 11mm liver hypodensity not seen in 2018 study; Moderate constipation in the right side of the colon, focal area of mural thickening in descending and sigmoid colon- colitis vs neoplastic lesion 12/01 1621 - Abd XR - No evidence of free air. Distension of colon presumably up to the level of the previously described focal area of mural thickening at the junction of the descending and sigmoid colon. 12/04 - CTAP w/o PO CON - Large bowel obstruction secondary to abrupt transition at the descending/sigmoid colon junction where there is an area of irregular t hickening, neoplasm suspected. Went to OR last night w/ Dr. Martino No evidence of perforation Mass resected and sent to pathology Resumed on CLD this AM Encouraged OOB to chair, Incentive Spiroeter use, Further post op reccs as per surgeyr C/w Toradol, Morphine, Zofran Heme Onc Consulted given colonic mass and to establish care Surgery is following, appreciate reccs GI Signed Off SOB/Chest Tightness EKG - No ischemic changes Trop - Negtive Continue monitoring; Incentive Spirometer Use Liver Lesion Will need further workup once stable Heme Onc Consulted GI Signed Off Patient was seen, examined, and discussed w/ attending Dr. Magali Rubio DO PGY1 - Internal Medicine Interior Design Director - Medicine Progress Note <Crys De Los Santos - Last Filed: 12/05/18 14:07> Objective - Vital Signs/Intake and Output Vital Signs (last 24 hours): Temp Pulse Resp BP Pulse Ox 97.1 F L 74 18 93/58 L 97 12/05/18 08:12 12/05/18 08:12 12/05/18 08:12 12/05/18 08:12 12/05/18 08:12 Intake and Output: 12/05/18 12/05/18 06:59 18:59 Intake Total 900 Output Total 345 Balance 555 - Medications Medications: Current Medications Benzocaine/Menthol (Cepacol Sore Throat) 1 amy MT Q2H PRN PRN Reason: Sore Throat Heparin Sodium (Porcine) (Heparin) 5,000 units SC Q8 ZEFERINO; Protocol Last Admin: 12/05/18 13:50 Dose: 5,000 units Lactated Ringer's (Lactated Ringer's) 1,000 mls @ 125 mls/hr IV .Q8H ZEFERINO Last Admin: 12/05/18 08:07 Dose: 125 mls/hr Ketorolac Tromethamine (Toradol) 15 mg IVP Q6H ZEFERINO Last Admin: 12/05/18 09:33 Dose: 15 mg Morphine Sulfate (Morphine) 4 mg IVP Q4H PRN PRN Reason: Pain, moderate (4-7) Last Admin: 12/05/18 04:03 Dose: 4 mg Ondansetron HCl (Zofran Inj) 4 mg IVP Q6H PRN PRN Reason: Nausea/Vomiting Last Admin: 12/04/18 13:34 Dose: 4 mg Pantoprazole Sodium (Protonix Ec Tab) 40 mg PO 0600 ZEFERINO - Labs Labs: 12/05/18 05:30 12/05/18 05:30 PT 12.8 SECONDS (9.4-12.5) H 12/04/18 06:00 INR 1.13 12/04/18 06:00 APTT 31.8 Seconds (26.9-38.3) 12/04/18 06:00 Attending/Attestation - Attestation I have personally seen and examined this patient.: Yes I have fully participated in the care of the patient.: Yes I have reviewed all pertinent clinical information, including history, physical exam and plan: Yes Notes (Text): 12/05/18 14:02 Attending note; Patient seen and examined with resident. Translation used. Patient's by the bedside. Status post colon resection and colostomy and ELDON drain placement. Patient is sitting in the chair. Currently on liquid diet. Denies any nausea, vomiting. Patient is a 48 year old Czech Speaking female with past medical history significant for benign thyroid mass s/p biopsy that presented to the emergency room with abdominal pain and constipation. 1. Large bowel obstruction; status post laparotomy, colon resection and colostomy. Patient has ELDON drain in place. About 140 cc of serosanguineous fluid. Monitor closely. Continue incentive spirometry. Out of bed to chair as tolerated. Started on clear liquid diet by surgery. Colostomy has liquid stool. Pathology results pending. Oncology evaluation requested. Discontinue Mallory catheter later today. 2. Abdominal pain; improving. Continue IV Toradol. 3. Nausea; resolved. Continue Zofran as needed. 4. GI prophylaxis with Protonix. 5. DVT prophylaxis with heparin. Diagnosis, treatment plan discussed with patient and patient's in detail via academic affairs dean.
[2018-12-05] MEDS ORDERED: Benzocaine/Menthol (Cepacol) Lozenge MT PRN (13:53)
--- NOTE | 2018-12-05 17:44 | CARD ---
APPROVED REPORT Date of service: 12/05/2018 EKG Measurement Heart [id number] <Conclusion> Normal sinus rhythm Nonspecific T wave abnormality Abnormal ECG
--- NOTE | 2018-12-06 00:45 | CP.PCM.CON ---
History of Present Illness - History of Present Illness History of Present Illness: 48 year old female presenting with abdominal pain, large bowel obstruction, found to have a left sided colonic mass s/p hemicolectomy, isolated liver lesion. The patient reports to progressive abdominal discomfort and constipation over the last few days. She came to the hospital and subsequently underwent a left hemicolectomy. CT A/P revaled an isolated liver lesion. Past medical history: Thyroid lesion s/p biopsy - reports was benign Past surgical history: left hemicolectomy Family history: Denies hematologic and oncologic problems Social history: Denies tobacco, alcohol, and illicit drug use. Allergies: NKA Review of systems: All remaining review of systems including HEENT, cardiovascular, respiratory, gastrointestinal, genitourinary, musculoskeletal, dermatologic, neurologic, and psychiatric are negative unless mentioned in the HPI. Past Patient History - Infectious Disease Hx of Infectious Diseases: None - Tetanus Immunizations Tetanus Immunization: Unknown - Past Social History Smoking Status: Never Smoked - CARDIAC Hx Cardiac Disorders: No - PULMONARY Hx Respiratory Disorders: No - NEUROLOGICAL Hx Neurological Disorder: No - HEENT Hx HEENT Problems: No - RENAL Hx Chronic Kidney Disease: No - ENDOCRINE/METABOLIC Hx Endocrine Disorders: Yes Other/Comment: THYROID MASS - HEMATOLOGICAL/ONCOLOGICAL Hx Blood Transfusions: No - INTEGUMENTARY Hx Dermatological Problems: No - MUSCULOSKELETAL/RHEUMATOLOGICAL Hx Musculoskeletal Disorders: No - GASTROINTESTINAL Hx Gastrointestinal Disorders: No - GENITOURINARY/GYNECOLOGICAL Hx Genitourinary Disorders: No - PSYCHIATRIC Hx Psychophysiologic Disorder: No - SURGICAL HISTORY Hx Surgeries: No - ANESTHESIA Hx Anesthesia Reactions: No Hx Malignant Hyperthermia: No Meds Allergies/Adverse Reactions: Allergies Allergy/AdvReac Type Severity Reaction Status Date / Time No Known Allergies Allergy Verified 12/01/18 00:02 - Medications Medications: Current Medications Benzocaine/Menthol (Cepacol Sore Throat) 1 amy MT Q2H PRN PRN Reason: Sore Throat Last Admin: 12/05/18 15:21 Dose: 1 amy Heparin Sodium (Porcine) (Heparin) 5,000 units SC Q8 ZEFERINO; Protocol Last Admin: 12/05/18 21:30 Dose: 5,000 units Lactated Ringer's (Lactated Ringer's) 1,000 mls @ 125 mls/hr IV .Q8H ZEFERINO Last Admin: 12/05/18 23:15 Dose: 125 mls/hr Ketorolac Tromethamine (Toradol) 15 mg IVP Q6H [facility] Last Admin: 12/05/18 21:31 Dose: 15 mg Morphine Sulfate (Morphine) 4 mg IVP Q4H PRN PRN Reason: Pain, moderate (4-7) Last Admin: 12/05/18 18:48 Dose: 4 mg Ondansetron HCl (Zofran Inj) 4 mg IVP Q6H PRN PRN Reason: Nausea/Vomiting Last Admin: 12/04/18 13:34 Dose: 4 mg Pantoprazole Sodium (Protonix Ec Tab) 40 mg PO 0600 [facility] Physical Exam - Head Exam Head Exam: ATRAUMATIC - Eye Exam Eye Exam: Normal appearance - ENT Exam ENT Exam: Mucous Membranes Dry - Respiratory Exam Respiratory Exam: NORMAL BREATHING PATTERN - Cardiovascular Exam Cardiovascular Exam: +S1, +S2 - GI/Abdominal Exam GI & Abdominal Exam: Normal Bowel Sounds - Extremities Exam Extremities exam: Positive for: normal inspection - Neurological Exam Neurological exam: Oriented x3 - Psychiatric Exam Psychiatric exam: Normal Affect, Normal Mood - Skin Skin Exam: Warm Results - Vital Signs Recent Vital Signs: Last Vital Signs Temp 97.1 F L 12/05/18 08:12 Pulse 74 12/05/18 08:12 Resp 18 12/05/18 08:12 BP 93/58 L 12/05/18 08:12 Pulse Ox 97 12/05/18 08:12 - Labs Result Diagrams: 12/05/18 05:30 12/05/18 05:30 Labs: Laboratory Results - last 24 hr 12/05/18 12/05/18 12/05/18 05:30 05:30 05:30 WBC 10.2 D RBC 4.41 Hgb 11.8 L Hct 36.3 MCV 82.3 MCH 26.8 MCHC 32.5 RDW 13.1 Plt Count 242 MPV 9.1 Neut % (Auto) 88.6 H Lymph % (Auto) 4.2 L Hays % (Auto) 7.2 H Eos % (Auto) 0.0 L Baso % (Auto) 0.0 Lymph # (Auto) 0.4 L Hays # (Auto) 0.7 H Eos # (Auto) 0.0 Baso # (Auto) 0.00 Absolute Neuts (auto) 9.04 H Neutrophils % (Manual) 90 H Lymphocytes % (Manual) 3 L Monocytes % (Manual) 7 H Platelet Evaluation Normal Sodium 137 Potassium 3.8 Chloride 106 Carbon Dioxide 25 Anion Gap 10 BUN 17 Creatinine 0.6 L Est GFR ( Amer) > 60 Est GFR (Non-Af Amer) > 60 Random Glucose 128 H Calcium 7.9 L Phosphorus 4.0 Magnesium 1.8 Total Bilirubin 0.3 AST 26 ALT 16 Alkaline Phosphatase 49 Troponin I Total Protein 5.3 L Albumin 2.8 L Globulin 2.6 Albumin/Globulin Ratio 1.1 12/05/18 09:30 WBC RBC Hgb Hct MCV MCH MCHC RDW Plt Count MPV Neut % (Auto) Lymph % (Auto) Hays % (Auto) Eos % (Auto) Baso % (Auto) Lymph # (Auto) Hays # (Auto) Eos # (Auto) Baso # (Auto) Absolute Neuts (auto) Neutrophils % (Manual) Lymphocytes % (Manual) Monocytes % (Manual) Platelet Evaluation Sodium Potassium Chloride Carbon Dioxide Anion Gap BUN Creatinine Est GFR ( Amer) Est GFR (Non-Af Amer) Random Glucose Calcium Phosphorus Magnesium Total Bilirubin AST ALT Alkaline Phosphatase Troponin I < 0.01 Total Protein Albumin Globulin Albumin/Globulin Ratio Assessment & Plan (1) Colonic mass Assessment and Plan: associated with obstruction s/p hemicolectomy f/u pathology liver lesion concerning for metastatic disease - will need IR guided biopsy to confirm mets once hemicolectomy pathology available CT chest with IV contrast to complete staging CEA tumor marker Status: Acute (2) Anemia Assessment and Plan: retic count, b12, folate, ferritin Thank you for this interesting consult. Status: Acute
[2018-12-06] MEDS: Morphine 4 mg/ml ISec IVP PRN ×2 (04:53→20:09)
[2018-12-06] MEDS: Pantoprazole 40 mg EC Tab PO SCH (04:59)
[2018-12-06 06:47] LABS: BASO # 0.02 K/mm3 (0.0-2.0); BASO % 0.3 % (0.0-3.0); EOS # 0.1 (0.0-0.7); EOS % 1.3 % (1.5-5.0); HEMOGLOBIN 9.4 g/dL (12.0-16.0); LYMPH # 1.5 (1.2-3.4); MEAN CELL VOLUME 83.1 fl (80.0-105.0); MEAN CORPUSCULAR HEMOGLOBIN 26.4 pg (25.0-35.0); MEAN CORPUSCULAR HGB CONC 31.8 g/dl (31.0-37.0); MEAN PLATELET VOLUME 9.5 fl (7.0-11.0); MONO # 0.4 (0.1-0.6); MONO % 6.9 % (1.0-6.0); RBC 3.56 10^6/uL (3.5-6.1); RED CELL DISTRIBUTION WIDTH 13.2 % (11.5-14.5); WHITE BLOOD COUNT 6.1 10^3/uL (4.5-11.0)
[2018-12-06 07:10] LABS: ALBUMIN 2.5 g/dL (3.0-4.8); ALT/SGPT 20 U/L (7-56); AST/SGOT 30 U/L (14-36); BLOOD UREA NITROGEN 18 mg/dL (7-21); CALCIUM 7.8 mg/dL (8.4-10.5); GFR NON-AFRICAN AMERICAN > 60
[2018-12-06] MEDS ORDERED: Iohexol 300 100 ML IJ ONE (07:22)
--- NOTE | 2018-12-06 08:10 | CP.PCM.PN ---
<Lm Nolan - Last Filed: 12/06/18 08:05> Subjective - Date & Time of Evaluation Date of Evaluation: 12/06/18 Time of Evaluation: 08:06 - Subjective Subjective: SURGERY NOTE FOR DR. MEDINA 48F seen and examined at bedside. Patient states pain is controlled with medication, denies nausea or vomiting, denies fevers or chills. Patient admits to output from ostomy, gas and some liquid stool. Patient has been out of bed and ambulating. Objective - Vital Signs/Intake and Output Vital Signs (last 24 hours): Temp Pulse Resp BP Pulse Ox 97.1 F L 74 18 93/58 L 97 12/05/18 08:12 12/05/18 08:12 12/05/18 08:12 12/05/18 08:12 12/05/18 08:12 Intake and Output: 12/06/18 12/06/18 06:59 18:59 Intake Total 8280 Output Total 7615 Balance 665 - Medications Medications: Current Medications Benzocaine/Menthol (Cepacol Sore Throat) 1 amy MT Q2H PRN PRN Reason: Sore Throat Last Admin: 12/05/18 15:21 Dose: 1 amy Heparin Sodium (Porcine) (Heparin) 5,000 units SC Q8 ZEFERINO; Protocol Last Admin: 12/06/18 05:00 Dose: 5,000 units Ketorolac Tromethamine (Toradol) 15 mg IVP Q6H [facility] Last Admin: 12/06/18 03:56 Dose: Not Given Morphine Sulfate (Morphine) 4 mg IVP Q4H PRN PRN Reason: Pain, moderate (4-7) Last Admin: 12/06/18 04:53 Dose: 4 mg Ondansetron HCl (Zofran Inj) 4 mg IVP Q6H PRN PRN Reason: Nausea/Vomiting Last Admin: 12/04/18 13:34 Dose: 4 mg Pantoprazole Sodium (Protonix Ec Tab) 40 mg PO 0600 ZEFERINO Last Admin: 12/06/18 04:59 Dose: 40 mg - Labs Labs: 12/06/18 06:00 12/06/18 06:00 PT 12.8 SECONDS (9.4-12.5) H 12/04/18 06:00 INR 1.13 12/04/18 06:00 APTT 31.8 Seconds (26.9-38.3) 12/04/18 06:00 - Constitutional Appears: Non-toxic, No Acute Distress - Respiratory Exam Respiratory Exam: Clear to Ausculation Bilateral, NORMAL BREATHING PATTERN - Cardiovascular Exam Cardiovascular Exam: REGULAR RHYTHM, +S1, +S2 - GI/Abdominal Exam GI & Abdominal Exam: Soft, Tenderness. absent: Distended, Firm, Guarding, Rigid, Rebound Additional comments: drain output over 100, serosanguinous serous drainage from drain site midline incision CDI Ostomy pink and patent, edematous - Extremities Exam Extremities Exam: absent: Pedal Edema, Tenderness - Neurological Exam Neurological Exam: Alert, Awake - Skin Skin Exam: Dry, Intact, Normal Color, Warm Assessment and Plan - Assessment and Plan (Free Text) Assessment: 48F s/p Jeramie's procedure POD#2 for colonic stricture Plan: - advance diet as tolerated - continue pain control - digitize stoma - monitor drain output - daily dressing changes - await pathology Further recs discuss with Dr. Adam Nolan, PGY3 <Kiran Medina - Last Filed: 12/06/18 19:03> Objective - Vital Signs/Intake and Output Vital Signs (last 24 hours): Temp Pulse Resp BP Pulse Ox 99.9 F H 82 18 103/67 96 12/06/18 08:08 12/06/18 16:08 12/06/18 16:08 12/06/18 16:08 12/06/18 16:08 - Medications Medications: Current Medications Benzocaine/Menthol (Cepacol Sore Throat) 1 amy MT Q2H PRN PRN Reason: Sore Throat Last Admin: 12/05/18 15:21 Dose: 1 amy Heparin Sodium (Porcine) (Heparin) 5,000 units SC Q8 ZEFERINO; Protocol Last Admin: 12/06/18 15:05 Dose: 5,000 units Ketorolac Tromethamine (Toradol) 15 mg IVP Q6H ZEFERINO Last Admin: 12/06/18 16:20 Dose: 15 mg Morphine Sulfate (Morphine) 4 mg IVP Q4H PRN PRN Reason: Pain, moderate (4-7) Last Admin: 12/06/18 04:53 Dose: 4 mg Ondansetron HCl (Zofran Inj) 4 mg IVP Q6H PRN PRN Reason: Nausea/Vomiting Last Admin: 12/04/18 13:34 Dose: 4 mg Pantoprazole Sodium (Protonix Ec Tab) 40 mg PO 0600 ZEFERINO Last Admin: 12/06/18 04:59 Dose: 40 mg - Labs Labs: 12/06/18 06:00 12/06/18 06:00 PT 12.8 SECONDS (9.4-12.5) H 12/04/18 06:00 INR 1.13 12/04/18 06:00 APTT 31.8 Seconds (26.9-38.3) 12/04/18 06:00 Assessment and Plan - Assessment and Plan (Free Text) Plan: Patient was seen, evaluated and examined by me at the bedside. I agree with assessment and plan as stated in the resident's note.
[2018-12-06] MEDS: Potassium Chloride 40 mEq/30 ml LIQ UD PO SCH ×2 (13:10→17:19)
--- NOTE | 2018-12-06 15:14 | CT ---
Date of service: 12/06/2018 PROCEDURE: CT Chest with contrast HISTORY: cancer staging COMPARISON: 12/04/2018. CT abdomen and pelvis demonstrating circumferential narrowing at the junction of the descending colon and sigmoid. TECHNIQUE: Contiguous axial images were obtained through the chest with intravenous contrast enhancement. Sagittal and coronal reconstructions were performed. IV contrast: 100 cc Omnipaque 300. Radiation dose: Total exam DLP = 417.33 mGy-cm. This CT exam was performed using one or more of the following dose reduction techniques: Automated exposure control, adjustment of the mA and/or kV according to patient size, and/or use of iterative reconstruction technique. FINDINGS: LUNGS: Clear lungs. Visualized airway clear. MEDIASTINUM: Unremarkable thoracic aorta. No aneurysm or dissection. Normal sized heart. Main pulmonary artery unremarkable. No vascular congestion. No lymphadenopathy. No aortic atherosclerotic calcification or mural plaque present. PLEURA: Trace bilateral pleural effusions. BONES: No fracture. No destructive lesion. UPPER ABDOMEN: 8 mm low-attenuation focus right hepatic lobe too small to characterize further. Free air under the diaphragms. My discussion with referring physician Dr. Meng Stark indicated the patient is status post hemicolectomy for known mass in the left jackson colon. OTHER FINDINGS: Complex, primarily cystic nodule right thyroid lobe 2.5 x 2.5 cm. No correlate of/comparative studies. Relevant interventional procedure(s): 06/24/2017. Ultrasound-guided right thyroid fine needle aspiration biopsy 4 3 cm nodule. Results are not available. IMPRESSION: 1. No evidence of tumor above the diaphragms. 2. Incompletely characterized subcentimeter mass in the right hepatic lobe. 3. Cystic nodule in the right lobe of the thyroid. 4. Postoperative free air under the diaphragms. Communication of results: The study was completed 12:06. I communicated the findings to the referring physician at 15:04.
--- NOTE | 2018-12-06 19:14 | CP.PCM.PN ---
<Nicholas Rubio - Last Filed: 12/06/18 21:56> Subjective - Date & Time of Evaluation Date of Evaluation: 12/06/18 Time of Evaluation: 09:00 - Subjective Subjective: Nicholas Rubio DO PGY1 - Medicine Progress Note Seen examined at bedside this morning w/ and citizen of [place] property inspector. Patient reports she feels significantly better this morning however she is still complaining of mild abdominal discomfort. Explained to patient that these are normal post op findings. Also explained to patient that pathology results are currently pending and further management will depend on those results. She denies any chest pain, sob, n/v. Reports good osotmy out put. Pt. was seen ambulating thorughout the unit She was encouraged to further ambulate and use inhaled spirometer Objective - Vital Signs/Intake and Output Vital Signs (last 24 hours): Temp Pulse Resp BP Pulse Ox 99.9 F H 82 18 103/67 96 12/06/18 08:08 12/06/18 16:08 12/06/18 16:08 12/06/18 16:08 12/06/18 16:08 - Medications Medications: Current Medications Benzocaine/Menthol (Cepacol Sore Throat) 1 amy MT Q2H PRN PRN Reason: Sore Throat Last Admin: 12/05/18 15:21 Dose: 1 amy Heparin Sodium (Porcine) (Heparin) 5,000 units SC Q8 ZEFERINO; Protocol Last Admin: 12/06/18 15:05 Dose: 5,000 units Ketorolac Tromethamine (Toradol) 15 mg IVP Q6H ZEFERINO Last Admin: 12/06/18 16:20 Dose: 15 mg Morphine Sulfate (Morphine) 4 mg IVP Q4H PRN PRN Reason: Pain, moderate (4-7) Last Admin: 12/06/18 04:53 Dose: 4 mg Ondansetron HCl (Zofran Inj) 4 mg IVP Q6H PRN PRN Reason: Nausea/Vomiting Last Admin: 12/04/18 13:34 Dose: 4 mg Pantoprazole Sodium (Protonix Ec Tab) 40 mg PO 0600 ZEFERINO Last Admin: 12/06/18 04:59 Dose: 40 mg - Labs Labs: 12/06/18 06:00 12/06/18 06:00 PT 12.8 SECONDS (9.4-12.5) H 05/27/19 06:00 INR 1.13 12/04/18 06:00 APTT 31.8 Seconds (26.9-38.3) 12/04/18 06:00 - Constitutional Appears: Well, Non-toxic, No Acute Distress - Head Exam Head Exam: ATRAUMATIC, NORMOCEPHALIC - Eye Exam Eye Exam: EOMI, Normal appearance, PERRL. absent: Scleral icterus - Respiratory Exam Respiratory Exam: Clear to Ausculation Bilateral, NORMAL BREATHING PATTERN - Cardiovascular Exam Cardiovascular Exam: RRR. absent: Murmur - GI/Abdominal Exam GI & Abdominal Exam: Bowel sounds present Additional comments: Abdomen w/ midline dressing in place ; dressing CDI Left sided ostomy w/ stool output R sided ELDON drain w/ serosanguinous drainage Mildly tender to palpation - Extremities Exam Extremities Exam: Normal Capillary Refill. absent: Pedal Edema - Neurological Exam Neurological Exam: Alert, Awake, Oriented x3 Assessment and Plan - Assessment and Plan (Free Text) Assessment: 48F w/ PMH thyroid mass presented to [facility] ED on 12/01 w/ CC of diffuse abdominal pain and constipation x2 days prior to arrival s/p L hemicolectomy w/ ostomy on 12/04 Plan: Large Bowel Obstruction 2/2 Colonic Mass s/p L hemicolectomy w/ ostomy and Mass resection on 12/04 - POD#1 12/01 0016 - CTAP w/ IV/PO Contrast - 11mm liver hypodensity not seen in 2018 study; Moderate constipation in the right side of the colon, focal area of mural thickening in descending and sigmoid colon- colitis vs neoplastic lesion 12/01 1621 - Abd XR - No evidence of free air. Distension of colon presumably up to the level of the previously described focal area of mural thickening at the junction of the descending and sigmoid colon. 12/04 - CTAP w/o PO CON - Large bowel obstruction secondary to abrupt transition at the descending/sigmoid colon junction where there is an area of irregular thickening, neoplasm suspected. POD#1 Ambulating well, Good ostomy output, tolerating CLD well Encouraged OOB to chair, Incentive Spiroeter use, Further post op reccs as per surgery Analgesia as per surgery ; Toradol Zofran prn Heme Onc Consulted given colonic mass and to establish care Surgery is following, appreciate reccs GI Signed Off Colonic Mass Path Pending 12/06 - CTAP - No evidence of tumor above diaphgram, Incompletely characterized subcentimeter mass in the right hepatic lobe CEA wnl - 2.7 Anemia - Normocytic - Asymptomatic Hb 9.4 Likely dilutional given drop across wbc and plt values cont. monitoring Hypokalemia Replete + Recheck Liver Lesion Will need IR guided biopsy to confirm mets once colonic mass path returned Heme Onc Consulted GI Signed Off SOB/Chest Tightness- Resolved Patient was seen, examined, and discussed w/ attending Dr. Magali Rubio DO PGY1 - Internal Medicine Guyline Operator - Medicine Progress Note <Crys De Los Santso - Last Filed: 12/07/18 17:00> Objective - Vital Signs/Intake and Output Vital Signs (last 24 hours): Temp Pulse Resp BP Pulse Ox 98.4 F 69 18 106/68 99 12/07/18 16:27 12/07/18 16:27 12/07/18 16:27 12/07/18 16:27 12/07/18 16:27 Intake and Output: 12/07/18 12/07/18 06:59 18:59 Intake Total 1080 Output Total 1690 Balance -610 - Medications Medications: Current Medications Acetaminophen (Tylenol 325mg Tab) 650 mg PO Q6H PRN PRN Reason: Pain, Mild (1-3) Benzocaine/Menthol (Cepacol Sore Throat) 1 amy MT Q2H PRN PRN Reason: Sore Throat Last Admin: 12/05/18 15:21 Dose: 1 amy Heparin Sodium (Porcine) (Heparin) 5,000 units SC Q8 ZEFERINO; Protocol Last Admin: 12/07/18 15:37 Dose: Not Given Ketorolac Tromethamine (Toradol) 15 mg IVP Q6H ZEFERINO Last Admin: 12/07/18 16:57 Dose: Not Given Ondansetron HCl (Zofran Inj) 4 mg IVP Q6H PRN PRN Reason: Nausea/Vomiting Last Admin: 12/04/18 13:34 Dose: 4 mg Oxycodone/Acetaminophen (Percocet 5/325 Mg Tab) 1 tab PO Q4H PRN PRN Reason: Pain, moderate (4-7) Stop: 12/10/18 07:28 Pantoprazole Sodium (Protonix Ec Tab) 40 mg PO 0600 ZEFERINO Last Admin: 12/07/18 05:06 Dose: 40 mg - Labs Labs: 12/07/18 06:00 12/07/18 06:00 PT 12.8 SECONDS (9.4-12.5) H 12/04/18 06:00 INR 1.13 12/04/18 06:00 APTT 31.8 Seconds (26.9-38.3) 12/04/18 06:00 Attending/Attestation - Attestation I have personally seen and examined this patient.: Yes I have fully participated in the care of the patient.: Yes I have reviewed all pertinent clinical information, including history, physical exam and plan: Yes Notes (Text): 12/07/18 16:59 Attending note; Patient seen and examined with resident. Translation used. Patient's by the bedside. Status post colon resection and colostomy and ELDON drain placement. Patient is sitting in the chair. Currently on liquid diet. Denies any nausea, vomiting. Patient is a 48 year old French Speaking female with past medical history significant for benign thyroid mass s/p biopsy that presented to the emergency room with abdominal pain and constipation. 1. Large bowel obstruction; status post laparotomy, colon resection and colostomy. Postop day #2. Patient has ELDON drain in place. About 100 cc of serosanguineous fluid. Monitor closely. Continue incentive spirometry. Out of bed to chair as tolerated. Started on clear liquid diet by surgery. Colostomy has liquid stool. Pathology results pending. Oncology evaluation appreciated. 2. Abdominal pain; improving. Continue IV Toradol as needed. 3. Nausea; resolved. Continue Zofran as needed. 4. GI prophylaxis with Protonix. 5. DVT prophylaxis with heparin. Diagnosis, treatment plan discussed with patient and patient's in detail via social science research assistant.
[2018-12-07] MEDS: Pantoprazole 40 mg EC Tab PO SCH (05:06)
[2018-12-07 06:24] LABS: BASO # 0.02 K/mm3 (0.0-2.0); BASO % 0.5 % (0.0-3.0); EOS # 0.2 (0.0-0.7); EOS % 4.4 % (1.5-5.0); HEMOGLOBIN 9.1 g/dL (12.0-16.0); LYMPH # 1.6 (1.2-3.4); LYMPH % 37.5 % (22.0-35.0); MEAN CELL VOLUME 84.8 fl (80.0-105.0); MEAN CORPUSCULAR HEMOGLOBIN 26.6 pg (25.0-35.0); MEAN CORPUSCULAR HGB CONC 31.4 g/dl (31.0-37.0); MEAN PLATELET VOLUME 9.4 fl (7.0-11.0); MONO # 0.3 (0.1-0.6); MONO % 7.8 % (1.0-6.0); RBC 3.42 10^6/uL (3.5-6.1); RED CELL DISTRIBUTION WIDTH 13.3 % (11.5-14.5); WHITE BLOOD COUNT 4.4 10^3/uL (4.5-11.0)
--- NOTE | 2018-12-07 07:24 | CP.PCM.PN ---
<Lm Nolan - Last Filed: 12/07/18 07:21> Subjective - Date & Time of Evaluation Date of Evaluation: 12/07/18 Time of Evaluation: 07:21 - Subjective Subjective: SURGERY NOTE FOR DR. MEDINA 48F seen and examined at bedside. Patient states pain is controlled with medications, denies nausea, vomiting, fevers or chills. She has been tolerating soft diet and having ostomy output. Objective - Vital Signs/Intake and Output Vital Signs (last 24 hours): Temp Pulse Resp BP Pulse Ox 99.9 F H 82 18 103/67 96 12/06/18 08:08 12/06/18 16:08 12/06/18 16:08 12/06/18 16:08 12/06/18 16:08 Intake and Output: 12/07/18 12/07/18 06:59 18:59 Intake Total 1080 Output Total 1690 Balance -610 - Medications Medications: Current Medications Benzocaine/Menthol (Cepacol Sore Throat) 1 amy MT Q2H PRN PRN Reason: Sore Throat Last Admin: 12/05/18 15:21 Dose: 1 amy Heparin Sodium (Porcine) (Heparin) 5,000 units SC Q8 ZEFERINO; Protocol Last Admin: 12/07/18 05:06 Dose: 5,000 units Ketorolac Tromethamine (Toradol) 15 mg IVP Q6H [facility] Last Admin: 12/07/18 03:36 Dose: Not Given Morphine Sulfate (Morphine) 4 mg IVP Q4H PRN PRN Reason: Pain, moderate (4-7) Last Admin: 12/06/18 20:09 Dose: 4 mg Ondansetron HCl (Zofran Inj) 4 mg IVP Q6H PRN PRN Reason: Nausea/Vomiting Last Admin: 12/04/18 13:34 Dose: 4 mg Pantoprazole Sodium (Protonix Ec Tab) 40 mg PO 0600 ZEFERINO Last Admin: 12/07/18 05:06 Dose: 40 mg - Labs Labs: 12/07/18 06:00 12/06/18 06:00 PT 12.8 SECONDS (9.4-12.5) H 12/04/18 06:00 INR 1.13 12/04/18 06:00 APTT 31.8 Seconds (26.9-38.3) 12/04/18 06:00 - Constitutional Appears: Non-toxic, No Acute Distress - Respiratory Exam Respiratory Exam: Clear to Ausculation Bilateral, NORMAL BREATHING PATTERN - Cardiovascular Exam Cardiovascular Exam: REGULAR RHYTHM, +S1, +S2 - GI/Abdominal Exam GI & Abdominal Exam: Soft, Tenderness. absent: Distended, Firm, Guarding, Rigid, Rebound Additional comments: dressing CDI Ostomy pink and patent with ostomy output - Extremities Exam Extremities Exam: absent: Pedal Edema, Tenderness - Neurological Exam Neurological Exam: Alert, Awake - Skin Skin Exam: Dry, Intact, Normal Color, Warm Assessment and Plan - Assessment and Plan (Free Text) Assessment: 48F s/p hartmanns procedure POD#3 Plan: - Continue diet - Monitor ostomy and martha output - Continue OOB and ambulation - f/u pathology, oncology team recs Further recs discuss with Dr. Adam Nolan, PGY3 <Kiran Medina - Last Filed: 12/07/18 15:50> Objective - Vital Signs/Intake and Output Vital Signs (last 24 hours): Temp Pulse Resp BP Pulse Ox 97.7 F 60 20 101/63 98 12/07/18 06:00 12/07/18 06:00 12/07/18 06:00 12/07/18 06:00 12/07/18 06:00 Intake and Output: 12/07/18 12/07/18 06:59 18:59 Intake Total 1080 Output Total 1690 Balance -610 - Medications Medications: Current Medications Acetaminophen (Tylenol 325mg Tab) 650 mg PO Q6H PRN PRN Reason: Pain, Mild (1-3) Benzocaine/Menthol (Cepacol Sore Throat) 1 amy MT Q2H PRN PRN Reason: Sore Throat Last Admin: 12/05/18 15:21 Dose: 1 amy Heparin Sodium (Porcine) (Heparin) 5,000 units SC Q8 ZEFERINO; Protocol Last Admin: 12/07/18 15:37 Dose: Not Given Ketorolac Tromethamine (Toradol) 15 mg IVP Q6H ZEFERINO Last Admin: 12/07/18 11:08 Dose: 15 mg Ondansetron HCl (Zofran Inj) 4 mg IVP Q6H PRN PRN Reason: Nausea/Vomiting Last Admin: 12/04/18 13:34 Dose: 4 mg Oxycodone/Acetaminophen (Percocet 5/325 Mg Tab) 1 tab PO Q4H PRN PRN Reason: Pain, moderate (4-7) Stop: 12/10/18 07:28 Pantoprazole Sodium (Protonix Ec Tab) 40 mg PO 0600 ZEFERINO Last Admin: 12/07/18 05:06 Dose: 40 mg - Labs Labs: 12/07/18 06:00 12/07/18 06:00 PT 12.8 SECONDS (9.4-12.5) H 12/04/18 06:00 INR 1.13 12/04/18 06:00 APTT 31.8 Seconds (26.9-38.3) 12/04/18 06:00 Assessment and Plan - Assessment and Plan (Free Text) Plan: Patient was seen, evaluated and examined by me at the bedside. I agree with assessment and plan as stated in the resident's note.
[2018-12-07] MEDS ORDERED: Oxycodone/Acetaminophen 5/325 mg Tab PO PRN (07:27)
[2018-12-07 07:34] LABS: ALBUMIN 2.6 g/dL (3.0-4.8); ALT/SGPT 20 U/L (7-56); AST/SGOT 18 U/L (14-36); BLOOD UREA NITROGEN 17 mg/dL (7-21); CALCIUM 8.1 mg/dL (8.4-10.5); GFR NON-AFRICAN AMERICAN > 60
--- NOTE | 2018-12-07 10:40 | CP.PCM.PN ---
<Nicholas Rubio - Last Filed: 12/07/18 14:08> Subjective - Date & Time of Evaluation Date of Evaluation: 12/07/18 Time of Evaluation: 10:37 - Subjective Subjective: Patient seen and examined w/ portuguese manager motor at bedside; patient reports she only feels weak this AM; mild abd pain. Tolerating diet well; Patient was told that she will continue to feel tired for a few days post operatively and assured that this is normal Continued to encourage ambulation and incentive spirometer use Notified that we are pending pathology results at this time Patient notified she has an appt made on December 18 at 2pm w/ Dr. Oropeza at [facility] where we will be able to follow up pathology results. Objective - Vital Signs/Intake and Output Vital Signs (last 24 hours): Temp Pulse Resp BP Pulse Ox 97.7 F 60 20 101/63 98 12/07/18 06:00 12/07/18 06:00 12/07/18 06:00 12/07/18 06:00 12/07/18 06:00 Intake and Output: 12/07/18 12/07/18 06:59 18:59 Intake Total 1080 Output Total 1690 Balance -610 - Medications Medications: Current Medications Acetaminophen (Tylenol 325mg Tab) 650 mg PO Q6H PRN PRN Reason: Pain, Mild (1-3) Benzocaine/Menthol (Cepacol Sore Throat) 1 amy MT Q2H PRN PRN Reason: Sore Throat Last Admin: 12/05/18 15:21 Dose: 1 amy Heparin Sodium (Porcine) (Heparin) 5,000 units SC Q8 ZEFERINO; Protocol Last Admin: 12/07/18 05:06 Dose: 5,000 units Ketorolac Tromethamine (Toradol) 15 mg IVP Q6H ZEFERINO Last Admin: 12/07/18 03:36 Dose: Not Given Ondansetron HCl (Zofran Inj) 4 mg IVP Q6H PRN PRN Reason: Nausea/Vomiting Last Admin: 12/04/18 13:34 Dose: 4 mg Oxycodone/Acetaminophen (Percocet 5/325 Mg Tab) 1 tab PO Q4H PRN PRN Reason: Pain, moderate (4-7) Stop: 12/10/18 07:28 Pantoprazole Sodium (Protonix Ec Tab) 40 mg PO 0600 ZEFERINO Last Admin: 12/07/18 05:06 Dose: 40 mg - Labs Labs: 12/07/18 06:00 12/07/18 06:00 PT 12.8 SECONDS (9.4-12.5) H 12/04/18 06:00 INR 1.13 12/04/18 06:00 APTT 31.8 Seconds (26.9-38.3) 12/04/18 06:00 - Constitutional Appears: Well, Non-toxic, No Acute Distress - Head Exam Head Exam: ATRAUMATIC, NORMOCEPHALIC - Eye Exam Eye Exam: EOMI, Normal appearance, PERRL. absent: Scleral icterus - Respiratory Exam Respiratory Exam: Clear to Ausculation Bilateral, NORMAL BREATHING PATTERN - Cardiovascular Exam Cardiovascular Exam: RRR. absent: Murmur - GI/Abdominal Exam GI & Abdominal Exam: Bowel sounds present Additional comments: Abdomen w/ midline dressing in place; dressings changed this AM; dressing CDI Left sided ostomy w/ stool output R sided ELDON drain w/ serosanguinous drainage Mildly tender to palpation - Extremities Exam Extremities Exam: Normal Capillary Refill. absent: Pedal Edema - Neurological Exam Neurological Exam: Alert, Awake, Oriented x3 Assessment and Plan - Assessment and Plan (Free Text) Assessment: 48F w/ PMH thyroid mass presented to [facility] ED on 12/01 w/ CC of diffuse abdominal pain and constipation x2 days prior to arrival s/p L hemicolectomy w/ ostomy on 12/04 Plan: Large Bowel Obstruction 2/2 Colonic Mass s/p L hemicolectomy w/ ostomy and Mass resection on 12/04 - POD#3 12/01 0016 - CTAP w/ IV/PO Contrast - 11mm liver hypodensity not seen in 2018 study; Moderate constipation in the right side of the colon, focal area of mural thickening in descending and sigmoid colon- colitis vs neoplastic lesion 12/01 1621 - Abd XR - No evidence of free air. Distension of colon presumably up to the level of the previously described focal area of mural thickening at the junction of the descending and sigmoid colon. 12/04 - CTAP w/o PO CON - Large bowel obstruction secondary to abrupt transition at the descending/sigmoid colon junction where there is an area of irregular thickening, neoplasm suspected. POD#3 - OOB to chair, ambulating, IS use, advanced to full diet this AM; tolerating diet well Analgesia as per surgery Heme Onc Consulted given colonic mass and to establish care Surgery is following, appreciate reccs GI Signed Off Colonic Mass Path Pending 12/06 - CTAP - No evidence of tumor above diaphgram, Incompletely characterized subcentimeter mass in the right hepatic lobe CEA wnl - 2.7 Liver Lesion Will need IR guided biopsy to confirm mets once colonic mass path returned Heme Onc Consulted GI Signed Off Anemia - Normocytic - Asymptomatic Hb 9.1 ; Anemia stabilizing - Dilutional cont. monitoring Dispo: Continue monitoring on med/surg. Upon DC patient reports she plans to stay in [place] for 3 years; She will follow up on December 18 at 2pm w/ Dr. Oropeza at [facility] once discharged Patient was seen, examined, and discussed w/ attending Dr. Magali Rubio DO PGY1 - Internal Medicine Drilling Machine Operator - Medicine Progress Note <Crys De Los Santos - Last Filed: 12/07/18 17:04> Objective - Vital Signs/Intake and Output Vital Signs (last 24 hours): Temp Pulse Resp BP Pulse Ox 98.4 F 69 18 106/68 99 12/07/18 16:27 12/07/18 16:27 12/07/18 16:27 12/07/18 16:27 12/07/18 16:27 Intake and Output: 12/07/18 12/07/18 06:59 18:59 Intake Total 1080 Output Total 1690 Balance -610 - Medications Medications: Current Medications Acetaminophen (Tylenol 325mg Tab) 650 mg PO Q6H PRN PRN Reason: Pain, Mild (1-3) Benzocaine/Menthol (Cepacol Sore Throat) 1 amy MT Q2H PRN PRN Reason: Sore Throat Last Admin: 12/05/18 15:21 Dose: 1 amy Heparin Sodium (Porcine) (Heparin) 5,000 units SC Q8 ZEFERINO; Protocol Last Admin: 12/07/18 15:37 Dose: Not Given Ketorolac Tromethamine (Toradol) 15 mg IVP Q6H ZEFERINO Last Admin: 12/07/18 16:57 Dose: Not Given Ondansetron HCl (Zofran Inj) 4 mg IVP Q6H PRN PRN Reason: Nausea/Vomiting Last Admin: 12/04/18 13:34 Dose: 4 mg Oxycodone/Acetaminophen (Percocet 5/325 Mg Tab) 1 tab PO Q4H PRN PRN Reason: Pain, moderate (4-7) Stop: 12/10/18 07:28 Pantoprazole Sodium (Protonix Ec Tab) 40 mg PO 0600 ZEFERINO Last Admin: 12/07/18 05:06 Dose: 40 mg - Labs Labs: 12/07/18 06:00 12/07/18 06:00 PT 12.8 SECONDS (9.4-12.5) H 12/04/18 06:00 INR 1.13 12/04/18 06:00 APTT 31.8 Seconds (26.9-38.3) 12/04/18 06:00 Attending/Attestation - Attestation I have personally seen and examined this patient.: Yes I have fully participated in the care of the patient.: Yes I have reviewed all pertinent clinical information, including history, physical exam and plan: Yes Notes (Text): 12/07/18 17:01 Attending note; Patient seen and examined with resident. Patient is sitting in the chair. Patient is walking without any difficulty. Translation used. Patient's by the bedside. Status post colon resection and colostomy and ELDON drain placement. Diet advanced today. Patient is a 48 year old [place] Speaking female with past medical history significant for benign thyroid mass s/p biopsy that presented to the emergency room with abdominal pain and constipation. 1. Large bowel obstruction; status post laparotomy, colon resection and colostomy. Postop day #3. Patient has ELDON drain in place. About 100 cc of serosanguineous fluid. Currently on regular diet. Pathology results pending. Case discussed with oncologist in detail. CT scan showed 1.1 cm low-density lesion in the right hepatic lobe. we will get hepatobiliary surgeon consult. CT chest is negative for metastatic disease. 2. Abdominal pain; improving. Continue IV Toradol as needed. 3. Nausea; resolved. Continue Zofran as needed. 4. GI prophylaxis with Protonix. 5. DVT prophylaxis with heparin. Patient will be referred to [facility] upon discharge. shelter case manager evaluation appreciated. Medicaid application in process. Patient will need close follow-up with oncology and surgery upon discharge for further treatment options. Diagnosis, treatment plan discussed with patient and patient's in detail via display coordinator. 12/07/18 17:03
--- NOTE | 2018-12-07 21:15 | CP.PCM.CON ---
History of Present Illness - History of Present Illness History of Present Illness: HPB Surgery: Dr Luo Pt is a 48F who presented ~1 week ago with abdominal pain and progressive distension, found to have large bowel obstruction due to a large left sided colonic mass s/p hemicolectomy. Resultant path adenocarcinoma T3N2, with noted isolated liver lesion. Consulted for evaluation of solitary liver lesion. Information obtained via EMR and via [place] Electronics Maintenance Technician phone. Past medical history: Thyroid lesion s/p biopsy - reports was benign Past surgical history: left hemicolectomy Family history: Denies hematologic and oncologic problems Social history: Denies tobacco, alcohol, and illicit drug use. Review of Systems - Review of Systems All systems: reviewed and no additional remarkable complaints except (as per hpi) Past Patient History - Infectious Disease Hx of Infectious Diseases: None - Tetanus Immunizations Tetanus Immunization: Unknown - Past Social History Smoking Status: Never Smoked - CARDIAC Hx Cardiac Disorders: No - PULMONARY Hx Respiratory Disorders: No - NEUROLOGICAL Hx Neurological Disorder: No - HEENT Hx HEENT Problems: No - RENAL Hx Chronic Kidney Disease: No - ENDOCRINE/METABOLIC Hx Endocrine Disorders: Yes Other/Comment: THYROID MASS - HEMATOLOGICAL/ONCOLOGICAL Hx Blood Transfusions: No - INTEGUMENTARY Hx Dermatological Problems: No - MUSCULOSKELETAL/RHEUMATOLOGICAL Hx Musculoskeletal Disorders: No - GASTROINTESTINAL Hx Gastrointestinal Disorders: No - GENITOURINARY/GYNECOLOGICAL Hx Genitourinary Disorders: No - PSYCHIATRIC Hx Psychophysiologic Disorder: No - SURGICAL HISTORY Hx Surgeries: No - ANESTHESIA Hx Anesthesia Reactions: No Hx Malignant Hyperthermia: No Meds Home Medications: Home Medication List Medication Instructions Recorded Confirmed Type oxyCODONE/Acetaminophen [Percocet 1 tab PO Q4H PRN 2 Days #8 tab 12/07/18 Rx 5/325 mg Tab] Allergies/Adverse Reactions: Allergies Allergy/AdvReac Type Severity Reaction Status Date / Time No Known Allergies Allergy Verified 12/01/18 00:02 - Medications Medications: Current Medications Acetaminophen (Tylenol 325mg Tab) 650 mg PO Q6H PRN PRN Reason: Pain, Mild (1-3) Benzocaine/Menthol (Cepacol Sore Throat) 1 amy MT Q2H PRN PRN Reason: Sore Throat Last Admin: 12/05/18 15:21 Dose: 1 amy Heparin Sodium (Porcine) (Heparin) 5,000 units SC Q8 ZEFERINO; Protocol Last Admin: 12/07/18 15:37 Dose: Not Given Ketorolac Tromethamine (Toradol) 15 mg IVP Q6H ZEFERINO Last Admin: 12/07/18 16:57 Dose: Not Given Ondansetron HCl (Zofran Inj) 4 mg IVP Q6H PRN PRN Reason: Nausea/Vomiting Last Admin: 12/04/18 13:34 Dose: 4 mg Oxycodone/Acetaminophen (Percocet 5/325 Mg Tab) 1 tab PO Q4H PRN PRN Reason: Pain, moderate (4-7) Stop: 12/10/18 07:28 Pantoprazole Sodium (Protonix Ec Tab) 40 mg PO 0600 ZEFERINO Last Admin: 12/07/18 05:06 Dose: 40 mg Physical Exam - Constitutional Appears: Non-toxic, No Acute Distress - Head Exam Head Exam: NORMOCEPHALIC - Eye Exam Eye Exam: absent: Scleral icterus - ENT Exam ENT Exam: Mucous Membranes Moist - Respiratory Exam Respiratory Exam: absent: Respiratory Distress - Cardiovascular Exam Cardiovascular Exam: REGULAR RHYTHM. absent: Tachycardia - GI/Abdominal Exam GI & Abdominal Exam: Soft, Tenderness (post-surgical and appropriate) Additional comments: ostomy pink, viable, with stool output ELDON serosanguinous with iminimal drainage Results - Vital Signs Recent Vital Signs: Last Vital Signs Temp 98.4 F 12/07/18 16:27 Pulse 69 12/07/18 16:27 Resp 18 12/07/18 16:27 BP 106/68 12/07/18 16:27 Pulse Ox 99 12/07/18 16:27 - Labs Result Diagrams: 12/07/18 06:00 12/07/18 06:00 Labs: Laboratory Results - last 24 hr 12/07/18 12/07/18 06:00 06:00 WBC 4.4 L D RBC 3.42 L Hgb 9.1 L Hct 29.0 L MCV 84.8 MCH 26.6 MCHC 31.4 RDW 13.3 Plt Count 196 MPV 9.4 Neut % (Auto) 49.8 L Lymph % (Auto) 37.5 H Carbon % (Auto) 7.8 H Eos % (Auto) 4.4 Baso % (Auto) 0.5 Lymph # (Auto) 1.6 Carbon # (Auto) 0.3 Eos # (Auto) 0.2 Baso # (Auto) 0.02 Absolute Neuts (auto) 2.17 Sodium 140 Potassium 4.1 Chloride 106 Carbon Dioxide 30 Anion Gap 8 L BUN 17 Creatinine 0.7 Est GFR ( Amer) > 60 Est GFR (Non-Af Amer) > 60 Random Glucose 92 Calcium 8.1 L Phosphorus 3.2 Magnesium 2.1 Total Bilirubin 0.2 AST 18 ALT 20 Alkaline Phosphatase 44 Total Protein 5.3 L Albumin 2.6 L Globulin 2.6 Albumin/Globulin Ratio 1.0 L Assessment & Plan - Assessment and Plan (Free Text) Assessment: 48F with adenocarcinoma of colon and possible isolated liver metastasis Plan: pt needs CT abd with LIVER PROTOCOL to better evaluate this lesion given location and singularity, pt would be a good candidate for laparoscopic resection this would require transfer to [facility] where we possess equipment necessary for procedure Will obtain CT first and plan for transfer/surgery after discussion with associated care teams and surgical attending thank you for involving us in care of this patient d/w Dr Kimble, PGY4
--- NOTE | 2018-12-07 23:52 | CP.PCM.PN ---
Subjective - Date & Time of Evaluation Date of Evaluation: 12/07/18 Time of Evaluation: 17:00 - Subjective Subjective: No complaints. Objective - Vital Signs/Intake and Output Vital Signs (last 24 hours): Temp Pulse Resp BP Pulse Ox 98.4 F 69 18 106/68 99 12/07/18 16:27 12/07/18 16:27 12/07/18 16:27 12/07/18 16:27 12/07/18 16:27 Intake and Output: 12/07/18 12/08/18 18:59 06:59 Intake Total 1200 Output Total 90 Balance 1110 - Medications Medications: Current Medications Acetaminophen (Tylenol 325mg Tab) 650 mg PO Q6H PRN PRN Reason: Pain, Mild (1-3) Benzocaine/Menthol (Cepacol Sore Throat) 1 amy MT Q2H PRN PRN Reason: Sore Throat Last Admin: 12/05/18 15:21 Dose: 1 amy Heparin Sodium (Porcine) (Heparin) 5,000 units SC Q8 ZEFERINO; Protocol Last Admin: 12/07/18 21:12 Dose: 5,000 units Ketorolac Tromethamine (Toradol) 15 mg IVP Q6H ZEFERINO Last Admin: 12/07/18 21:46 Dose: 15 mg Ondansetron HCl (Zofran Inj) 4 mg IVP Q6H PRN PRN Reason: Nausea/Vomiting Last Admin: 12/04/18 13:34 Dose: 4 mg Oxycodone/Acetaminophen (Percocet 5/325 Mg Tab) 1 tab PO Q4H PRN PRN Reason: Pain, moderate (4-7) Stop: 12/10/18 07:28 Pantoprazole Sodium (Protonix Ec Tab) 40 mg PO 0600 [facility] Last Admin: 12/07/18 05:06 Dose: 40 mg - Labs Labs: 12/07/18 06:00 12/07/18 06:00 PT 12.8 SECONDS (9.4-12.5) H 12/04/18 06:00 INR 1.13 12/04/18 06:00 APTT 31.8 Seconds (26.9-38.3) 12/04/18 06:00 - Head Exam Head Exam: ATRAUMATIC - Eye Exam Eye Exam: Normal appearance - ENT Exam ENT Exam: Mucous Membranes Dry - Respiratory Exam Respiratory Exam: NORMAL BREATHING PATTERN - Cardiovascular Exam Cardiovascular Exam: +S1, +S2 - GI/Abdominal Exam GI & Abdominal Exam: Normal Bowel Sounds Assessment and Plan (1) Colon cancer Assessment & Plan: obstructing mass s/p hemicolectomy - pT3N2b isolated liver lesion ? metastatic disease - recommend hepatobiliary surgery evaluation for resectability determination outpatient chemotherapy Status: Acute (2) Anemia Assessment & Plan: surgical blood loss retic count, b12, folate, ferritin to further characterize Status: Acute
[2018-12-08] MEDS: Pantoprazole 40 mg EC Tab PO SCH (05:26)
[2018-12-08 07:18] LABS: ALBUMIN 2.9 g/dL (3.0-4.8); ALT/SGPT 24 U/L (7-56); AST/SGOT 35 U/L (14-36); BLOOD UREA NITROGEN 17 mg/dL (7-21); CALCIUM 8.5 mg/dL (8.4-10.5); GFR NON-AFRICAN AMERICAN > 60
--- NOTE | 2018-12-08 09:05 | CP.PCM.PN ---
Subjective - Date & Time of Evaluation Date of Evaluation: 12/08/18 Time of Evaluation: 09:01 - Subjective Subjective: SURGERY NOTE FOR DR. SORIANO 48F seen and examined at bedside. Patient pain controlled, denies nausea to vomiting. Ostomy patent. Objective - Vital Signs/Intake and Output Vital Signs (last 24 hours): Temp Pulse Resp BP Pulse Ox 97.4 F L 62 20 114/64 97 12/08/18 04:00 12/08/18 00:00 12/08/18 00:00 12/08/18 00:00 12/08/18 00:00 Intake and Output: 12/08/18 12/08/18 06:59 18:59 Intake Total 1680 Output Total 160 Balance 1520 - Medications Medications: Current Medications Acetaminophen (Tylenol 325mg Tab) 650 mg PO Q6H PRN PRN Reason: Pain, Mild (1-3) Benzocaine/Menthol (Cepacol Sore Throat) 1 amy MT Q2H PRN PRN Reason: Sore Throat Last Admin: 12/05/18 15:21 Dose: 1 amy Heparin Sodium (Porcine) (Heparin) 5,000 units SC Q8 ZEFERINO; Protocol Last Admin: 12/08/18 05:26 Dose: 5,000 units Ketorolac Tromethamine (Toradol) 15 mg IVP Q6H ZEFERINO Last Admin: 12/08/18 03:00 Dose: 15 mg Ondansetron HCl (Zofran Inj) 4 mg IVP Q6H PRN PRN Reason: Nausea/Vomiting Last Admin: 12/04/18 13:34 Dose: 4 mg Oxycodone/Acetaminophen (Percocet 5/325 Mg Tab) 1 tab PO Q4H PRN PRN Reason: Pain, moderate (4-7) Stop: 12/10/18 07:28 Pantoprazole Sodium (Protonix Ec Tab) 40 mg PO 0600 [facility] Last Admin: 12/08/18 05:26 Dose: 40 mg - Labs Labs: 12/07/18 06:00 12/08/18 06:10 PT 12.8 SECONDS (9.4-12.5) H 12/04/18 06:00 INR 1.13 12/04/18 06:00 APTT 31.8 Seconds (26.9-38.3) 12/04/18 06:00 - Constitutional Appears: Non-toxic, No Acute Distress - Respiratory Exam Respiratory Exam: NORMAL BREATHING PATTERN - Cardiovascular Exam Cardiovascular Exam: REGULAR RHYTHM, +S1, +S2 - GI/Abdominal Exam GI & Abdominal Exam: Soft. absent: Distended, Firm, Guarding, Rigid, Tenderness, Rebound Additional comments: ostomy pink and patent - Neurological Exam Neurological Exam: Alert, Awake - Skin Skin Exam: Dry, Intact, Normal Color, Warm Assessment and Plan - Assessment and Plan (Free Text) Assessment: 48F s/p theo's procedure POD#4 for large bowel obstruction 2/2 cancerous sigmoid mass Adenocarcinoma, 02/07 positive lymph node, T3N2 CT: liver lesion Plan: - monitor ostomy - pain control - Liver surgery consulte - Pending Liver protocol CT - Oncology on board also Further recs discuss with Dr. Adam Nolan, PGY3
[2018-12-08 09:13] LABS: BASO # 0.02 K/mm3 (0.0-2.0); BASO % 0.5 % (0.0-3.0); EOS # 0.3 (0.0-0.7); EOS % 7.9 % (1.5-5.0); HEMOGLOBIN 9.5 g/dL (12.0-16.0); LYMPH # 1.4 (1.2-3.4); LYMPH % 36.7 % (22.0-35.0); MEAN CELL VOLUME 84.1 fl (80.0-105.0); MEAN CORPUSCULAR HEMOGLOBIN 26.9 pg (25.0-35.0); MEAN PLATELET VOLUME 9.7 fl (7.0-11.0); MONO # 0.3 (0.1-0.6); MONO % 8.5 % (1.0-6.0); RBC 3.53 10^6/uL (3.5-6.1); RED CELL DISTRIBUTION WIDTH 13.2 % (11.5-14.5); WHITE BLOOD COUNT 3.9 10^3/uL (4.5-11.0)
--- NOTE | 2018-12-08 13:24 | CP.PCM.PN ---
<Nicholas Rubio - Last Filed: 12/08/18 12:52> Subjective - Date & Time of Evaluation Date of Evaluation: 12/08/18 Time of Evaluation: 12:52 - Subjective Subjective: Nicholas Rubio DO PGY1 - Medicine Progress Note Patient was seen and examined at bedside this morning Kyrgyz interpreter deaf and present at bedside Spoke w/ patient regarding plans moving forwards in terms of liver lesion. Notified patient that hepatobiliary surgery is consulted and that plans moving forward will be discussed between heme/onc and hepatobiliary surgery. Notified the patient that she will have a CT scan of the abdomen performed to further evaluate lesion and decisions will be made post radiology reading. Path results reviewed w/ patient; notified that she will need ongoing CA treatment as per Heme/Onc Patient only complaining of mild abdominal pain this AM and decreased ostomy output Abdominal pain is still present however mild at this time; she is ambulating well; urinating without issue. Denies chest pain, sob, n/v. Objective - Vital Signs/Intake and Output Vital Signs (last 24 hours): Temp Pulse Resp BP Pulse Ox 97.7 F 63 17 100/65 97 12/08/18 06:00 12/08/18 06:00 12/08/18 06:00 12/08/18 06:00 12/08/18 06:00 Intake and Output: 12/08/18 12/08/18 06:59 18:59 Intake Total 1680 Output Total 160 Balance 1520 - Medications Medications: Current Medications Acetaminophen (Tylenol 325mg Tab) 650 mg PO Q6H PRN PRN Reason: Pain, Mild (1-3) Benzocaine/Menthol (Cepacol Sore Throat) 1 amy MT Q2H PRN PRN Reason: Sore Throat Last Admin: 12/05/18 15:21 Dose: 1 amy Heparin Sodium (Porcine) (Heparin) 5,000 units SC Q8 ZEFERINO; Protocol Last Admin: 12/08/18 05:26 Dose: 5,000 units Ketorolac Tromethamine (Toradol) 15 mg IVP Q6H ZEFERINO Last Admin: 12/08/18 11:26 Dose: Not Given Ondansetron HCl (Zofran Inj) 4 mg IVP Q6H PRN PRN Reason: Nausea/Vomiting Last Admin: 12/04/18 13:34 Dose: 4 mg Oxycodone/Acetaminophen (Percocet 5/325 Mg Tab) 1 tab PO Q4H PRN PRN Reason: Pain, moderate (4-7) Stop: 12/10/18 07:28 Pantoprazole Sodium (Protonix Ec Tab) 40 mg PO 0600 [facility] Last Admin: 12/08/18 05:26 Dose: 40 mg - Labs Labs: 12/08/18 09:05 12/08/18 06:10 PT 12.8 SECONDS (9.4-12.5) H 12/04/18 06:00 INR 1.13 12/04/18 06:00 APTT 31.8 Seconds (26.9-38.3) 12/04/18 06:00 - Constitutional Appears: Well, Non-toxic, No Acute Distress - Head Exam Head Exam: ATRAUMATIC, NORMOCEPHALIC - Eye Exam Eye Exam: EOMI, Normal appearance, PERRL. absent: Scleral icterus - Respiratory Exam Respiratory Exam: Clear to Ausculation Bilateral, NORMAL BREATHING PATTERN - Cardiovascular Exam Cardiovascular Exam: RRR. absent: Murmur - GI/Abdominal Exam GI & Abdominal Exam: Bowel sounds present Additional comments: Midline dressing in place - CDI Ostomy w/ appliance - Left sided - minimal liquid drainage; ostomy pink RLQ w/ ELDON drain - Extremities Exam Extremities Exam: Normal Capillary Refill. absent: Pedal Edema - Neurological Exam Neurological Exam: Alert, Awake, Oriented x3 Assessment and Plan - Assessment and Plan (Free Text) Assessment: 48F w/ PMH thyroid mass presented to [facility] ED on 12/01 w/ CC of diffuse abdominal pain and constipation x2 days prior to arrival s/p L hemicolectomy w/ ostomy on 12/04 Plan: Large Bowel Obstruction 2/2 Colonic Mass s/p L hemicolectomy w/ ostomy and Mass resection on 12/04 - POD#4 12/01 0016 - CTAP w/ IV/PO Contrast - 11mm liver hypodensity not seen in 2018 study; Moderate constipation in the right side of the colon, focal area of mural thickening in descending and sigmoid colon- colitis vs neoplastic lesion 12/01 1621 - Abd XR - No evidence of free air. Distension of colon presumably up to the level of the previously described focal area of mural thickening at the junction of the descending and sigmoid colon. 12/04 - CTAP w/o PO CON - Large bowel obstruction secondary to abrupt transition at the descending/sigmoid colon junction where there is an area of irregular thickening, neoplasm suspected. POD#4 - Patient is OOB to chair, ambulating, using the IS, tolerating diet well; Analgesia as per surgery Gen Surgery is following, appreciate reccs GI Signed Off Colonic Mass - Adenocarcinoma of the Colon - Stage T3N2b 12/06 - CTAP - No evidence of tumor above diaphgram, Incompletely characterized subcentimeter mass in the right hepatic lobe Further treatment w/ chemo-rad as per heme onc to be determined shortly CEA wnl - 2.[address] ABD w/ Liver protocol / triple phase CT for further eval Will determine possibility of resection w/ Hepatobiliary surgery Dr. Luo - Hepatobiliary Surgery - Following Meng Hernandez Heme Onc Following GI Signed Off Anemia - Normocytic - Asymptomatic - Improving Hb trending up; most likely 2/2 intraoperative blood loss Will admin Venofer x1 Cont. monitoring Dispo: Continue monitoring on med/surg. Upon DC patient reports she plans to stay in [place] for 3 years; She will follow up on December 18 at 2pm w/ Dr. Oropeza at [facility] once discharged PT recommends DC home once medically stable w/ outpt PT 3-5x / week Patient was seen, examined, and discussed w/ attending Dr. Magali Rubio DO PGY1 - Internal Medicine Addiction Counselor - Medicine Progress Note <Crys De Los Santos - Last Filed: 12/08/18 17:25> Objective - Vital Signs/Intake and Output Vital Signs (last 24 hours): Temp Pulse Resp BP Pulse Ox 97.7 F 63 17 100/65 97 12/08/18 06:00 12/08/18 06:00 12/08/18 06:00 12/08/18 06:00 12/08/18 06:00 Intake and Output: 12/08/18 12/08/18 06:59 18:59 Intake Total 1680 Output Total 160 Balance 1520 - Medications Medications: Current Medications Acetaminophen (Tylenol 325mg Tab) 650 mg PO Q6H PRN PRN Reason: Pain, Mild (1-3) Benzocaine/Menthol (Cepacol Sore Throat) 1 amy MT Q2H PRN PRN Reason: Sore Throat Last Admin: 12/05/18 15:21 Dose: 1 amy Heparin Sodium (Porcine) (Heparin) 5,000 units SC Q8 ZEFERINO; Protocol Last Admin: 12/08/18 15:38 Dose: 5,000 units Ketorolac Tromethamine (Toradol) 15 mg IVP Q6H ZEFERINO Last Admin: 12/08/18 15:38 Dose: Not Given Ondansetron HCl (Zofran Inj) 4 mg IVP Q6H PRN PRN Reason: Nausea/Vomiting Last Admin: 12/04/18 13:34 Dose: 4 mg Oxycodone/Acetaminophen (Percocet 5/325 Mg Tab) 1 tab PO Q4H PRN PRN Reason: Pain, moderate (4-7) Stop: 12/10/18 07:28 Pantoprazole Sodium (Protonix Ec Tab) 40 mg PO 0600 [facility] Last Admin: 12/08/18 05:26 Dose: 40 mg - Labs Labs: 12/08/18 09:05 12/08/18 06:10 PT 12.8 SECONDS (9.4-12.5) H 12/04/18 06:00 INR 1.13 12/04/18 06:00 APTT 31.8 Seconds (26.9-38.3) 12/04/18 06:00 Attending/Attestation - Attestation I have personally seen and examined this patient.: Yes I have fully participated in the care of the patient.: Yes I have reviewed all pertinent clinical information, including history, physical exam and plan: Yes Notes (Text): 12/08/18 17:21 Attending note; Patient seen and examined with resident. Patient is sitting in the chair. Translation used. Patient's by the bedside. Status post colon resection and colostomy and ELDON drain placement. Patient is complaining of tiredness. Tolerating diet well. No stool output since this morning. Patient is a 48 year old Kyrgyz Speaking female with past medical history significant for benign thyroid mass s/p biopsy that presented to the emergency room with abdominal pain and constipation. 1. Large bowel obstruction; status post laparotomy, colon resection and colostomy. Postop day #4. Patient has ELDON drain in place. Serosanguineous discharge in the drain. Currently on regular diet. Pathology showed moderately differentiated adenocarcinoma with staging of T3 and L2. Diagnosis was discussed with family in detail by oncologist yesterday. Patient was evaluated by hepatobiliary surgeon CT scan showed 1.1 cm low-density lesion in the right hepatic lobe. Triple phase CT ordered to evaluate the liver lesion. CT chest is negative for metastatic disease. 2. Abdominal pain; improving. Continue IV Toradol as needed. 3. Nausea; resolved. resolved.Continue Zofran as needed. 4. GI prophylaxis with Protonix. 5. DVT prophylaxis with heparin. 6. Anemia; started on iron transfusion. Patient will be referred to [facility] upon discharge. 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 Medicaid application in process. Patient will need close follow-up with oncology and surgery upon discharge for further treatment options. Diagnosis, treatment plan discussed with patient and patient's in detail via spanish translator.
--- NOTE | 2018-12-08 13:47 | CT ---
Date of service: 12/08/2018 PROCEDURE: CT Abdomen and Pelvis with and without contrast HISTORY: liver lesion - need 4 phase HCC protocol COMPARISON: 02/12/[address] chest dated 12/06/2018 TECHNIQUE: Contrast dose: Radiation dose: Total exam DLP = 1908.81 mGy-cm. This CT exam was performed using one or more of the following dose reduction techniques: Automated exposure control, adjustment of the mA and/or kV according to patient size, and/or use of iterative reconstruction technique. FINDINGS: LOWER THORAX: Minimal bibasilar pleural effusions with minimal pleural thickening. LIVER: Vague zone of hypodensity in the peripheral right hepatic lobe with enters pursing vessels most likely representing focal fatty infiltration. 8 millimeter hypodensity in the posterior segment right hepatic lobe probably representing a cyst. GALLBLADDER AND BILE DUCTS: Unremarkable. PANCREAS: Unremarkable. No gross lesion or ductal dilatation. SPLEEN: 18 millimeter cyst in the spleen ADRENALS: Unremarkable. No mass. KIDNEYS AND URETERS: Unremarkable. No hydronephrosis. No solid mass. VASCULATURE: Unremarkable. No aortic aneurysm. No aortic atherosclerotic calcification or mural plaque present. BOWEL: Left lower quadrant ostomy. No obstruction. No gross mural thickening. APPENDIX: Normal appendix. PERITONEUM: Pneumoperitoneum. Right lower abdominal drainage catheter. LYMPH NODES: Unremarkable. No enlarged lymph nodes. BLADDER: Air within the urinary bladder lumen; correlate clinically for recent instrumentation. REPRODUCTIVE: Unremarkable. BONES: No acute fracture. OTHER FINDINGS: None. IMPRESSION: Vague zone of hypodensity in the peripheral right hepatic lobe with enters pursing vessels most likely representing focal fatty infiltration. 8 millimeter hypodensity in the posterior segment right hepatic lobe probably representing a cyst. Left lower quadrant ostomy. Pneumoperitoneum with right-sided peritoneal drainage catheter.
[2018-12-09] MEDS: Pantoprazole 40 mg EC Tab PO SCH (05:15)
[2018-12-09 06:46] LABS: BASO # 0.03 K/mm3 (0.0-2.0); BASO % 0.7 % (0.0-3.0); EOS # 0.3 (0.0-0.7); HEMOGLOBIN 10.6 g/dL (12.0-16.0); LYMPH # 1.4 (1.2-3.4); LYMPH % 31.9 % (22.0-35.0); MEAN CELL VOLUME 83.2 fl (80.0-105.0); MEAN CORPUSCULAR HEMOGLOBIN 26.6 pg (25.0-35.0); MEAN CORPUSCULAR HGB CONC 31.9 g/dl (31.0-37.0); MONO # 0.5 (0.1-0.6); MONO % 10.6 % (1.0-6.0); RBC 3.99 10^6/uL (3.5-6.1); RED CELL DISTRIBUTION WIDTH 13.1 % (11.5-14.5); WHITE BLOOD COUNT 4.4 10^3/uL (4.5-11.0)
[2018-12-09 07:12] LABS: ALB/GLOB RATIO 1.1 (1.1-1.8); ALBUMIN 3.3 g/dL (3.0-4.8); ALT/SGPT 31 U/L (7-56); AST/SGOT 61 U/L (14-36); BLOOD UREA NITROGEN 14 mg/dL (7-21); CALCIUM 8.8 mg/dL (8.4-10.5); GFR NON-AFRICAN AMERICAN > 60
--- NOTE | 2018-12-09 07:36 | CP.PCM.PN ---
Subjective - Date & Time of Evaluation Date of Evaluation: 12/09/18 Time of Evaluation: 07:15 - Subjective Subjective: General Surgery Dr. Medina Pt seen and examined @bedside. No acute events overnight. Pt reports minimal abd pain. denies F/C, N/V. scant ostomy output. tolerating diet. Terry 130cc x24hrs serous Objective - Vital Signs/Intake and Output Vital Signs (last 24 hours): Temp Pulse Resp BP Pulse Ox 97.6 F 68 20 106/68 96 12/09/18 00:00 12/09/18 00:00 12/09/18 00:00 12/09/18 00:00 12/09/18 00:00 Intake and Output: 12/09/18 12/09/18 06:59 18:59 Intake Total 1160 Output Total 130 Balance 1030 - Medications Medications: Current Medications Acetaminophen (Tylenol 325mg Tab) 650 mg PO Q6H PRN PRN Reason: Pain, Mild (1-3) Benzocaine/Menthol (Cepacol Sore Throat) 1 amy MT Q2H PRN PRN Reason: Sore Throat Last Admin: 12/05/18 15:21 Dose: 1 amy Heparin Sodium (Porcine) (Heparin) 5,000 units SC Q8 ZEFERINO; Protocol Last Admin: 12/09/18 05:15 Dose: 5,000 units Ketorolac Tromethamine (Toradol) 15 mg IVP Q6H ZEFERINO Last Admin: 12/09/18 03:00 Dose: Not Given Ondansetron HCl (Zofran Inj) 4 mg IVP Q6H PRN PRN Reason: Nausea/Vomiting Last Admin: 12/04/18 13:34 Dose: 4 mg Oxycodone/Acetaminophen (Percocet 5/325 Mg Tab) 1 tab PO Q4H PRN PRN Reason: Pain, moderate (4-7) Stop: 12/10/18 07:28 Pantoprazole Sodium (Protonix Ec Tab) 40 mg PO 0600 [facility] Last Admin: 12/09/18 05:15 Dose: 40 mg - Labs Labs: 12/09/18 06:00 12/09/18 06:00 PT 12.8 SECONDS (9.4-12.5) H 12/04/18 06:00 INR 1.13 12/04/18 06:00 APTT 31.8 Seconds (26.9-38.3) 12/04/18 06:00 - Constitutional Appears: Non-toxic, No Acute Distress - Head Exam Head Exam: NORMAL INSPECTION - Eye Exam Eye Exam: Normal appearance - ENT Exam ENT Exam: Mucous Membranes Moist - Respiratory Exam Respiratory Exam: NORMAL BREATHING PATTERN. absent: Accessory Muscle Use, Respiratory Distress - Cardiovascular Exam Cardiovascular Exam: absent: Bradycardia, Tachycardia - GI/Abdominal Exam GI & Abdominal Exam: Soft. absent: Distended, Firm, Guarding, Rigid, Tenderness, Rebound Additional comments: incisions c/d/i stoma pink, patent, edematous terry present - Extremities Exam Extremities Exam: Normal Inspection - Neurological Exam Neurological Exam: Alert, Awake, Oriented x3 - Psychiatric Exam Psychiatric exam: Normal Affect, Normal Mood - Skin Skin Exam: Dry, Intact, Normal Color, Warm Assessment and Plan - Assessment and Plan (Free Text) Assessment: 48 y/o F s/p Jeramie's procedure POD#5 for LBO 2/2 cancerous sigmoid mass Adenocarcinoma, 02/07 positive lymph node, T3N2 Plan: - monitor ostomy output - cont pain management - f/u HBP recs - f/u Heme/Oncology recs for Chemo - encourage OOB to chair/Amb/IS use - DVT PPx - PT/OT - ostomy training Pt discussed w/ Dr. Adam Dwyer PGY3
--- NOTE | 2018-12-09 09:08 | CP.PCM.PN ---
Subjective - Date & Time of Evaluation Date of Evaluation: 12/09/18 Time of Evaluation: 07:10 - Subjective Subjective: General Surgery Pt seen and examined. No acute events overnight. Ostomy functioning. Pain controlled. Objective - Vital Signs/Intake and Output Vital Signs (last 24 hours): Temp Pulse Resp BP Pulse Ox 98 F 86 20 99/62 L 98 12/09/18 08:16 12/09/18 08:16 12/09/18 08:16 12/09/18 08:16 12/09/18 08:16 Intake and Output: 12/09/18 12/09/18 06:59 18:59 Intake Total 1160 Output Total 130 Balance 1030 - Medications Medications: Current Medications Acetaminophen (Tylenol 325mg Tab) 650 mg PO Q6H PRN PRN Reason: Pain, Mild (1-3) Benzocaine/Menthol (Cepacol Sore Throat) 1 amy MT Q2H PRN PRN Reason: Sore Throat Last Admin: 12/05/18 15:21 Dose: 1 amy Heparin Sodium (Porcine) (Heparin) 5,000 units SC Q8 ZEFERINO; Protocol Last Admin: 12/09/18 05:15 Dose: 5,000 units Ketorolac Tromethamine (Toradol) 15 mg IVP Q6H ZEFERINO Last Admin: 12/09/18 03:00 Dose: Not Given Ondansetron HCl (Zofran Inj) 4 mg IVP Q6H PRN PRN Reason: Nausea/Vomiting Last Admin: 12/04/18 13:34 Dose: 4 mg Oxycodone/Acetaminophen (Percocet 5/325 Mg Tab) 1 tab PO Q4H PRN PRN Reason: Pain, moderate (4-7) Stop: 12/10/18 07:28 Pantoprazole Sodium (Protonix Ec Tab) 40 mg PO 0600 [facility] Last Admin: 12/09/18 05:15 Dose: 40 mg - Labs Labs: 12/09/18 06:00 12/09/18 06:00 PT 12.8 SECONDS (9.4-12.5) H 12/04/18 06:00 INR 1.13 12/04/18 06:00 APTT 31.8 Seconds (26.9-38.3) 12/04/18 06:00 - Constitutional Appears: Non-toxic, No Acute Distress - Head Exam Head Exam: ATRAUMATIC, NORMOCEPHALIC - Eye Exam Eye Exam: EOMI. absent: Scleral icterus - ENT Exam ENT Exam: Mucous Membranes Moist Additional comments: trachea midline - Respiratory Exam Respiratory Exam: NORMAL BREATHING PATTERN. absent: Respiratory Distress - GI/Abdominal Exam GI & Abdominal Exam: Soft, Tenderness (mild at incision). absent: Distended, Firm, Guarding, Rigid, Rebound Additional comments: Terry 130cc x24hrs serous incisions c/d/i stoma pink, patent, edematous - Neurological Exam Neurological Exam: Alert, Awake - Skin Skin Exam: Dry, Warm Assessment and Plan - Assessment and Plan (Free Text) Assessment: 48F s/p Jeramie's procedure POD#5 for LBO 2/2 sigmoid mass Adenocarcinoma, 02/07 positive lymph node, T3N2 Plan: - monitor ostomy output - cont pain management - f/u Heme/Oncology recs for Chemo, PET scan (pt will need Rx for outpatient scan) - encourage OOB to chair/Amb/IS use - DVT PPx - PT/OT - ostomy training D/W Dr. Main PGY4
--- NOTE | 2018-12-09 12:46 | CP.PCM.PN ---
<Maikel Desai - Last Filed: 12/09/18 12:37> Subjective - Date & Time of Evaluation Date of Evaluation: 12/09/18 Time of Evaluation: 08:40 - Subjective Subjective: Maikel Desai DO PGY1 Hospitalist Progress Note for Dr Dobson Patient seen and examined at bedside. She reports no complaints. Pain controlled with meds. Colostomy bag with normal stool. Denies CP, SOB, palpitations. No acute events overnight Objective - Vital Signs/Intake and Output Vital Signs (last 24 hours): Temp Pulse Resp BP Pulse Ox 98 F 86 20 99/62 L 98 12/09/18 08:16 12/09/18 08:16 12/09/18 08:16 12/09/18 08:16 12/09/18 08:16 Intake and Output: 12/09/18 12/09/18 06:59 18:59 Intake Total 1160 Output Total 130 Balance 1030 - Medications Medications: Current Medications Acetaminophen (Tylenol 325mg Tab) 650 mg PO Q6H PRN PRN Reason: Pain, Mild (1-3) Benzocaine/Menthol (Cepacol Sore Throat) 1 amy MT Q2H PRN PRN Reason: Sore Throat Last Admin: 12/05/18 15:21 Dose: 1 amy Heparin Sodium (Porcine) (Heparin) 5,000 units SC Q8 [facility]; Protocol Last Admin: 12/09/18 05:15 Dose: 5,000 units Ketorolac Tromethamine (Toradol) 15 mg IVP Q6H [facility] Last Admin: 12/09/18 11:39 Dose: 15 mg Ondansetron HCl (Zofran Inj) 4 mg IVP Q6H PRN PRN Reason: Nausea/Vomiting Last Admin: 12/04/18 13:34 Dose: 4 mg Oxycodone/Acetaminophen (Percocet 5/325 Mg Tab) 1 tab PO Q4H PRN PRN Reason: Pain, moderate (4-7) Stop: 12/10/18 07:28 Pantoprazole Sodium (Protonix Ec Tab) 40 mg PO 0600 [facility] Last Admin: 12/09/18 05:15 Dose: 40 mg - Labs Labs: 12/09/18 06:00 12/09/18 06:00 PT 12.8 SECONDS (9.4-12.5) H 12/04/18 06:00 INR 1.13 12/04/18 06:00 APTT 31.8 Seconds (26.9-38.3) 12/04/18 06:00 - Constitutional Appears: Well, Non-toxic - Head Exam Head Exam: ATRAUMATIC, NORMAL INSPECTION, NORMOCEPHALIC - Eye Exam Eye Exam: EOMI, Normal appearance, PERRL Pupil Exam: NORMAL ACCOMODATION, PERRL - ENT Exam ENT Exam: Mucous Membranes Moist - Neck Exam Neck Exam: Normal Inspection - Respiratory Exam Respiratory Exam: Clear to Ausculation Bilateral, NORMAL BREATHING PATTERN - Cardiovascular Exam Cardiovascular Exam: REGULAR RHYTHM, +S1, +S2 - GI/Abdominal Exam GI & Abdominal Exam: Soft, Normal Bowel Sounds. absent: Tenderness Additional comments: martha 130cc of serous fluid in 24 hr. stoma functioning with normal stool. clean, intact incision - Extremities Exam Extremities Exam: Full ROM, Normal Capillary Refill, Normal Inspection. absent: Joint Swelling, Pedal Edema - Back Exam Back Exam: NORMAL INSPECTION - Neurological Exam Neurological Exam: Alert, Awake, CN II-XII Intact, Normal Gait, Oriented x3 - Psychiatric Exam Psychiatric exam: Normal Affect, Normal Mood - Skin Skin Exam: Dry, Intact, Normal Color, Warm Assessment and Plan - Assessment and Plan (Free Text) Assessment: 48 y/o female s/p Jeramie's procedure for LBO in the setting of sigmoid mass. POD#5 Plan: Large bowel obstruction s/p colon resection and colostomy/ POD 5: -patient asymptomatic, tolerating her regular diet, afebrile, normal stool in ostomy -monitor ELDON drain -continue pain contol tylenol/toradol/percocet -zofran prn -encourage ambulation Adenocarcinoma of the Colon/ stage T3N2b: -s/p Joshua's procedure -CT chest: negative for metastatic disease -f/u outpatient Heme/Onc recs for Chemo and PET scan Liver mass: -CT A/P with Liver protocol /triple phase CT: 8 mm hypodensity in the post segment -Hepatobiliary surgeon Dr Byers spoke with patient to have laparscopy surgery in [facility] on Tuesday or Tuesday Anemia: -H/H stable. given IV iron continue to monitor PPX: -DVT: SCD, heparin -GI: protonix -regular diet -continue PT Case reviewed and plan discussed with attending Dr Dobson <Una Dobson - Last Filed: 12/09/18 13:27> Objective - Vital Signs/Intake and Output Vital Signs (last 24 hours): Temp Pulse Resp BP Pulse Ox 98 F 86 20 99/62 L 98 12/09/18 08:16 12/09/18 08:16 12/09/18 08:16 12/09/18 08:16 12/09/18 08:16 Intake and Output: 12/09/18 12/09/18 06:59 18:59 Intake Total 1160 Output Total 130 Balance 1030 - Medications Medications: Current Medications Acetaminophen (Tylenol 325mg Tab) 650 mg PO Q6H PRN PRN Reason: Pain, Mild (1-3) Benzocaine/Menthol (Cepacol Sore Throat) 1 amy MT Q2H PRN PRN Reason: Sore Throat Last Admin: 12/05/18 15:21 Dose: 1 amy Heparin Sodium (Porcine) (Heparin) 5,000 units SC Q8 [facility]; Protocol Last Admin: 12/09/18 05:15 Dose: 5,000 units Ketorolac Tromethamine (Toradol) 15 mg IVP Q6H [facility] Last Admin: 12/09/18 11:39 Dose: 15 mg Ondansetron HCl (Zofran Inj) 4 mg IVP Q6H PRN PRN Reason: Nausea/Vomiting Last Admin: 12/04/18 13:34 Dose: 4 mg Oxycodone/Acetaminophen (Percocet 5/325 Mg Tab) 1 tab PO Q4H PRN PRN Reason: Pain, moderate (4-7) Stop: 12/10/18 07:28 Pantoprazole Sodium (Protonix Ec Tab) 40 mg PO 0600 [facility] Last Admin: 12/09/18 05:15 Dose: 40 mg - Labs Labs: 12/09/18 06:00 12/09/18 06:00 PT 12.8 SECONDS (9.4-12.5) H 12/04/18 06:00 INR 1.13 12/04/18 06:00 APTT 31.8 Seconds (26.9-38.3) 12/04/18 06:00 Attending/Attestation - Attestation I have personally seen and examined this patient.: Yes I have fully participated in the care of the patient.: Yes I have reviewed all pertinent clinical information, including history, physical exam and plan: Yes Notes (Text): 12/09/18 13:20 48 year old Irish speaking female with past medical history of benign thyroid mass s/p biopsy who presented with complaint of abdominal pain and constipation. She was found to have large bowel obstructin and underwent laparotomy, colon resection and colostomy POD #5. Continue with ostomy and ELDON drain care as per surgery. Pathology showed moderately differentiated adenocarcinoma with staging of T3N2. Hematology/oncology is following. CT liver showed liver lesion; case discussed with hepatobiliary surgeon who also discussed with patient and via translation regarding possible laparoscopic resection on Tuesday or Tuesday. Patient will also need outpatient PET scan and chemotherapy. Continue to monitor anemia closely. Una Dobson MD Hospitalist.
[2018-12-10] MEDS: Pantoprazole 40 mg EC Tab PO SCH (05:32)
[2018-12-10 06:59] LABS: BASO # 0.02 K/mm3 (0.0-2.0); BASO % 0.5 % (0.0-3.0); EOS # 0.3 (0.0-0.7); EOS % 6.5 % (1.5-5.0); HEMOGLOBIN 11.6 g/dL (12.0-16.0); LYMPH # 1.6 (1.2-3.4); LYMPH % 36.3 % (22.0-35.0); MEAN CELL VOLUME 84.2 fl (80.0-105.0); MEAN CORPUSCULAR HEMOGLOBIN 26.2 pg (25.0-35.0); MEAN CORPUSCULAR HGB CONC 31.1 g/dl (31.0-37.0); MEAN PLATELET VOLUME 9.1 fl (7.0-11.0); MONO # 0.4 (0.1-0.6); MONO % 7.9 % (1.0-6.0); RBC 4.43 10^6/uL (3.5-6.1); RED CELL DISTRIBUTION WIDTH 13.1 % (11.5-14.5); WHITE BLOOD COUNT 4.4 10^3/uL (4.5-11.0)
[2018-12-10 08:06] LABS: ALB/GLOB RATIO 1.1 (1.1-1.8); ALBUMIN 3.7 g/dL (3.0-4.8); ALT/SGPT 44 U/L (7-56); AST/SGOT 66 U/L (14-36); BLOOD UREA NITROGEN 16 mg/dL (7-21); CALCIUM 9.3 mg/dL (8.4-10.5); GFR NON-AFRICAN AMERICAN > 60
--- NOTE | 2018-12-10 08:16 | CP.PCM.PN ---
Subjective - Date & Time of Evaluation Date of Evaluation: 12/10/18 Time of Evaluation: 08:12 - Subjective Subjective: SURGERY NOTE FOR DR. SORIANO 48F seen and examined at bedside. Pain is controlled with medication, patient denies nausea or vomiting, she has been tolerating regular diet. Is having air and stool output from ostomy. Objective - Vital Signs/Intake and Output Vital Signs (last 24 hours): Temp Pulse Resp BP Pulse Ox 99.2 F 64 20 115/78 98 12/10/18 06:00 12/10/18 06:00 12/10/18 06:00 12/10/18 06:00 12/10/18 06:00 Intake and Output: 12/10/18 12/10/18 06:59 18:59 Intake Total 120 Output Total 130 Balance -10 - Medications Medications: Current Medications Acetaminophen (Tylenol 325mg Tab) 650 mg PO Q6H PRN PRN Reason: Pain, Mild (1-3) Benzocaine/Menthol (Cepacol Sore Throat) 1 amy MT Q2H PRN PRN Reason: Sore Throat Last Admin: 12/05/18 15:21 Dose: 1 amy Docusate Sodium (Colace) 100 mg PO BID [facility] Last Admin: 12/09/18 20:46 Dose: 100 mg Heparin Sodium (Porcine) (Heparin) 5,000 units SC Q8 [facility]; Protocol Last Admin: 12/10/18 05:33 Dose: 5,000 units Ketorolac Tromethamine (Toradol) 15 mg IVP Q6H [facility] Last Admin: 12/10/18 03:37 Dose: Not Given Ondansetron HCl (Zofran Inj) 4 mg IVP Q6H PRN PRN Reason: Nausea/Vomiting Last Admin: 12/04/18 13:34 Dose: 4 mg Pantoprazole Sodium (Protonix Ec Tab) 40 mg PO 0600 [facility] Last Admin: 12/10/18 05:32 Dose: 40 mg - Labs Labs: 12/10/18 06:30 12/10/18 06:30 PT 12.8 SECONDS (9.4-12.5) H 12/04/18 06:00 INR 1.13 12/04/18 06:00 APTT 31.8 Seconds (26.9-38.3) 12/04/18 06:00 - Constitutional Appears: Non-toxic, No Acute Distress - Respiratory Exam Respiratory Exam: Clear to Ausculation Bilateral, NORMAL BREATHING PATTERN - Cardiovascular Exam Cardiovascular Exam: REGULAR RHYTHM, +S1, +S2 - GI/Abdominal Exam GI & Abdominal Exam: Soft. absent: Distended, Firm, Guarding, Rigid, Tenderness, Rebound Additional comments: incision is clean dry and intact - drain output is serous with some blood tinged material - ostomy is pink and patent - Neurological Exam Neurological Exam: Alert, Awake - Skin Skin Exam: Dry, Intact, Normal Color, Warm Assessment and Plan - Assessment and Plan (Free Text) Assessment: 48F with sigmoid colon ca and met to liver is s/p theo's procedure for large bowel obstruction, POD#6 Plan: - control pain - continue diet - out of bed and ambulate - monitor drain and ostomy - f/u onc recs - f/u hepatic surgery recs - will order PET scan Further recs discuss with Dr. Adam Nolan, PGY3
--- NOTE | 2018-12-10 19:23 | CP.PCM.PN ---
<Maikel Desai - Last Filed: 12/10/18 22:20> Subjective - Date & Time of Evaluation Date of Evaluation: 12/10/18 Time of Evaluation: 09:10 - Subjective Subjective: Maikel Desai DO PGY1 Hospitalist Progress Note for Dr Dobson Patient seen and examined at bedside. She reports no complaints. Functioning stomy. Denies CP, SOB, palpitations. No acute events overnight Objective - Vital Signs/Intake and Output Vital Signs (last 24 hours): Temp Pulse Resp BP Pulse Ox 99.2 F 64 20 115/73 98 12/10/18 08:25 12/10/18 08:25 12/10/18 08:25 12/10/18 08:25 12/10/18 08:25 - Medications Medications: Current Medications Acetaminophen (Tylenol 325mg Tab) 650 mg PO Q6H PRN PRN Reason: Pain, Mild (1-3) Benzocaine/Menthol (Cepacol Sore Throat) 1 amy MT Q2H PRN PRN Reason: Sore Throat Last Admin: 12/05/18 15:21 Dose: 1 amy Docusate Sodium (Colace) 100 mg PO BID [facility] Last Admin: 12/10/18 17:44 Dose: 100 mg Heparin Sodium (Porcine) (Heparin) 5,000 units SC Q8 [facility]; Protocol Last Admin: 12/10/18 14:38 Dose: 5,000 units Ketorolac Tromethamine (Toradol) 15 mg IVP Q6H [facility] Last Admin: 12/10/18 18:50 Dose: 15 mg Ondansetron HCl (Zofran Inj) 4 mg IVP Q6H PRN PRN Reason: Nausea/Vomiting Last Admin: 12/04/18 13:34 Dose: 4 mg Pantoprazole Sodium (Protonix Ec Tab) 40 mg PO 0600 [facility] Last Admin: 12/10/18 05:32 Dose: 40 mg - Labs Labs: 12/10/18 06:30 12/10/18 06:30 PT 12.8 SECONDS (9.4-12.5) H 12/04/18 06:00 INR 1.13 12/04/18 06:00 APTT 31.8 Seconds (26.9-38.3) 12/04/18 06:00 - Additional Findings Additional findings: - Constitutional Appears: Well, Non-toxic - Head Exam Head Exam: ATRAUMATIC, NORMAL INSPECTION, NORMOCEPHALIC - Eye Exam Eye Exam: EOMI, Normal appearance, PERRL Pupil Exam: NORMAL ACCOMODATION, PERRL - ENT Exam ENT Exam: Mucous Membranes Moist - Neck Exam Neck Exam: Normal Inspection - Respiratory Exam Respiratory Exam: Clear to Ausculation Bilateral, NORMAL BREATHING PATTERN - Cardiovascular Exam Cardiovascular Exam: REGULAR RHYTHM, +S1, +S2 - GI/Abdominal Exam GI & Abdominal Exam: Soft, Normal Bowel Sounds. absent: Tenderness Additional comments: martha with serous fluid. stoma functioning with normal stool. clean, intact incision - Extremities Exam Extremities Exam: Full ROM, Normal Capillary Refill, Normal Inspection. absent: Joint Swelling, Pedal Edema - Back Exam Back Exam: NORMAL INSPECTION - Neurological Exam Neurological Exam: Alert, Awake, CN II-XII Intact, Normal Gait, Oriented x3 - Psychiatric Exam Psychiatric exam: Normal Affect, Normal Mood - Skin Skin Exam: Dry, Intact, Normal Color, Warm Assessment and Plan - Assessment and Plan (Free Text) Assessment: 48 y/o female s/p Jeramie's procedure for LBO in the setting of sigmoid mass. POD#6 Plan: Large bowel obstruction s/p colon resection and colostomy/ POD 5: -patient remains asymptomatic, tolerating her regular diet, afebrile, functioning ostomy -continue pain contol tylenol/toradol/percocet -monitor ELDON drain -continue zofran prn -encourage ambulation Adenocarcinoma of the Colon/ stage T3N2b: -s/p Joshua's procedure -f/u outpatient Heme/Onc recs for Chemo and PET scan -CT chest: negative for metastatic disease Liver mass: -CT A/P with Liver protocol /triple phase CT: 8 mm hypodensity in the post segment -Hepatobiliary surgeon Dr Byers spoke with patient to have laparscopic surgery in [facility] on Tuesday or Tuesday Anemia: -H/H stable. given IV iron continue to monitor PPX: -DVT: SCD, heparin -GI: protonix -regular diet -continue PT Case reviewed and plan discussed with attending Dr Dobson <Una Dobson - Last Filed: 12/11/18 07:27> Objective - Vital Signs/Intake and Output Vital Signs (last 24 hours): Temp Pulse Resp BP Pulse Ox 99.2 F 64 20 115/73 98 12/10/18 08:25 12/10/18 08:25 12/10/18 08:25 12/10/18 08:25 12/10/18 08:25 Intake and Output: 12/11/18 12/11/18 06:59 18:59 Intake Total 1200 Output Total 85 Balance 1115 - Medications Medications: Current Medications Acetaminophen (Tylenol 325mg Tab) 650 mg PO Q6H PRN PRN Reason: Pain, Mild (1-3) Benzocaine/Menthol (Cepacol Sore Throat) 1 amy MT Q2H PRN PRN Reason: Sore Throat Last Admin: 12/05/18 15:21 Dose: 1 amy Docusate Sodium (Colace) 100 mg PO BID [facility] Last Admin: 12/10/18 17:44 Dose: 100 mg Heparin Sodium (Porcine) (Heparin) 5,000 units SC Q8 [facility]; Protocol Last Admin: 12/11/18 05:15 Dose: Not Given Ketorolac Tromethamine (Toradol) 15 mg IVP Q6H [facility] Last Admin: 12/10/18 18:50 Dose: 15 mg Ondansetron HCl (Zofran Inj) 4 mg IVP Q6H PRN PRN Reason: Nausea/Vomiting Last Admin: 12/04/18 13:34 Dose: 4 mg Pantoprazole Sodium (Protonix Ec Tab) 40 mg PO 0600 [facility] Last Admin: 12/11/18 05:15 Dose: 40 mg - Labs Labs: 12/11/18 05:30 12/11/18 05:30 PT 12.8 SECONDS (9.4-12.5) H 12/04/18 06:00 INR 1.13 12/04/18 06:00 APTT 31.8 Seconds (26.9-38.3) 12/04/18 06:00 Attending/Attestation - Attestation I have personally seen and examined this patient.: Yes I have fully participated in the care of the patient.: Yes I have reviewed all pertinent clinical information, including history, physical exam and plan: Yes Notes (Text): 12/10/18 48 year old Upper Sorbian speaking female with past medical history of benign thyroid mass s/p biopsy who presented with complaint of abdominal pain and constipation. She was found to have large bowel obstruction and underwent laparotomy, colon resection and colostomy POD #6. Continue with ostomy and ELDON drain care as per surgery. Pathology showed moderately differentiated adenocarcinoma with staging of T3N2. Hematology/oncology is following. Case was discussed with Dr. Stark today. CT liver showed liver lesion; case discussed with hepatobiliary surgeon who also discussed with patient and via translation regarding possible laparoscopic resection at [facility] either tomorrow or Tuesday. Patient will also need outpatient PET scan and chemotherapy. May need port insertion after laparoscopic procedure as per Dr. Stark. Continue to monitor anemia closely. Una Dobson MD Hospitalist.
[2018-12-11] MEDS: Pantoprazole 40 mg EC Tab PO SCH (05:15)
[2018-12-11 06:17] LABS: BASO # 0.04 K/mm3 (0.0-2.0); BASO % 0.8 % (0.0-3.0); EOS # 0.3 (0.0-0.7); HEMOGLOBIN 11.2 g/dL (12.0-16.0); MEAN CELL VOLUME 83.8 fl (80.0-105.0); MEAN CORPUSCULAR HEMOGLOBIN 26.4 pg (25.0-35.0); MEAN CORPUSCULAR HGB CONC 31.5 g/dl (31.0-37.0); MONO # 0.4 (0.1-0.6); MONO % 7.4 % (1.0-6.0); RBC 4.25 10^6/uL (3.5-6.1); RED CELL DISTRIBUTION WIDTH 13.2 % (11.5-14.5)
[2018-12-11 07:13] LABS: ALB/GLOB RATIO 1.1 (1.1-1.8); ALBUMIN 3.4 g/dL (3.0-4.8); ALT/SGPT 44 U/L (7-56); AST/SGOT 57 U/L (14-36); BLOOD UREA NITROGEN 20 mg/dL (7-21); CALCIUM 9.1 mg/dL (8.4-10.5); GFR NON-AFRICAN AMERICAN > 60
--- NOTE | 2018-12-11 10:27 | CP.PCM.PN ---
Subjective - Date & Time of Evaluation Date of Evaluation: 12/11/18 Time of Evaluation: 07:25 - Subjective Subjective: Patient seen and examined this am at bedside. No acute events overnight. Patient states pain is well controlled. Otherwise denies VELÁZQUEZ, SOB, CP, and n/v, f/c. Objective - Vital Signs/Intake and Output Vital Signs (last 24 hours): Temp Pulse Resp BP Pulse Ox 98 F 66 20 106/67 97 12/11/18 08:15 12/11/18 08:15 12/11/18 08:15 12/11/18 08:15 12/11/18 08:15 Intake and Output: 12/11/18 12/11/18 06:59 18:59 Intake Total 1200 Output Total 85 Balance 1115 - Medications Medications: Current Medications Acetaminophen (Tylenol 325mg Tab) 650 mg PO Q6H PRN PRN Reason: Pain, Mild (1-3) Benzocaine/Menthol (Cepacol Sore Throat) 1 amy MT Q2H PRN PRN Reason: Sore Throat Last Admin: 12/05/18 15:21 Dose: 1 amy Docusate Sodium (Colace) 100 mg PO BID [facility] Last Admin: 12/11/18 09:03 Dose: 100 mg Heparin Sodium (Porcine) (Heparin) 5,000 units SC Q8 [facility]; Protocol Last Admin: 12/11/18 05:15 Dose: Not Given Ondansetron HCl (Zofran Inj) 4 mg IVP Q6H PRN PRN Reason: Nausea/Vomiting Last Admin: 12/04/18 13:34 Dose: 4 mg Pantoprazole Sodium (Protonix Ec Tab) 40 mg PO 0600 [facility] Last Admin: 12/11/18 05:15 Dose: 40 mg - Labs Labs: 12/11/18 05:30 12/11/18 05:30 PT 12.8 SECONDS (9.4-12.5) H 12/04/18 06:00 INR 1.13 12/04/18 06:00 APTT 31.8 Seconds (26.9-38.3) 12/04/18 06:00 - Constitutional Appears: Well, Non-toxic, No Acute Distress - Head Exam Head Exam: ATRAUMATIC, NORMOCEPHALIC - Eye Exam Eye Exam: EOMI - ENT Exam ENT Exam: Mucous Membranes Moist - Respiratory Exam Respiratory Exam: NORMAL BREATHING PATTERN - Cardiovascular Exam Cardiovascular Exam: Tachycardia - GI/Abdominal Exam GI & Abdominal Exam: Soft. absent: Tenderness Additional comments: incision is clean dry and intact - drain output is serous with some blood tinged material - ostomy is pink and patent - Neurological Exam Neurological Exam: Alert, Awake, Oriented x3 - Psychiatric Exam Psychiatric exam: Normal Affect, Normal Mood - Skin Skin Exam: Dry, Intact, Normal Color, Warm Assessment and Plan - Assessment and Plan (Free Text) Assessment: 48F with sigmoid colon ca and met to liver is s/p theo's procedure for large bowel obstruction, POD#7 Plan: - control pain - continue diet - out of bed and ambulate - monitor drain and ostomy - f/u onc recs - f/u hepatic surgery recs - will order PET scan - possible transfer to [facility] 12/12-12/13 for hepatic surgery management Further recs discuss with Dr. Medina
--- NOTE | 2018-12-11 14:54 | CP.PCM.PN ---
<Cristobal Denise Simeon - Last Filed: 12/11/18 14:51> Subjective - Date & Time of Evaluation Date of Evaluation: 12/11/18 Time of Evaluation: 14:51 - Subjective Subjective: Medicine progress note - Camelia PGY - 2 Patient seen and examined at bedside. No acute overnight events. Patient denies any complaints at this time. Objective - Vital Signs/Intake and Output Vital Signs (last 24 hours): Temp Pulse Resp BP Pulse Ox 98 F 66 20 106/67 97 12/11/18 08:15 12/11/18 08:15 12/11/18 08:15 12/11/18 08:15 12/11/18 08:15 Intake and Output: 12/11/18 12/11/18 06:59 18:59 Intake Total 1200 Output Total 85 Balance 1115 - Medications Medications: Current Medications Acetaminophen (Tylenol 325mg Tab) 650 mg PO Q6H PRN PRN Reason: Pain, Mild (1-3) Benzocaine/Menthol (Cepacol Sore Throat) 1 amy MT Q2H PRN PRN Reason: Sore Throat Last Admin: 12/05/18 15:21 Dose: 1 amy Docusate Sodium (Colace) 100 mg PO BID [facility] Last Admin: 12/11/18 09:03 Dose: 100 mg Heparin Sodium (Porcine) (Heparin) 5,000 units SC Q8 [facility]; Protocol Last Admin: 12/11/18 14:10 Dose: 5,000 units Ondansetron HCl (Zofran Inj) 4 mg IVP Q6H PRN PRN Reason: Nausea/Vomiting Last Admin: 12/04/18 13:34 Dose: 4 mg Pantoprazole Sodium (Protonix Ec Tab) 40 mg PO 0600 [facility] Last Admin: 12/11/18 05:15 Dose: 40 mg - Labs Labs: 12/11/18 05:30 12/11/18 05:30 PT 12.8 SECONDS (9.4-12.5) H 12/04/18 06:00 INR 1.13 12/04/18 06:00 APTT 31.8 Seconds (26.9-38.3) 12/04/18 06:00 - Constitutional Appears: Well - Head Exam Head Exam: ATRAUMATIC, NORMAL INSPECTION, NORMOCEPHALIC - Eye Exam Eye Exam: EOMI, Normal appearance, PERRL Pupil Exam: NORMAL ACCOMODATION, PERRL - ENT Exam ENT Exam: Mucous Membranes Moist, Normal Exam - Neck Exam Neck Exam: Full ROM, Normal Inspection. absent: Lymphadenopathy - Respiratory Exam Respiratory Exam: Clear to Ausculation Bilateral, NORMAL BREATHING PATTERN - Cardiovascular Exam Cardiovascular Exam: REGULAR RHYTHM, +S1, +S2. absent: Murmur - GI/Abdominal Exam GI & Abdominal Exam: absent: Tenderness - Extremities Exam Extremities Exam: Full ROM, Normal Capillary Refill, Normal Inspection. absent: Joint Swelling, Pedal Edema - Back Exam Back Exam: NORMAL INSPECTION - Neurological Exam Neurological Exam: Alert, Awake, CN II-XII Intact, Normal Gait, Oriented x3 - Psychiatric Exam Psychiatric exam: Normal Affect, Normal Mood - Skin Skin Exam: Dry, Intact, Normal Color, Warm Assessment and Plan - Assessment and Plan (Free Text) Assessment: Large bowel obstruction s/p colon resection and colostomy/ POD 5 - Continue pain control tylenol/toradol/percocet - Monitor ELDON drain, as per surgical team - Continue zofran prn - Patient is passing stool into ostomy, gave kayexalate this AM Adenocarcinoma of the Colon/ stage T3N2b: - s/p Joshua's procedure - f/u outpatient Heme/Onc recs for Chemo and PET scan - CT chest: negative for metastatic disease Liver mass: - CT A/P with Liver protocol /triple phase CT: 8 mm hypodensity in the post segment - Laparoscopic resection scheduled for Tuesday with Dr. Luo - Coordinating with case management Anemia: - H/H stable s/p venofer PPX: - DVT: SCD, heparin - GI: protonix - Regular diet - Continue PT <Una Dobson A - Last Filed: 12/11/18 16:02> Objective - Vital Signs/Intake and Output Vital Signs (last 24 hours): Temp Pulse Resp BP Pulse Ox 98 F 66 20 106/67 97 12/11/18 08:15 12/11/18 08:15 12/11/18 08:15 12/11/18 08:15 12/11/18 08:15 Intake and Output: 12/11/18 12/11/18 06:59 18:59 Intake Total 1200 Output Total 85 Balance 1115 - Medications Medications: Current Medications Acetaminophen (Tylenol 325mg Tab) 650 mg PO Q6H PRN PRN Reason: Pain, Mild (1-3) Benzocaine/Menthol (Cepacol Sore Throat) 1 amy MT Q2H PRN PRN Reason: Sore Throat Last Admin: 12/05/18 15:21 Dose: 1 amy Docusate Sodium (Colace) 100 mg PO BID [facility] Last Admin: 12/11/18 09:03 Dose: 100 mg Heparin Sodium (Porcine) (Heparin) 5,000 units SC Q8 [facility]; Protocol Last Admin: 12/11/18 14:10 Dose: 5,000 units Ondansetron HCl (Zofran Inj) 4 mg IVP Q6H PRN PRN Reason: Nausea/Vomiting Last Admin: 12/04/18 13:34 Dose: 4 mg Pantoprazole Sodium (Protonix Ec Tab) 40 mg PO 0600 [facility] Last Admin: 12/11/18 05:15 Dose: 40 mg - Labs Labs: 12/11/18 05:30 12/11/18 05:30 PT 12.8 SECONDS (9.4-12.5) H 12/04/18 06:00 INR 1.13 12/04/18 06:00 APTT 31.8 Seconds (26.9-38.3) 12/04/18 06:00 Attending/Attestation - Attestation I have personally seen and examined this patient.: Yes I have fully participated in the care of the patient.: Yes I have reviewed all pertinent clinical information, including history, physical exam and plan: Yes Notes (Text): 12/11/18 16:00 48 year old Slovak speaking female with past medical history of benign thyroid ma ss s/p biopsy who presented with complaint of abdominal pain and constipation. She was found to have large bowel obstruction and underwent laparotomy, colon resection and colostomy POD #7. Continue with ostomy and ELDON drain care as per surgery. Pathology showed moderately differentiated adenocarcinoma with staging of T3N2. Hematology/oncology is following. CT liver showed liver lesion; case discussed with hepatobiliary surgeon who also discussed with patient and via translation regarding possible laparoscopic resection at [facility] likely on Tuesday. Will discuss with CMx/Sw regarding possible transfer 12/12 or 12/13 for procedure to be done at [facility]. As per Dr. Rockwall patient may need chemoport following procedure. Patient will also need outpatient PET scan and chemotherapy. Continue to monitor anemia closely. Una Dobson MD Hospitalist.
[2018-12-12 00:44] VITALS: RESP 20
[2018-12-12] MEDS: Pantoprazole 40 mg EC Tab PO SCH (05:22)
[2018-12-12 07:19] LABS: BASO # 0.03 K/mm3 (0.0-2.0); BASO % 0.5 % (0.0-3.0); EOS # 0.3 (0.0-0.7); EOS % 5.2 % (1.5-5.0); HEMOGLOBIN 11.6 g/dL (12.0-16.0); LYMPH # 2.1 (1.2-3.4); LYMPH % 35.7 % (22.0-35.0); MEAN CORPUSCULAR HEMOGLOBIN 26.9 pg (25.0-35.0); MEAN PLATELET VOLUME 8.9 fl (7.0-11.0); MONO # 0.4 (0.1-0.6); MONO % 6.3 % (1.0-6.0); RBC 4.31 10^6/uL (3.5-6.1); RED CELL DISTRIBUTION WIDTH 13.1 % (11.5-14.5); WHITE BLOOD COUNT 5.8 10^3/uL (4.5-11.0)
--- NOTE | 2018-12-12 07:35 | CP.PCM.PN ---
Subjective - Date & Time of Evaluation Date of Evaluation: 12/12/18 Time of Evaluation: 07:05 - Subjective Subjective: General Surgery Pt seen and examined. No issues overnight. Plan to transfer to [facility] for surgery in the morning. Pt and family are aware. Objective - Vital Signs/Intake and Output Vital Signs (last 24 hours): Temp Pulse Resp BP Pulse Ox 98.3 F 69 20 115/73 97 12/12/18 00:00 12/12/18 00:00 12/12/18 00:00 12/12/18 00:00 12/12/18 00:00 Intake and Output: 12/12/18 12/12/18 06:59 18:59 Intake Total 840 Output Total 80 Balance 760 - Medications Medications: Current Medications Acetaminophen (Tylenol 325mg Tab) 650 mg PO Q6H PRN PRN Reason: Pain, Mild (1-3) Benzocaine/Menthol (Cepacol Sore Throat) 1 amy MT Q2H PRN PRN Reason: Sore Throat Last Admin: 12/05/18 15:21 Dose: 1 amy Docusate Sodium (Colace) 100 mg PO BID [facility] Last Admin: 12/11/18 17:34 Dose: 100 mg Heparin Sodium (Porcine) (Heparin) 5,000 units SC Q8 [facility]; Protocol Last Admin: 12/12/18 05:22 Dose: 5,000 units Ondansetron HCl (Zofran Inj) 4 mg IVP Q6H PRN PRN Reason: Nausea/Vomiting Last Admin: 12/04/18 13:34 Dose: 4 mg Pantoprazole Sodium (Protonix Ec Tab) 40 mg PO 0600 [facility] Last Admin: 12/12/18 05:22 Dose: 40 mg - Labs Labs: 12/12/18 07:00 12/11/18 05:30 PT 12.8 SECONDS (9.4-12.5) H 12/04/18 06:00 INR 1.13 12/04/18 06:00 APTT 31.8 Seconds (26.9-38.3) 12/04/18 06:00 - Constitutional Appears: Non-toxic, No Acute Distress - Head Exam Head Exam: ATRAUMATIC, NORMOCEPHALIC - Eye Exam Eye Exam: EOMI. absent: Scleral icterus - Respiratory Exam Respiratory Exam: NORMAL BREATHING PATTERN. absent: Respiratory Distress - GI/Abdominal Exam GI & Abdominal Exam: Soft, Tenderness ( mild at incision site.). absent: D istended, Firm, Guarding, Rigid, Rebound Additional comments: incision C/D/I ostomy pink, viable Drain in place with serous drainage - Extremities Exam Extremities Exam: Normal Capillary Refill. absent: Pedal Edema - Back Exam Back Exam: absent: CVA tenderness (L), CVA tenderness (R) - Neurological Exam Neurological Exam: Alert, Awake, Oriented x3 - Skin Skin Exam: Dry, Warm Assessment and Plan - Assessment and Plan (Free Text) Assessment: 48F with sigmoid colon ca and met to liver is s/p theo's procedure for large bowel obstruction, POD#8 Plan: -Transfer to [facility] [place] 6/4 for hepatic surgery -Continue diet -Encouraged ambulation and IS use -Monitor drain and ostomy D/W Dr. Adam Vallejo PGY4
[2018-12-12 08:00] LABS: ALB/GLOB RATIO 1.1 (1.1-1.8); ALBUMIN 3.7 g/dL (3.0-4.8); ALT/SGPT 41 U/L (7-56); AST/SGOT 35 U/L (14-36); BLOOD UREA NITROGEN 18 mg/dL (7-21); CALCIUM 8.9 mg/dL (8.4-10.5); GFR NON-AFRICAN AMERICAN > 60
[2018-12-12 16:02] VITALS: BP 108/69; PULSE 73; TEMP 97.4; O2SAT 100
--- NOTE | 2018-12-12 17:36 | CP.PCM.PN ---
Subjective - Date & Time of Evaluation Date of Evaluation: 12/12/18 Time of Evaluation: 14:00 - Subjective Subjective: No complaints. Objective - Vital Signs/Intake and Output Vital Signs (last 24 hours): Temp Pulse Resp BP Pulse Ox 97.4 F L 73 20 108/69 100 12/12/18 16:01 12/12/18 16:01 12/12/18 16:01 12/12/18 16:01 12/12/18 16:01 Intake and Output: 12/12/18 12/12/18 06:59 18:59 Intake Total 840 Output Total 80 80 Balance 760 -80 - Labs Labs: 12/12/18 07:00 12/12/18 07:00 PT 12.8 SECONDS (9.4-12.5) H 12/04/18 06:00 INR 1.13 12/04/18 06:00 APTT 31.8 Seconds (26.9-38.3) 12/04/18 06:00 - Head Exam Head Exam: ATRAUMATIC - Eye Exam Eye Exam: Normal appearance - ENT Exam ENT Exam: Mucous Membranes Dry - Respiratory Exam Respiratory Exam: NORMAL BREATHING PATTERN - Cardiovascular Exam Cardiovascular Exam: +S1, +S2 - GI/Abdominal Exam GI & Abdominal Exam: Normal Bowel Sounds Assessment and Plan (1) Colon cancer Assessment & Plan: obstructing mass s/p hemicolectomy - [id number] isolated liver lesion ? metastatic disease - for liver resection at [facility] [place] outpatient chemotherapy Status: Acute (2) Anemia Assessment & Plan: chronic disease Status: Acute
== END 2018-12-12 16:16 | disposition short-term general hospital (02) | DRG 221 ==
LOC: ED 23:52 → ERH 12-01 04:21 → 3RNO 12-01 05:06 → OBSVTOIN 12-02 07:27 → 3RNO 12-03 17:37
PROVIDERS: ADMIT Hospitalist; ATTEND Internal Medicine
PROC: 0DTG0ZZ Resection of Left Large Intestine, Open Approach (ICD-10-PCS; principal; 2018-12-04 20:15)
PROC: 0D1M0Z4 Bypass Descending Colon to Cutaneous, Open Approach (ICD-10-PCS; 2018-12-04 20:15)
DX: C18.6 Malignant neoplasm of descending colon (principal); K56.699 Other intestinal obstruction unspecified as to partial versus complete obstruction; C77.2 Secondary and unspecified malignant neoplasm of intra-abdominal lymph nodes; C78.7 Secondary malignant neoplasm of liver and intrahepatic bile duct; D64.9 Anemia, unspecified; E87.6 Hypokalemia; Z83.3 Family history of diabetes mellitus